=== PATIENT | female | born 1945 | race Caucasian/White ===

== ENCOUNTER → 2016-11-05 | Outpatient (CLI) | payer MEDICARE ==
--- NOTE | 2016-11-09 12:45 | MM ---
Reason for exam: screening (asymptomatic). Last mammogram was performed 1 year ago. History: Patient is postmenopausal. Physical Findings: A clinical breast exam by your physician is recommended on an annual basis and results should be correlated with mammographic findings. MG 3D Screening Mammo W/Cad Bilateral CC and MLO view(s) were taken. Prior study comparison: November 05, 2015, bilateral MG 3d screening mammo w/cad. October 05, 2014, bilateral MG screening mammo w CAD. The breast tissue is almost entirely fat. There is chronic nodularity in the right breast No significant changes when compared with prior studies. ASSESSMENT: Benign, BI-RAD 2 RECOMMENDATION: Routine screening mammogram of both breasts in 1 year.
== END | disposition home or self-care (01) ==
LOC: RADMAMWWP 09:10
PROVIDERS: ATTEND Family Medicine
DX: Z12.31 Encounter for screening mammogram for malignant neoplasm of breast (principal)
CPT/HCPCS: 77063; G0202

== ENCOUNTER → 2016-11-11 | Outpatient (CLI) | payer MEDICARE ==
--- NOTE | 2016-11-12 06:32 | WWHP ---
DATE OF SERVICE: 11/11/2016 CHIEF COMPLAINT: The patient is here for her routine gynecologic exam. HPI: This is a 70-year-old, G2, P2 with an LMP of 1993. The patient is without gynecologic complaints. She denies any postmenopausal bleeding. She does have occasional hot flashes. She did have a mammogram on 11/05/2016, which was benign. PAST MEDICAL HISTORY: Chronic back problems, arthritis, asthma, and hip problems. MEDICATIONS: 1. Hydrocodone t.i.d. p.r.n. 2. Atarax p.r.n. 3. Albuterol inhaler p.r.n. Allergies to ASPIRIN and NSAID medications. Past surgical, GENERALIST, and family histories are unchanged from the 2016 H&P. SOCIAL HISTORY: She has cut down to 1/2 pack of cigarettes per day and has about 3 alcoholic drinks per year and denies drug use. She is not sexually active. REVIEW OF SYSTEMS: She has gained about 19 pounds over the last year. This was after losing about 70 pounds after bariatric surgery. She denies respiratory, cardiac, or GI problems. She denies maltreatment or falling. : She denies any significant urinary leakage problems, but feels like she does urinate more often than she used to in the past. PHYSICAL EXAM: Blood pressure 141/90. Height 5 feet 7 inches. Weight 233 pounds. Temperature 98.4, pulse 87. This a well-developed, heavyset white female who is alert and oriented x3 in no acute distress. HEENT is within normal limits. NECK: Supple without mass or thyromegaly. CHEST AND LUNGS: Clear to auscultation. HEART: Regular rate and rhythm. Breasts are without mass or discharge. Axillary exam is negative for adenopathy. BACK: Negative for CVA tenderness. ABDOMEN: Obese, soft, nontender, without palpable masses. PELVIC EXAM: External genitalia reveals mild to moderate atrophy without lesions. Cervix and vagina reveal mild atrophy without lesions. There is no evidence of prolapse. The uterus is midposition, nongravid size and nontender. There are no palpable adnexal masses or tenderness. Rectovaginal exam is negative for mass or tenderness and is negative for occult blood. EXTREMITIES: Nontender. IMPRESSION: 1. A 70-year-old menopausal female with normal gynecologic exam. 2. Mildly elevated blood pressure. PLAN: 1. Pap smear was deferred, since she had a normal one last year. 2. Self breast examination was discussed. 3. Mammogram will be due in one year. 4. She did get her flu shot early in flu season. 5. We have discussed her mildly elevated blood pressure. She will have her blood pressure checked on a regular basis and follow up with Dr. Gutierrez for blood pressure elevations. 6. I have recommended that she try to quit smoking. 7. She will return in one year.
== END ==
LOC: WWCWWP 11:27
PROVIDERS: ATTEND Obstetrics & Gynecology
DX: Z00.00 Encounter for general adult medical examination without abnormal findings (principal)

== ENCOUNTER 2017-01-02 12:02 | Emergency (ER) | payer MEDICARE ==
[2017-01-02] MEDS ORDERED: MORPHINE SULFATE 4 MG/ML SYRINGE IV STA (12:22)
--- NOTE | 2017-01-02 12:27 | ED ---
General Adult HPI - General Source: EMS, RN notes reviewed Mode of arrival: EMS Limitations: no limitations <Roel Petty - Last Filed: 01/02/17 14:57> <Ger Arita - Last Filed: 01/02/17 15:01> - General Chief complaint: Extremity Injury, Lower Stated complaint: Fall Time Seen by Provider: 01/02/17 12:16 - History of Present Illness Initial comments: Patient 71-year-old female who presents emergency room today by EMS, the chief complaint of fall occurred just prior to arrival. She does admit to a recent hip replacement on 11/17/2016. She states that she was outside sitting a chair pulling weeds. She states she was time for her to move the chair when she got up to move it lost her balance and fell forward. She states she does not believe that she landed on the right hip. She does admit that this is the area that she is experiencing the pain. She states worse with any movement. She denies any head injury or loss consciousness. States she's not on any blood thinners. Denies any other complaints currently. (Roel Petty) - Related Data Home Medications Medication Instructions Recorded Confirmed Baclofen 10 mg PO TID PRN 12/19/14 09/03/15 Ipratropium/Albuterol Sulfate 1 - 2 puff INHALATION RT-QID PRN 12/19/14 09/03/15 [Combivent Respimat Inhaler] Omeprazole [PriLOSEC] 20 mg PO TID 12/19/14 09/03/15 Acetaminophen-Codeine 300-30mg 1 tab PO Q4H PRN 08/28/15 09/03/15 [Tylenol w/codeine #3] Multivitamins, Thera [Multivitamin 1 tab PO DAILY 08/28/15 09/03/15 (formulary)] Previous Rx's Medication Instructions Recorded Cephalexin [Keflex] 500 mg PO Q6HR #28 cap 09/04/15 Docusate [Colace] 100 mg PO BID #30 capsule 09/05/15 HYDROcodone/APAP 7.5-325MG [Prue 1 - 2 each PO Q6HR PRN #60 tab 09/05/15 7.5-325] Warfarin [Coumadin] 1.25 mg PO DAILY #14 tab 09/05/15 Allergies Allergy/AdvReac Type Severity Reaction Status Date / Time aspirin Allergy Anaphylaxis Verified 01/02/17 12:10 hydrocodone Allergy Itching Verified 01/02/17 12:10 NSAIDS (Non-Steroidal Allergy Anaphylaxis,ADDISON Verified 01/02/17 12:10 Anti-Inflamma -PARTHA SYNDROME Review of Systems ROS Other: All systems not noted in ROS Statement are negative. <Roel Petty - Last Filed: 01/02/17 14:57> ROS Other: All systems not noted in ROS Statement are negative. <Ger Arita - Last Filed: 01/02/17 15:01> ROS Statement: Those systems with pertinent positive or pertinent negative responses have been documented in the HPI. Past Medical History Past Medical History: Asthma, COPD, GERD/Reflux, Hearing Disorder / Deafness, Osteoarthritis (OA) Additional Past Medical History / Comment(s): 09/03/15 Pt admitted to floor s/p humeral head resurfacing arthroplasty L shoulder. Other HX: SEMINOLE bilaterally- sometimes wears hearing aides-not here at hospital History of Any Multi-Drug Resistant Organisms: None Reported Past Surgical History: Appendectomy, Bariatric Surgery, Cholecystectomy, Joint Replacement, Orthopedic Surgery, Tonsillectomy, Tubal Ligation Additional Past Surgical History / Comment(s): 09/03/15 Humoral head resurfacing arthroplasty L shoulder. Other surgeries: R humeral head replacement, LEFT KNEE ARTHROSCOPIC, GASTRIC BYPASS,TOTAL LEFT KNEE,RIGHT ULNAR RELEASE Additional Past Anesthesia/Blood Transfusion Reaction / Comment(s): "STATES WITH ULNAR RELEASE SHE WOKE UP DURING THE SURGERY AND FELT PAIN" Past Psychological History: No Psychological Hx Reported Additional Psychological History / Comment(s): Pt has a son who lives with her. She is independent. She has a cane or walker which she uses prn. She drives. Smoking Status: Current every day smoker Past Alcohol Use History: None Reported Additional Past Alcohol Use History / Comment(s): STARTED SMOKING AT AGE 20 Past Drug Use History: None Reported - Past Family History Father Family Medical History: Cancer Additional Family Medical History / Comment(s): LIVER CANCER <Roel Petty - Last Filed: 01/02/17 14:57> General Exam Limitations: no limitations <Roel Petty - Last Filed: 01/02/17 14:57> <Ger Arita - Last Filed: 01/02/17 15:01> - General Exam Comments Initial Comments: General: The patient is awake and alert, in no distress, and does not appear acutely ill. Eye: Pupils are equal, round and reactive to light, extra-ocular movements are intact. No nystagmus. There is normal conjunctiva bilaterally. No signs of icterus. Ears, nose, mouth and throat: There are moist mucous membranes and no oral lesions. Neck: The neck is supple, there is no tenderness or JVD. Cardiovascular: There is a regular rate and rhythm. No murmur, rub or gallop is appreciated. Respiratory: Lungs are clear to auscultation, respirations are non-labored, breath sounds are equal. No wheezes, stridor, rales, or rhonchi. Gastrointestinal: Soft, non-distended, non-tender abdomen without masses or organomegaly noted. There is no rebound or guarding present. No CVA tenderness. Bowel sounds are unremarkable. Musculoskeletal: Patient does have her right knee propped underneath pillow. She does have some tenderness over both the lateral and anterolateral aspects of the right hip. Had pain with a log roll maneuver. Her sensations are intact with pulses equal bilaterally 2+. Patient has no bony tenderness down into the right hip or right ankle. Neurological: A&O x 3. CN II-XII intact, There are no obvious motor or sensory deficits. Coordination appears grossly intact. Speech is normal. Skin: Skin is warm and dry and no rashes or lesions are noted. Psychiatric: Cooperative, appropriate mood & affect, normal judgment. (Roel Petty) Course <Roel Petty - Last Filed: 01/02/17 14:57> <Ger Arita - Last Filed: 01/02/17 15:01> Vital Signs 01/02/17 01/02/17 01/02/17 12:11 13:24 14:15 Temperature 98.7 F Pulse Rate 92 84 90 Respiratory 20 20 Rate Blood Pressure 158/80 157/85 193/89 O2 Sat by Pulse 87 L 87 L 92 L Oximetry 01/02/17 01/02/17 01/02/17 14:16 14:18 14:39 Temperature Pulse Rate 86 84 Respiratory 20 18 16 Rate Blood Pressure 224/102 170/76 168/75 O2 Sat by Pulse 100 100 89 L Oximetry - Reevaluation(s) Reevaluation #1: 05/27/17 13:05 Orthopedic physician floral assistant Kieran was notified and will come to the ER to see patient and to reduce hip. (Roel Petty) Procedures <Roel Petty - Last Filed: 01/02/17 14:57> <Ger Arita - Last Filed: 01/02/17 15:01> - Procedures Initial comment: procedure; conscious sedation. Patient signed consent after explanation for benefits and risks explained. The patient was attended at bedside by the ER physician respiratory therapy technician nurse orthopedic surgeon and also physician's floral assistant. The patient was sedated using 20 mg of etomidate. Good sedation , hip reduced. Post x-ray showed hip to be replaced. Patient tolerated procedure well. Total length of procedure 25 minutes. Vital signs were recorded before during and after. Dr. Arita (Ger Arita) Medical Decision Making <Roel Petty - Last Filed: 01/02/17 14:57> <Ger Arita - Last Filed: 01/02/17 15:01> - Medical Decision Making patient was seen here in the emergency room by orthopedic doctor Dr. Deleon who did perform conscious sedation along with the ER attending Dr. Arita. Reduction films reviewed and shows good reduction. Patient will be discharged home advised follow-up with orthopedic. She's been instructed by or so to not do any bending greater than 90 at that hip. Patient states understanding and is aware the plan. (Roel Petty) Disposition Time of Disposition: 14:55 <Roel Petty - Last Filed: 01/02/17 14:57> <Ger Arita - Last Filed: 01/02/17 15:01> Clinical Impression: Hip dislocation, right Disposition: HOME SELF-CARE Condition: Good Instructions: Hip Dislocation (ED) Additional Instructions: Please follow-up with your orthopedic doctor over the next 2 days. Please refrain from any bending at the hip as discussed. Please return to emergency room if any symptoms increase or worsen or for any other concerns. Referrals: Fan Gutierrez DO [Primary Care Provider] - 1-2 days
[2017-01-02] MEDS ORDERED: ETOMIDATE 2 MG/ML 10 ML VIAL IVP STA (13:24)
--- NOTE | 2017-01-02 13:41 | XR ---
EXAMINATION TYPE: XR Hip RT and AP Pelvis DATE OF EXAM: 01/02/2017 COMPARISON: Right hip 20 July 2016 HISTORY: Trauma and pain 2 views of the right hip, frontal view of the pelvis submitted Patient is status post right hip arthroplasty, there is dislocation at the hip arthroplasty, hip is s omewhat posterior and lateral to the acetabulum. No evident fracture. IMPRESSION: Right hip arthroplasty dislocation
[2017-01-02] MEDS ORDERED: hydrALAZINE HCL 20 MG/ML 1 ML VIAL IVP STA (14:24)
[2017-01-02] MEDS ORDERED: MORPHINE SULFATE 10 MG/ML SYRINGE IVP STA (14:24)
--- NOTE | 2017-01-02 14:43 | P.OP ---
Date of Procedure: 01/02/17 Preoperative Diagnosis: Right total hip arthroplasty dislocation 6 weeks status post right hip total joint arthroplasty done in [facility] Right hip pain status post fall Postoperative Diagnosis: Same Procedure(s) Performed: Implants: Condition: stable Disposition: other (In the emergency room) Indications for Procedure: Operative Findings: Description of Procedure: Preoperative diagnosis: Right hip arthroplasty dislocation status post fall, acute Status post total hip arthroplasty approximately 6 weeks ago done at an outside institution Postoperative diagnosis: Same Procedure: Closed reduction of right hip arthroplasty dislocation Surgeon: Dr. Pancho Coppola.: José Miguel Sanchez who is present that the entire the case persistence during positioning dissection exposure placement of hardware and closure Anesthesia: Sedation per Dr. Arita in the emergency room Disposition: In the emergency room recovery appropriately Operative indications . She initially had been making good progress postoperatively and apparently had an uneventful recovery. She is at home and trying to do some work in her yard pulling weeds while sitting on a seat. She says that when she try to get up she felt sudden pain at her hip and had a fall. She denies any loss of consciousness. She denies any fevers chills night sweats. She denies any neurologic change in her lower extremity. Operative summary After obtaining informed consent evaluation by the emergency room physician, the patient was given etomidate sedation through the IV with the emergency room physician and respiratory as well as nursing staff present with us. The patient was positioned supine position onto her stretcher and when she was fully sedated with her airway and C-spine monitored and maintained we are able to do a closed reduction technique at her right hip with gentle traction and the comminution of internal/external rotation. We able to have an audible clunk and apparent good reduction of the hip prosthesis without apparent, patient. Her hip was taken through a range of motion found have good relative stability and good leg length. Her ulcers remained intact. The patient woke up appropriately and had good relief of her pain and good motor and sensation at her right lower extremity. We're able place a pillow between her legs and reiterate the hip dislocation precautions. She had post reduction x-rays which showed a concentric reduction of the prosthesis without any apparent loosening or fracture around the prosthesis. The patient will be able to be discharged home with appropriate hip dislocation precautions. She has an appointment next week with her orthopedic surgeon in [place] which is encouraged to keep. She will plan to follow up with her own orthopedic surgeon.
--- NOTE | 2017-01-02 14:50 | XR ---
Right hip HISTORY: Hip dislocation, status post relocation Single frontal view of the right hip correlated to previous exam on same date at earlier time. There is been interval reduction of patient's hip dislocation. IMPRESSION: No dislocation evident.
[2017-01-02 16:27] VITALS: BP 159/67; PULSE 94; RESP 18; TEMP 98.1
== END 2017-01-02 16:27 | disposition home or self-care (01) ==
LOC: EC 12:02
DX: S73.004A Unspecified dislocation of right hip, initial encounter (principal); K21.9 Gastro-esophageal reflux disease without esophagitis; F17.200 Nicotine dependence, unspecified, uncomplicated; Z88.6 Allergy status to analgesic agent; Z88.5 Allergy status to narcotic agent; Z96.641 Presence of right artificial hip joint; Z79.899 Other long term (current) drug therapy; W19.XXXA Unspecified fall, initial encounter
CPT/HCPCS: 99284; 99152; 99153; 27265; 96374; 96375; 96376; 73501; 73502; J2270 ×2; J0360

== ENCOUNTER 2017-03-07 20:06 | Emergency (ER) | payer MEDICARE ==
[2017-03-07 20:24] VITALS: TEMP 97.8
[2017-03-07] MEDS ORDERED: MORPHINE SULFATE 4 MG/ML SYRINGE IV STA (21:35)
[2017-03-07 21:42] LABS: Appearance,Urine Clear (Clear); Bacteria,Urine Rare /hpf; Bilirubin,Urine Negative (Negative); Glucose,Urine (UA) Negative (Negative); Ketones,Urine Negative (Negative); Leukocyte Esterase,Urine Trace (Negative); Mucus,Urine Rare /hpf; Nitrite,Urine Negative (Negative); PH, Urine 5.5 (5.0-8.0); Particle Count 1582; Protein,Urine Negative (Negative); RBC,Urine 65 /hpf (0-5); Squamous Epithelial Cell,Urine <1 /hpf (0-4); UA Billing (MACRO vs. MICRO) MICRO; Urobilinogen,Urine <2.0 mg/dL (<2.0); WBC,Urine 8 /hpf (0-5)
--- NOTE | 2017-03-07 21:42 | ED ---
Back Pain HPI - General Chief Complaint: Back Pain/Injury Stated Complaint: back pain Time Seen by Provider: 03/07/17 21:23 Source: patient Limitations: no limitations - History of Present Illness Initial Comments: This patient is a 71-year-old woman who presents to be evaluated for right flank pain. This been going on for a number of weeks. She indicates that it started in the right mid to lower back to the right of her spine and does seem to radiate around the right flank. She states that at times is sharp and sometimes it is burning. She has not noticed any relieving factors, and states that it does seem to be worse with certain movements. She did see her physician and she was given a course of Bactrim to take starting on the . She was told she had urinary tract infection. The patient states that she is not feeling any better following the medication. She does note that she had a fall landing in her low back and buttocks that this occurred toward the end of December. The patient is denying any weakness or numbness of the legs. She has not had any change in urinary or bladder function all other than having a little bit of burning with urination. She denies fever or chills. No rash. No chest or respiratory symptoms. MD Complaint: back pain -: week(s) Similar Symptoms Previously: Yes Place: home Radiation: flank Severity: moderate Quality: burning, aching Improves With: movement, walking Worsens With: none Context: fall - Related Data Home Medications Medication Instructions Recorded Confirmed Baclofen 10 mg PO TID PRN 12/19/14 09/03/15 Ipratropium/Albuterol Sulfate 1 - 2 puff INHALATION RT-QID PRN 12/19/14 09/03/15 [Combivent Respimat Inhaler] Omeprazole [PriLOSEC] 20 mg PO TID 12/19/14 09/03/15 Acetaminophen-Codeine 300-30mg 1 tab PO Q4H PRN 08/28/15 09/03/15 [Tylenol w/codeine #3] Multivitamins, Thera [Multivitamin 1 tab PO DAILY 08/28/15 09/03/15 (formulary)] Previous Rx's Medication Instructions Recorded Cephalexin [Keflex] 500 mg PO Q6HR #28 cap 09/04/15 Docusate [Colace] 100 mg PO BID #30 capsule 09/05/15 HYDROcodone/APAP 7.5-325MG [[place] 1 - 2 each PO Q6HR PRN #60 tab 09/05/15 7.5-325] Warfarin [Coumadin] 1.25 mg PO DAILY #14 tab 09/05/15 Ciprofloxacin HCl [Cipro] 500 mg PO Q12HR #14 tablet 03/08/17 HYDROcodone/APAP 10-325MG [[place] 1 tab PO Q6H PRN #16 tab 03/08/17 10-325] Tamsulosin [Flomax] 0.4 mg PO DAILY #14 cap 03/08/17 Allergies Allergy/AdvReac Type Severity Reaction Status Date / Time aspirin Allergy Anaphylaxis Verified 03/07/17 20:23 hydrocodone Allergy Itching Verified 03/07/17 20:23 NSAIDS (Non-Steroidal Allergy Anaphylaxis,ADDISON Verified 03/07/17 20:23 Anti-Inflamma -PARTHA SYNDROME Review of Systems ROS Statement: Those systems with pertinent positive or pertinent negative responses have been documented in the HPI. ROS Other: All systems not noted in ROS Statement are negative. Constitutional: Denies: fever, chills, weakness Respiratory: Denies: cough, dyspnea Cardiovascular: Denies: chest pain, palpitations, edema Gastrointestinal: Reports: as per HPI, abdominal pain. Denies: nausea, vomiting , diarrhea, constipation Genitourinary: Reports: dysuria. Denies: frequency, hematuria Musculoskeletal: Reports: as per HPI, back pain Skin: Denies: rash Neurological: Denies: headache, weakness, numbness Past Medical History Past Medical History: Asthma, COPD, GERD/Reflux, Hearing Disorder / Deafness, Osteoarthritis (OA) Additional Past Medical History / Comment(s): 09/03/15 Pt admitted to floor s/p humeral head resurfacing arthroplasty L shoulder. Other HX: SALAMATOF bilaterally- sometimes wears hearing aides-not here at hospital History of Any Multi-Drug Resistant Organisms: None Reported Past Surgical History: Appendectomy, Bariatric Surgery, Cholecystectomy, Joint Replacement, Orthopedic Surgery, Tonsillectomy, Tubal Ligation Additional Past Surgical History / Comment(s): 09/03/15 Humoral head resurfacing arthroplasty L shoulder. Other surgeries: R humeral head replacement, LEFT KNEE ARTHROSCOPIC, GASTRIC BYPASS,TOTAL LEFT KNEE,RIGHT ULNAR RELEASE Additional Past Anesthesia/Blood Transfusion Reaction / Comment(s): "STATES WITH ULNAR RELEASE SHE WOKE UP DURING THE SURGERY AND FELT PAIN" Past Psychological History: No Psychological Hx Reported Smoking Status: Current every day smoker Past Alcohol Use History: None Reported Past Drug Use History: None Reported - Past Family History Father Family Medical History: Cancer Additional Family Medical History / Comment(s): LIVER CANCER General Exam Limitations: no limitations General appearance: alert, in no apparent distress, obese Head exam: Present: atraumatic, normocephalic Eye exam: Present: normal appearance. Absent: scleral icterus, conjunctival injection Neck exam: Present: normal inspection, full ROM. Absent: tenderness Respiratory exam: Present: rhonchi. Absent: respiratory distress, wheezes, rales, stridor Cardiovascular Exam: Present: regular rate, normal rhythm, normal heart sounds. Absent: systolic murmur, diastolic murmur, rubs, gallop GI/Abdominal exam: Present: soft. Absent: distended, tenderness, guarding, rebound, rigid, mass Extremities exam: Present: normal inspection, normal capillary refill. Absent: pedal edema, calf tenderness Back exam: Present: normal inspection, CVA tenderness (R), paraspinal tenderness. Absent: CVA tenderness (L), vertebral tenderness Neurological exam: Present: alert. Absent: motor sensory deficit Skin exam: Present: warm, dry, intact, normal color. Absent: rash Course Vital Signs 03/07/17 03/07/17 03/07/17 20:20 22:07 23:17 Temperature 97.8 F Pulse Rate 84 80 74 Respiratory 18 18 16 Rate Blood Pressure 161/73 172/86 156/82 O2 Sat by Pulse 95 96 95 Oximetry Medical Decision Making - Medical Decision Making This patient is 71-year-old woman in with right flank pain. The computed tomography scan does show stone present. She did have significant relief with analgesic and as her kidney function tests appear normal and she has had good relief she would like to follow as an outpatient. Discussed return parameters, including fever, worsening pain, and other symptoms. She will return if she is worse in any way, otherwise follow with urology. - Lab Data Result diagrams: 03/07/17 22:00 03/07/17 22:00 Lab Results 03/07/17 03/07/17 03/07/17 Range/Units 22:00 22:00 Unknown WBC 8.6 (3.8-10.6) k/uL RBC 4.20 (3.80-5.40) m/uL Hgb 12.4 (11.4-16.0) gm/dL Hct 38.5 (34.0-46.0) % MCV 91.6 (80.0-100.0) fL MCH 29.5 (25.0-35.0) pg MCHC 32.3 (31.0-37.0) g/dL RDW 14.4 (11.5-15.5) % Plt Count 273 (150-450) k/uL Neutrophils % 79 % Lymphocytes % 13 % Monocytes % 5 % Eosinophils % 1 % Basophils % 1 % Neutrophils # 6.8 (1.3-7.7) k/uL Lymphocytes # 1.1 (1.0-4.8) k/uL Monocytes # 0.4 (0-1.0) k/uL Eosinophils # 0.1 (0-0.7) k/uL Basophils # 0.0 (0-0.2) k/uL Sodium 139 (137-145) mmol/L Potassium 4.5 (3.5-5.1) mmol/L Chloride 102 (98-107) mmol/L Carbon Dioxide 26 (22-30) mmol/L Anion Gap 11 mmol/L BUN 15 (7-17) mg/dL Creatinine 0.70 (0.52-1.04) mg/dL Est GFR (MDRD) Af Amer >60 (>60 ml/min/1.73 sqM) Est GFR (MDRD) Non-Af >60 (>60 ml/min/1.73 sqM) Glucose 105 H (74-99) mg/dL Calcium 9.6 (8.4-10.2) mg/dL Total Bilirubin 0.3 (0.2-1.3) mg/dL AST 19 (14-36) U/L ALT 24 (9-52) U/L Alkaline Phosphatase 77 (38-126) U/L Total Protein 6.5 (6.3-8.2) g/dL Albumin 3.9 (3.5-5.0) g/dL Amylase 63 (30-110) U/L Lipase 44 (23-300) U/L Urine Color Yellow Urine Appearance Clear (Clear) Urine pH 5.5 (5.0-8.0) Ur Specific [place] 1.010 (1.001-1.035) Urine Protein Negative (Negative) Urine Glucose (UA) Negative (Negative) Urine Ketones Negative (Negative) Urine Blood Moderate H (Negative) Urine Nitrite Negative (Negative) Urine Bilirubin Negative (Negative) Urine Urobilinogen <2.0 (<2.0) mg/dL Ur Leukocyte Esterase Trace H (Negative) Urine RBC 65 H (0-5) /hpf Urine WBC 8 H (0-5) /hpf Ur Squamous Epith Cells <1 (0-4) /hpf Urine Bacteria Rare H (None) /hpf Hyaline Casts 1 (0-2) /lpf Urine Mucus Rare H (None) /hpf Disposition Clinical Impression: Kidney stone Disposition: HOME SELF-CARE Condition: Fair Instructions: Kidney Stones (ED) Prescriptions: Ciprofloxacin HCl [Cipro] 500 mg PO Q12HR #14 tablet HYDROcodone/APAP 10-325MG [Bro[place]mith 10-325] 1 tab PO Q6H PRN #16 tab PRN Reason: Pain Tamsulosin [Flomax] 0.4 mg PO DAILY #14 cap Referrals: Fan Gutierrez DO [Primary Care Provider] - 1-2 days Trevin Saunders MD [STAFF PHYSICIAN] - 1-2 days
[2017-03-07 22:20] LABS: Basophils % (A) 1 %; CH 29.3; CHCM 32.1; Eosinophils # (A) 0.1 k/uL (0-0.7); Eosinophils % (A) 1 %; HCT 38.5 % (34.0-46.0); HDW 2.87; HGB 12.4 gm/dL (11.4-16.0); Luc # (Auto) 0.13; Luc % (Auto) 2; Lymphocytes # (A) 1.1 k/uL (1.0-4.8); Lymphocytes % (A) 13 %; MCH 29.5 pg (25.0-35.0); MCHC 32.3 g/dL (31.0-37.0); MCV 91.6 fL (80.0-100.0); Mean Platelet Volume 6.8; Monocytes # (A) 0.4 k/uL (0-1.0); Monocytes % (A) 5 %; Neutrophils # (A) 6.8 k/uL (1.3-7.7); Neutrophils % (A) 79 %; RDW 14.4 % (11.5-15.5); WBC 8.6 k/uL (3.8-10.6); WBC (Perox) 9.06
[2017-03-07 22:30] LABS: ALT 24 U/L (9-52); AST 19 U/L (14-36); Alkaline Phosphatase 77 U/L (38-126); Amylase 63 U/L (30-110); Anion Gap 11 mmol/L; Blood Urea Nitrogen 15 mg/dL (7-17); Calcium 9.6 mg/dL (8.4-10.2); Carbon Dioxide 26 mmol/L (22-30); Chloride 102 mmol/L (98-107); Glucose 105 mg/dL (74-99); Non-African American GFR(MDRD) >60 (>60 ml/min/1.73 sqM); Potassium 4.5 mmol/L (3.5-5.1); Sodium 139 mmol/L (137-145); Total Bilirubin 0.3 mg/dL (0.2-1.3); Total Protein 6.5 g/dL (6.3-8.2)
[2017-03-07 23:18] VITALS: BP 156/82; PULSE 74; RESP 16
--- NOTE | 2017-03-07 23:58 | CT ---
CT abdomen and pelvis without contrast INDICATION: abdominal pain TECHNIQUE: Multiple, contiguous axial cuts of the abdomen and pelvis are obtained from the lung bases to the ischial tuberosities without contrast. Sagittal and coronal reformatted images are available. Radiation Dose: CTDIvol: 22.4 mGy DLP: 1164.7 mGy-cm This CT exam was performed using one or more of the following dose reduction techniques: automated exposure control, adjustment of the mA and/or kV according to patient size, and/or use of iterative reconstruction technique. COMPARISON: none FINDINGS: Examination is limited by motion. Atelectasis at the lung bases. Motion at lung bases limits evaluation. Nonspecific prominence of the inferior right hilum may be further evaluated by a dedicated contrast enhanced CT of the chest. 3 mm nodule in the lateral right inferior lung lobe. There is a 1.1 cm ill defined hypoattenuation in the left liver lobe. The unenhanced spleen is grossly unremarkable. Gallbladder is surgically absent. There is pancreatic tail appears ill defined. The right adrenal gland appears mildly thickened. 1.2 cm calcification in the region of the inferior right renal pelvis. Additional smaller calcification inferiorly may represent nonobstructing nephroliths vs. a calcification related to papillary necrosis. Right perinephric stranding. There is a 7 mm obstructive proximal right ureteral stone with associated mild to moderate hydronephrosis. Questionable low attenuation focus in the mid posterior left kidney. The distal ureters are not well evaluated. No evidence for left-sided hydronephrosis. There are postsurgical changes of the proximal stomach. Anastomotic suture in the region of the left colon with the nodular hyperdensity. Please correlate with surgical history and colonoscopy was results if available. Scattered colonic diverticulosis. The appendix is not reliably identified. Fat containing umbilical hernia. The pelvic structures are not well evaluated due to streak artifact related to the right hip prosthesis. Aorta is not well evaluated due to lack of intravenous contrast. Focal 2. 2 cm ectasia of the abdominal aorta. Atherosclerotic calcification of the abdominal aorta and its branches. Osseous mineralization appears decreased. Degenerative changes lower lumbar spine. IMPRESSION: 1. There is a 7 mm obstructive proximal right ureteral stone with associated mild to moderate hydronephrosis. Right perinephric stranding may be seen in the setting of pyelonephritis. Additional 1.2 cm calcification in the region of the right inferior renal pelvis which may be a free stone within the collecting system vs a nephrolith. 2. There is a 1.1 cm ill defined hypoattenuation in the left liver lobe and small low attenuation focus in the left kidney, incomplete evaluated and may be further characterized by a dedicated ultrasound. 3. There is a 3 mm nodule in the lateral right inferior lung lobe. Comparison to prior studies would be helpful if available. Follow up imaging may be considered depending on clinical risk factors per Fleischner Society recommendations. 4. There is pancreatic tail appears ill defined and underlying lesion is difficult exclude. Correlation with prior examinations would be helpful. 5. Scattered colonic diverticulosis.
== END 2017-03-08 01:00 | disposition home or self-care (01) ==
LOC: EC 20:06
DX: N13.2 Hydronephrosis with renal and ureteral calculous obstruction (principal); K57.30 Diverticulosis of large intestine without perforation or abscess without bleeding; K21.9 Gastro-esophageal reflux disease without esophagitis; F17.200 Nicotine dependence, unspecified, uncomplicated; Z90.49 Acquired absence of other specified parts of digestive tract; Z88.5 Allergy status to narcotic agent; Z88.6 Allergy status to analgesic agent; Z79.899 Other long term (current) drug therapy
CPT/HCPCS: 99284; 96374; 36415; 80053; 82150; 83690; 85025; 81001; 87086; 74176; J2270

== ENCOUNTER → 2017-03-19 | Outpatient (CLI) | payer MEDICARE ==
--- NOTE | 2017-03-19 13:57 | XR ---
Abdomen HISTORY: Kidney stone Frontal view of the abdomen on 2 images correlated to previous exam dated 03/07/2017 CT abdomen pelvis Calcification at the mid to lower pole of the right kidney measures approximately 13 mm in greatest d imension. Smaller calculi are present immediately adjacent at the lower pole level measuring only 2 t o 3 mm. The previously identified right ureteral calculus seen on CT is not seen definitively on plai n film but may be stable at approximately the L5-S1 level in the paraspinal location. Bowel gas may o bscure detail. Surgical clips are present in the right upper quadrant. Lung bases are clear, some min imal scarring present in the left lower lobe. No pneumoperitoneum or bowel obstruction evident. Posto p changes are noted to the bowel. Patient is status post right hip arthroplasty. There are phlebolith s in the pelvis. IMPRESSION: Right-sided nephrolithiasis.
== END ==
LOC: RADXRMAIN 11:12
PROVIDERS: ATTEND Physician Assistant
DX: N20.0 Calculus of kidney (principal)
CPT/HCPCS: 74000

== ENCOUNTER → 2017-04-02 | Outpatient (CLI) | payer MEDICARE ==
--- NOTE | 2017-04-02 10:00 | XR ---
EXAMINATION TYPE: XR abdomen 1V DATE OF EXAM: 04/02/2017 COMPARISON: 03/19/2017 HISTORY: Renal calculus TECHNIQUE: One view abdominal series FINDINGS: The osseous structures are intact. The bowel gas pattern is nonspecific. Hypertrophic and degenerati ve change of the spine. Previous surgery right hip. Previous surgery gallbladder fossa. There is a 13 mm calcification right renal pelvis. 2 smaller less than 5 mm calculi are also seen. Calcifications in the pelvis are again noted. Appears to be a new calculus measuring 3 mm in diameter overlying the expected region of the UVJ or bladder. IMPRESSION: 1. Stable right-sided renal calculi unchanged from the previous exam 2. There may be a new calcification within the pelvis on the right measuring approximately 3 mm in di ameter which could represent a distal ureteral calculus given was not present on the previous exam.
== END ==
LOC: RADXRMAIN 09:40
PROVIDERS: ATTEND Urology
DX: N20.1 Calculus of ureter (principal)
CPT/HCPCS: 74000

== ENCOUNTER → 2017-04-19 | Outpatient (CLI) | payer MEDICARE ==
[2017-04-19 10:39] LABS: Basophils % (A) 1 %; CH 28.2; CHCM 31.1; Eosinophils # (A) 0.1 k/uL (0-0.7); Eosinophils % (A) 2 %; HCT 40.3 % (34.0-46.0); HDW 2.88; HGB 12.5 gm/dL (11.4-16.0); Hypochromasia Slight; Luc # (Auto) 0.08; Luc % (Auto) 2; Lymphocytes # (A) 1.5 k/uL (1.0-4.8); Lymphocytes % (A) 31 %; MCH 28.1 pg (25.0-35.0); MCHC 30.9 g/dL (31.0-37.0); MCV 91.1 fL (80.0-100.0); Mean Platelet Volume 6.1; Monocytes # (A) 0.2 k/uL (0-1.0); Monocytes % (A) 5 %; Neutrophils % (A) 60 %; RBC 4.43 m/uL (3.80-5.40); RDW 14.6 % (11.5-15.5); WBC 4.9 k/uL (3.8-10.6); WBC (Perox) 5.24
[2017-04-19 11:05] LABS: Blood Urea Nitrogen 18 mg/dL (7-17); Calcium 9.3 mg/dL (8.4-10.2); Chloride 106 mmol/L (98-107); Glucose 86 mg/dL (74-99); Sodium 144 mmol/L (137-145)
[2017-04-19 11:26] LABS: Anion Gap 8 mmol/L; Carbon Dioxide 30 mmol/L (22-30); Non-African American GFR(MDRD) >60 (>60 ml/min/1.73 sqM); Potassium 4.2 mmol/L (3.5-5.1)
== END | disposition home or self-care (01) ==
LOC: LABPAT 09:07
PROVIDERS: ATTEND Physician Assistant
DX: Z01.812 Encounter for preprocedural laboratory examination (principal); N20.1 Calculus of ureter; R53.83 Other fatigue; Z79.899 Other long term (current) drug therapy
CPT/HCPCS: 80048; 85025

== ENCOUNTER 2017-04-26 05:51 | Day surgery (SDC) | payer MEDICARE ==
[2017-04-23 10:11] VITALS: BMI 36.0
[~2017-04-26 05:51] MED LIST: DEXAMETHASONE SOD PHOSPHATE 10 MG/ML 1 ML VIAL IV ONE; HYDROmorphone 1 MG/ML 1 ML SYRINGE IVP PRN; LACTATED RINGERS 1,000 ML IV SCH; ONDANSETRON 4 MG/2 ML VIAL IVP ONE; Pre Op ABX Message 1 EACH MISC MISCELLANE ONE
[2017-04-26 06:32] VITALS: RESP 20; TEMP 96.9
[2017-04-26] MEDS ORDERED: LIDOCAINE 1% 20 ML VIAL (10MG/ML) FOR IV START INTRADERMA ONE (06:43)
--- NOTE | 2017-04-26 07:15 | XR ---
EXAMINATION TYPE: XR KUB DATE OF EXAM: 04/26/2017 CLINICAL DATA: 71-year-old female preop right lithotripsy for kidney stone, [facility] COMPARISON: 03/19/2017 FINDINGS: Supine imaging limited for assessment of free intraperitoneal air. Nonobstructive bowel gas pattern with moderate overall stool. Cholecystectomy clips. Redemonstrated 1.6 cm calculus in the right mid abdomen. Bowel content partially obscures the renal s hadows. Multiple pelvic phlebolith are noted. Partially visualized right hip total arthroplasty and degenerative changes in the lumbar spine. IMPRESSION: Stable 1.6 cm right-sided renal calculus.
[2017-04-26] MEDS ORDERED: fentaNYL (PF) 50 MCG/ML 2 ML AMP ONE (07:25)
[2017-04-26] MEDS ORDERED: PROPOFOL 10 MG/ML 20 ML VIAL IV ONE (07:25)
--- NOTE | 2017-04-26 08:11 | P.OP ---
Date of Procedure: 04/26/17 Preoperative Diagnosis: Right renal calculus Postoperative Diagnosis: Same Procedure(s) Performed: Shockwave lithotripsy right 2500 shocks at energy level IV Anesthesia: MAC Surgeon: Trevin Saunders Estimated Blood Loss (ml): 0 Pathology: none sent Condition: stable Disposition: PACU Indications for Procedure: The patient is a 71-year-old female with kidney stones. She had a ureteral stone which she passed. She has a 16 mm right renal pelvic stone and comes for shockwave lithotripsy Description of Procedure: Patient is brought to the operating suite and given IV sedation on the lithotripsy table. As on KUB the stone is seen in the right renal pelvis. No other stones are seen. 2500 shocks at energy level IVR administered to fracture the stone. The stone fractures. The patient's awake and returned recovery in good condition. She was discharged home upon recovery and found the office in one week.
[2017-04-26 09:09] VITALS: BP 139/80; PULSE 66
== END 2017-04-26 09:25 | disposition home or self-care (01) ==
LOC: ORWHC2ENDO 05:51
PROVIDERS: ATTEND Urology
DX: N20.2 Calculus of kidney with calculus of ureter (principal); J44.9 Chronic obstructive pulmonary disease, unspecified; F17.200 Nicotine dependence, unspecified, uncomplicated; I10 Essential (primary) hypertension; K21.9 Gastro-esophageal reflux disease without esophagitis; Z79.891 Long term (current) use of opiate analgesic; Z79.899 Other long term (current) drug therapy; Z88.6 Allergy status to analgesic agent; Z88.5 Allergy status to narcotic agent
CPT/HCPCS: 74000; 50590; J1100; J2405; J3010; J2704

== ENCOUNTER → 2017-04-30 | Outpatient (CLI) | payer MEDICARE ==
--- NOTE | 2017-04-30 12:51 | XR ---
Abdomen HISTORY: Calculus of ureter, status post ESWL Frontal view of the abdomen submitted on 2 images Correlation to prior abdomen 04/26/2017 There is been fragmentation of the renal calculus on the right. Stone shows fragmented appearance, pr obable 2-3 fragments present measuring 1 cm, 7 mm, 4 mm present at the site of the previous stone. Ad ditional calcification present at the midpole the right kidney measures 4-5 mm. Lung bases are clear. No pneumoperitoneum or bowel obstruction. Question calcification in the liver. Surgical clips presen t in the right upper quadrant. Degenerative disc changes in the visualized spine. Probable phlebolith s in the pelvis. Patient is status post right hip arthroplasty. Surgical clips in the left upper quad rant. IMPRESSION: Status post lithotripsy findings as described. Right nephrolithiasis.
== END | disposition home or self-care (01) ==
LOC: RADXRMAIN 09:36
PROVIDERS: ATTEND Physician Assistant
DX: N20.0 Calculus of kidney (principal); Z98.890 Other specified postprocedural states
CPT/HCPCS: 74000

== ENCOUNTER → 2017-06-22 | Outpatient (CLI) | payer MEDICARE ==
--- NOTE | 2017-06-22 15:16 | CT ---
EXAMINATION TYPE: CT abdomen pelvis wo con DATE OF EXAM: 06/22/2017 COMPARISON: 03/07/2017 HISTORY: 71 year-old female left ureteral stone CT DLP: 1048 mGycm. Automated exposure control for dose reduction was used. TECHNIQUE: Contiguous axial scanning of the abdomen and pelvis without IV contrast. Coronal and sagit bert reconstructions performed. FINDINGS: Heart is normal size without pericardial effusion. Strandy atelectasis/scarring at the lung bases wit hout pleural effusion. Postsurgical changes of Cesar-en-Y gastric bypass. Prominent just debris distending the gastric pouch and crossing the gastrojejunostomy. Noncontrast appearance of the liver, adrenal glands, spleen, and mildly atrophic pancreas show no timur ss abnormality. Vague hypodensity posterior left kidney too small for accurate CT characterization, probable cyst. There are 3 nonobstructing calculi in the right kidney measuring up to 7 mm. No suspicious calcificat ion seen along the course of either ureter or hydronephrosis. No dilated small bowel, free fluid, or free air. No mesenteric or retroperitoneal lymphadenopathy. Moderate sized periumbilical hernia measuring 5.7 cm craniocaudal and 4.0 cm wide. The abdominal wall defect is very narrow string only millimeters wide. Moderate atherosclerotic calcifications within the abdominal aorta and iliac arteries with circumaort ic left renal vein There is moderate stool and mild sigmoid diverticulosis. No pericolonic inflammatory change. Prominent artifact from the patient's right hip total arthroplasty limits visualization of the pelvis . Uterus and ovaries are visualized. No abnormal fluid collections in the pelvis. No evident pelvic l ymphadenopathy. Bones: Degenerative changes lower lumbar spine. No osseous destructive process. IMPRESSION: 1. Right-sided nephrolithiasis measuring up to 7 mm. No hydronephrosis seen on either side or suspic ious ureteral calculus. 2. Prominent congested and redistributed in the gastric pouch and crossing the gastrojejunostomy. 3. Moderate sized omental fat-containing umbilical hernia measuring 5.7 cm. 4. Mild sigmoid diverticulosis.
== END | disposition home or self-care (01) ==
LOC: RADCTMAIN 14:08
PROVIDERS: ATTEND Urology
DX: N20.0 Calculus of kidney (principal); K42.9 Umbilical hernia without obstruction or gangrene; K57.30 Diverticulosis of large intestine without perforation or abscess without bleeding; Z93.1 Gastrostomy status
CPT/HCPCS: 74176

== ENCOUNTER 2017-08-12 12:40 | Inpatient (IN) | payer MEDICARE ==
[2017-08-12 13:19] LABS: Appearance,Urine Clear (Clear); Bacteria,Urine Many /hpf; Bilirubin,Urine Negative (Negative); Blood,Urine Small (Negative); Color,Urine Yellow; Glucose,Urine (UA) Negative (Negative); Ketones,Urine Negative (Negative); Leukocyte Esterase,Urine Small (Negative); Mucus,Urine Rare /hpf; Nitrite,Urine Negative (Negative); Protein,Urine 1+ (Negative); RBC,Urine 10 /hpf (0-5); Squamous Epithelial Cell,Urine 1 /hpf (0-4); Urobilinogen,Urine <2.0 mg/dL (<2.0); WBC,Urine 24 /hpf (0-5)
[2017-08-12] MEDS ORDERED: LABETALOL 5 MG/ML VIAL MDV IVP STA (14:20)
--- NOTE | 2017-08-12 14:30 | ED ---
Female Urogenital HPI - General Chief complaint: Urogenital Stated complaint: UTI Time Seen by Provider: 08/12/17 13:42 Source: patient, family, RN notes reviewed, old records reviewed Mode of arrival: ambulatory Limitations: physical limitation - History of Present Illness Initial comments: 71-year-old female with history of urosepsis presents with 1 day of right flank pain, dysuria. She is reports she's not been on any recent antibiotics. She has a history of CHF, and septic pyelonephritis due to E. coli April. She denies any specific chest pain or shortness of breath. She reports no nausea or vomiting. She states the pain is mainly in her right flank to lower pelvis and radiates down her leg.. Patient states she has not had a fever but reports she feels chilled. - Related Data Home Medications Medication Instructions Recorded Confirmed Acetaminophen Tab [Tylenol Tab] 650 mg PO Q6H PRN 08/12/17 08/12/17 Albuterol Inhaler [Ventolin Hfa 2 puff INHALATION RT-Q6H PRN 08/12/17 08/12/17 Inhaler] Aspirin EC [Ecotrin Low Dose] 81 mg PO DAILY 08/12/17 08/12/17 Atorvastatin [Lipitor] 40 mg PO HS 08/12/17 08/12/17 Carvedilol [Coreg] 12.5 mg PO BID 08/12/17 08/12/17 Clopidogrel Bisulfate [Plavix] 75 mg PO DAILY 08/12/17 08/12/17 HYDROcodone/APAP 10-325MG [[place] 1 tab PO TID PRN 08/12/17 08/12/17 10-325] Lisinopril [Zestril] 20 mg PO DAILY 08/12/17 08/12/17 Tolterodine Tartrate [Detrol LA] 4 mg PO DAILY 08/12/17 08/12/17 Allergies Allergy/AdvReac Type Severity Reaction Status Date / Time aspirin Allergy Anaphylaxis Verified 08/12/17 13:41 NSAIDS (Non-Steroidal Allergy Anaphylaxis,ADDISON Verified 08/12/17 13:41 Anti-Inflamma -PARTHA SYNDROME paper tape Allergy welt Uncoded 08/12/17 12:51 Review of Systems ROS Statement: Those systems with pertinent positive or pertinent negative responses have been documented in the HPI. ROS Other: All systems not noted in ROS Statement are negative. Past Medical History Past Medical History: Asthma, COPD, GERD/Reflux, Hearing Disorder / Deafness, Myocardial Infarction (MA), Osteoarthritis (OA) Additional Past Medical History / Comment(s): 09/03/15 Pt admitted to floor s/p humeral head resurfacing arthroplasty L shoulder. Other HX: EGEGIK bilaterally- sometimes wears hearing aides-not here at hospital History of Any Multi-Drug Resistant Organisms: ESBL Date of last positivie culture/infection: 04/2017 MDRO Source:: urine Past Surgical History: Heart Catheterization, Joint Replacement Additional Past Surgical History / Comment(s): 09/03/15 Humoral head resurfacing arthroplasty L shoulder. Other surgeries: R humeral head replacement, LEFT KNEE ARTHROSCOPIC, GASTRIC BYPASS,TOTAL LEFT KNEE,RIGHT ULNAR RELEASE Additional Past Anesthesia/Blood Transfusion Reaction / Comment(s): "STATES WITH ULNAR RELEASE SHE WOKE UP DURING THE SURGERY AND FELT PAIN" Past Psychological History: No Psychological Hx Reported Smoking Status: Current every day smoker Past Alcohol Use History: Occasional Past Drug Use History: None Reported - Past Family History Sister(s) Family Medical History: Pulmonary Embolus Father Family Medical History: Cancer Additional Family Medical History / Comment(s): LIVER CANCER General Exam - General Exam Comments Initial Comments: This is a 71-year-old female. No distress. Limitations: physical limitation General appearance: alert, in no apparent distress Head exam: Present: atraumatic, normocephalic, normal inspection Eye exam: Present: normal appearance, PERRL, EOMI. Absent: scleral icterus, conjunctival injection, periorbital swelling ENT exam: Present: normal exam, mucous membranes moist Neck exam: Present: normal inspection. Absent: tenderness, meningismus, lymphadenopathy Respiratory exam: Present: normal lung sounds bilaterally. Absent: respiratory distress, wheezes, rales, rhonchi, stridor Cardiovascular Exam: Present: regular rate, normal rhythm, normal heart sounds. Absent: systolic murmur, diastolic murmur, rubs, gallop, clicks GI/Abdominal exam: Present: soft, normal bowel sounds, other (Right CVA tenderness). Absent: distended, tenderness, guarding, rebound, rigid Extremities exam: Present: normal inspection, full ROM, normal capillary refill. Absent: tenderness, pedal edema, joint swelling, calf tenderness Back exam: Present: normal inspection Neurological exam: Present: alert, oriented X3, CN II-XII intact Psychiatric exam: Present: normal affect, normal mood Course Vital Signs 08/12/17 08/12/17 08/12/17 12:44 13:53 14:50 Temperature 98.6 F 97.8 F Pulse Rate 93 94 84 Respiratory 22 16 16 Rate Blood Pressure 204/95 206/95 175/105 O2 Sat by Pulse 93 L 95 95 Oximetry 08/12/17 08/12/17 08/12/17 14:54 15:32 15:44 Temperature Pulse Rate 89 91 91 Respiratory 20 18 18 Rate Blood Pressure 195/88 172/80 131/78 O2 Sat by Pulse 95 95 94 L Oximetry 08/12/17 17:11 Temperature Pulse Rate 91 Respiratory 18 Rate Blood Pressure 123/72 O2 Sat by Pulse 93 L Oximetry Medical Decision Making - Medical Decision Making 71-year-old female with history of CHF, and septic pyelonephritis presents today with 1 day of right flank pain and dysuria. Patient does have history of renal stones. KUB x-ray was completed today and the show 1 cm stone within the right lower renal pelvis. Patient's urinalysis is positive for white blood cells and red blood cells. Will send for culture. Minimal leukocytosis with left shift noted. Kidney function within normal limits. She does have a history of CHF, her BNP is mildly elevated at 1020. Patient is maintained on multiple medications for this at this time. Discussed with Dr. Arita. He requests patient be admitted for IV antibiotics. Given the history of sepsis with known E. coli in the past, patient will be started on Unasyn. Patient's family understands treatment plan. Pt CXR also shows evidence of possible early infiltrate in left mid lung, she does have cough. Patient started on IV unasyn for early pneumonia and UTI, pyelonephritis. - Lab Data Result diagrams: 08/12/17 14:34 08/12/17 14:34 Lab Results 08/12/17 08/12/17 08/12/17 Range/Units 12:57 14:34 14:34 WBC 8.9 (3.8-10.6) k/uL RBC 4.30 (3.80-5.40) m/uL Hgb 12.7 (11.4-16.0) gm/dL Hct 41.0 (34.0-46.0) % MCV 95.2 (80.0-100.0) fL MCH 29.6 (25.0-35.0) pg MCHC 31.1 (31.0-37.0) g/dL RDW 15.8 H (11.5-15.5) % Plt Count 228 (150-450) k/uL Neutrophils % 89 % Lymphocytes % 7 % Monocytes % 2 % Eosinophils % 1 % Basophils % 0 % Neutrophils # 7.9 H (1.3-7.7) k/uL Lymphocytes # 0.6 L (1.0-4.8) k/uL Monocytes # 0.1 (0-1.0) k/uL Eosinophils # 0.1 (0-0.7) k/uL Basophils # 0.0 (0-0.2) k/uL Hypochromasia Slight PT (9.0-12.0) sec INR (<1.2) APTT (22.0-30.0) sec Sodium (137-145) mmol/L Potassium (3.5-5.1) mmol/L Chloride (98-107) mmol/L Carbon Dioxide (22-30) mmol/L Anion Gap mmol/L BUN (7-17) mg/dL Creatinine (0.52-1.04) mg/dL Est GFR (MDRD) Af Amer (>60 ml/min/1.73 sqM) Est GFR (MDRD) Non-Af (>60 ml/min/1.73 sqM) Glucose (74-99) mg/dL Plasma Lactic Acid Dennis (0.7-2.0) mmol/L Calcium (8.4-10.2) mg/dL Total Bilirubin (0.2-1.3) mg/dL AST (14-36) U/L ALT (9-52) U/L Alkaline Phosphatase (38-126) U/L Total Creatine Kinase 49 (30-135) U/L CK-MB (CK-2) 0.4 (0.0-2.4) ng/mL CK-MB (CK-2) Rel Index 0.8 Troponin I 0.014 (0.000-0.034) ng/mL NT-Pro-B Natriuret Pep pg/mL Total Protein (6.3-8.2) g/dL Albumin (3.5-5.0) g/dL Urine Color Yellow Urine Appearance Clear (Clear) Urine pH 7.0 (5.0-8.0) Ur Specific [place] 1.010 (1.001-1.035) Urine Protein 1+ H (Negative) Urine Glucose (UA) Negative (Negative) Urine Ketones Negative (Negative) Urine Blood Small H (Negative) Urine Nitrite Negative (Negative) Urine Bilirubin Negative (Negative) Urine Urobilinogen <2.0 (<2.0) mg/dL Ur Leukocyte Esterase Small H (Negative) Urine RBC 10 H (0-5) /hpf Urine WBC 24 H (0-5) /hpf Ur Squamous Epith Cells 1 (0-4) /hpf Urine Bacteria Many H (None) /hpf Urine Mucus Rare H (None) /hpf 08/12/17 08/12/17 08/12/17 Range/Units 14:34 14:34 14:34 WBC (3.8-10.6) k/uL RBC (3.80-5.40) m/uL Hgb (11.4-16.0) gm/dL Hct (34.0-46.0) % MCV (80.0-100.0) fL MCH (25.0-35.0) pg MCHC (31.0-37.0) g/dL RDW (11.5-15.5) % Plt Count (150-450) k/uL Neutrophils % % Lymphocytes % % Monocytes % % Eosinophils % % Basophils % % Neutrophils # (1.3-7.7) k/uL Lymphocytes # (1.0-4.8) k/uL Monocytes # (0-1.0) k/uL Eosinophils # (0-0.7) k/uL Basophils # (0-0.2) k/uL Hypochromasia PT 10.0 (9.0-12.0) sec INR 1.0 (<1.2) APTT 21.8 L (22.0-30.0) sec Sodium 140 (137-145) mmol/L Potassium 4.1 (3.5-5.1) mmol/L Chloride 101 (98-107) mmol/L Carbon Dioxide 30 (22-30) mmol/L Anion Gap 9 mmol/L BUN 19 H (7-17) mg/dL Creatinine 0.74 (0.52-1.04) mg/dL Est GFR (MDRD) Af Amer >60 (>60 ml/min/1.73 sqM) Est GFR (MDRD) Non-Af >60 (>60 ml/min/1.73 sqM) Glucose 119 H (74-99) mg/dL Plasma Lactic Acid Dennis 1.3 (0.7-2.0) mmol/L Calcium 9.5 (8.4-10.2) mg/dL Total Bilirubin 0.7 (0.2-1.3) mg/dL AST 25 (14-36) U/L ALT 27 (9-52) U/L Alkaline Phosphatase 65 (38-126) U/L Total Creatine Kinase (30-135) U/L CK-MB (CK-2) (0.0-2.4) ng/mL CK-MB (CK-2) Rel Index Troponin I (0.000-0.034) ng/mL NT-Pro-B Natriuret Pep pg/mL Total Protein 6.4 (6.3-8.2) g/dL Albumin 3.9 (3.5-5.0) g/dL Urine Color Urine Appearance (Clear) Urine pH (5.0-8.0) Ur Specific [place] (1.001-1.035) Urine Protein (Negative) Urine Glucose (UA) (Negative) Urine Ketones (Negative) Urine Blood (Negative) Urine Nitrite (Negative) Urine Bilirubin (Negative) Urine Urobilinogen (<2.0) mg/dL Ur Leukocyte Esterase (Negative) Urine RBC (0-5) /hpf Urine WBC (0-5) /hpf Ur Squamous Epith Cells (0-4) /hpf Urine Bacteria (None) /hpf Urine Mucus (None) /hpf 08/12/17 Range/Units 14:34 WBC (3.8-10.6) k/uL RBC (3.80-5.40) m/uL Hgb (11.4-16.0) gm/dL Hct (34.0-46.0) % MCV (80.0-100.0) fL MCH (25.0-35.0) pg MCHC (31.0-37.0) g/dL RDW (11.5-15.5) % Plt Count (150-450) k/uL Neutrophils % % Lymphocytes % % Monocytes % % Eosinophils % % Basophils % % Neutrophils # (1.3-7.7) k/uL Lymphocytes # (1.0-4.8) k/uL Monocytes # (0-1.0) k/uL Eosinophils # (0-0.7) k/uL Basophils # (0-0.2) k/uL Hypochromasia PT (9.0-12.0) sec INR (<1.2) APTT (22.0-30.0) sec Sodium (137-145) mmol/L Potassium (3.5-5.1) mmol/L Chloride (98-107) mmol/L Carbon Dioxide (22-30) mmol/L Anion Gap mmol/L BUN (7-17) mg/dL Creatinine (0.52-1.04) mg/dL Est GFR (MDRD) Af Amer (>60 ml/min/1.73 sqM) Est GFR (MDRD) Non-Af (>60 ml/min/1.73 sqM) Glucose (74-99) mg/dL Plasma Lactic Acid Dennis (0.7-2.0) mmol/L Calcium (8.4-10.2) mg/dL Total Bilirubin (0.2-1.3) mg/dL AST (14-36) U/L ALT (9-52) U/L Alkaline Phosphatase (38-126) U/L Total Creatine Kinase (30-135) U/L CK-MB (CK-2) (0.0-2.4) ng/mL CK-MB (CK-2) Rel Index Troponin I (0.000-0.034) ng/mL NT-Pro-B Natriuret Pep 1030 pg/mL Total Protein (6.3-8.2) g/dL Albumin (3.5-5.0) g/dL Urine Color Urine Appearance (Clear) Urine pH (5.0-8.0) Ur Specific [place] (1.001-1.035) Urine Protein (Negative) Urine Glucose (UA) (Negative) Urine Ketones (Negative) Urine Blood (Negative) Urine Nitrite (Negative) Urine Bilirubin (Negative) Urine Urobilinogen (<2.0) mg/dL Ur Leukocyte Esterase (Negative) Urine RBC (0-5) /hpf Urine WBC (0-5) /hpf Ur Squamous Epith Cells (0-4) /hpf Urine Bacteria (None) /hpf Urine Mucus (None) /hpf 08/12/17 14:50 EKG shows normal sinus rhythm, nonspecific ST and T-wave abnormalities. Ventricular rate of [address] interval 140 ms. QRS duration 80 ms. QT QTc is 322/413 ms. No evidence of ST elevation. - Radiology Data Radiology results: report reviewed mild peripheral infiltrate left mid lung. Correlate for atelectasis. Early pneumonia not excluded. 1cm right renal stone, inferior pole right kidney, overlying right iliac crest. Disposition Clinical Impression: Pyelonephritis, Pneumonia involving left lung Disposition: ADMITTED IP TO THIS HOSP Condition: Stable Time of Disposition: 16:40
[2017-08-12] MEDS: SODIUM CHLORIDE 0.9% 1,000 ML IV SCH (14:51)
[2017-08-12] MEDS: SODIUM CHLORIDE 0.9% 1,000 ML IV ONE (14:51)
[2017-08-12 14:57] LABS: Basophils % (A) 0 %; Eosinophils # (A) 0.1 k/uL (0-0.7); Eosinophils % (A) 1 %; HGB 12.7 gm/dL (11.4-16.0); Hypochromasia Slight; Lymphocytes # (A) 0.6 k/uL (1.0-4.8); Lymphocytes % (A) 7 %; MCH 29.6 pg (25.0-35.0); MCHC 31.1 g/dL (31.0-37.0); MCV 95.2 fL (80.0-100.0); Mean Platelet Volume 6.7; Monocytes # (A) 0.1 k/uL (0-1.0); Monocytes % (A) 2 %; Neutrophils # (A) 7.9 k/uL (1.3-7.7); Neutrophils % (A) 89 %; Platelet Count 228 k/uL (150-450); RDW 15.8 % (11.5-15.5); WBC 8.9 k/uL (3.8-10.6)
[2017-08-12 15:13] LABS: ALT 27 U/L (9-52); AST 25 U/L (14-36); Albumin 3.9 g/dL (3.5-5.0); Alkaline Phosphatase 65 U/L (38-126); Anion Gap 9 mmol/L; Blood Urea Nitrogen 19 mg/dL (7-17); Calcium 9.5 mg/dL (8.4-10.2); Carbon Dioxide 30 mmol/L (22-30); Chloride 101 mmol/L (98-107); Glucose 119 mg/dL (74-99); Potassium 4.1 mmol/L (3.5-5.1); Sodium 140 mmol/L (137-145); Total Bilirubin 0.7 mg/dL (0.2-1.3); Total Protein 6.4 g/dL (6.3-8.2)
[2017-08-12 15:31] LABS: Creatine Kinase MB 0.4 ng/mL (0.0-2.4); Troponin I 0.014 ng/mL (0.000-0.034)
[2017-08-12] MEDS ORDERED: MORPHINE SULFATE 5 MG/ML SYRINGE IVP STA (15:31)
[2017-08-12] MEDS ORDERED: ONDANSETRON 4 MG/2 ML VIAL IVP STA (15:33)
[2017-08-12 15:44] LABS: Partial Thromboplastin Time 21.8 sec (22.0-30.0)
--- NOTE | 2017-08-12 15:49 | XR ---
EXAMINATION TYPE: XR KUB DATE OF EXAM: 08/12/2017 COMPARISON: 04/30/2017 INDICATION: Pain right flank TECHNIQUE: Single view abdomen upright view FINDINGS: There is a normal bowel gas pattern. Psoas margins are normal. No organomegaly is present. There may be partial visualization of the right inferior pole renal stone measuring 1.0 cm. Nonspecif ic bowel gas is present. Previous calcifications overlying the right kidney are poorly visualized. IMPRESSION: 1. 1 cm right renal stone inferior pole right kidney overlying the right iliac crest.
--- NOTE | 2017-08-12 15:50 | XR ---
EXAMINATION TYPE: XR chest 2V DATE OF EXAM: 08/12/2017 COMPARISON: 01/30/2016 INDICATION: Difficulty breathing short of breath TECHNIQUE: Frontal and lateral views of the chest are obtained. FINDINGS: The heart size is normal. The pulmonary vasculature is somewhat prominent.. There is some mild peripheral infiltrate within the left midlung.. IMPRESSION: 1. Mild peripheral infiltrate left midlung. Correlate for atelectasis. Early pneumonia is not exclude d.
[2017-08-12] MEDS ORDERED: AMPICILLIN-SULBACTAM 3 GM in SODIUM CHLORIDE 0.9% 100 ML IVPB STA (16:11)
[2017-08-12] MEDS ORDERED: NALOXONE 0.4 MG/ML 1 ML VIAL IV PRN (16:41)
[2017-08-12] MEDS ORDERED: LORazepam 0.5 MG TAB PO PRN (16:41)
[2017-08-12] MEDS ORDERED: TEMAZEPAM 15 MG CAP PO PRN (16:41)
[2017-08-12] MEDS ORDERED: ONDANSETRON 4 MG/2 ML VIAL IVP PRN (16:41)
[2017-08-12] MEDS ORDERED: ALBUTEROL NEBULIZED 2.5 MG/3 ML INHALATION PRN (17:43)
[2017-08-12] MEDS ORDERED: ALPRAZolam 0.25 MG TAB PO PRN (17:43)
[2017-08-12] MEDS: ACETAMINOPHEN TAB 325 MG TAB PO PRN ×2 (18:30→23:29)
[2017-08-12] MEDS: CARVEDILOL 12.5 MG TAB PO SCH (18:30)
[2017-08-12] MEDS: ATORVASTATIN 40 MG TAB PO SCH (20:07)
[2017-08-12] MEDS: HEPARIN SODIUM,PORCINE 5,000 UNIT/ML 1 ML VIAL SQ SCH (20:07)
--- NOTE | 2017-08-12 21:03 | HP ---
HISTORY AND PHYSICAL DATE OF SERVICE: 08/12/2017 CHIEF COMPLAINT: Back pain and right flank pain and dysuria. HISTORY OF PRESENT ILLNESS: This 71-year-old woman with a past medical history of UTI, sepsis, asthma, COPD , GERD, myocardial infarction, DJD being followed by Dr. Jacobson in the outpatient setting also had a history of ESBL E coli also. The patient was recently at [facility] after [facility] evaluation apparently with UTI, the results are not available. Currently the patient complaining of right flank pain as well as dysuria. Patient came to [facility] and was admitted for further evaluation and treatment. The patient had possibly features of UTI and pyelonephritis. There is no history of fever, rigors or chills. No history of headache, loss of consciousness or seizures. PAST MEDICAL HISTORY: History of asthma, COPD, GERD, hard of hearing, myocardial infarction, DJD, history of cardiac catheterization. MEDICATIONS: Prior to admission include: 1. Detrol LA 4 mg p.o. daily. 2. Lisinopril 20 mg p.o. daily. 3. Plavix 75 mg p.o. daily. 4. Coreg 12.5 mg p.o. b.i.d. 5. Lipitor 40 mg q.h.s. 6. Ecotrin 81 mg p.o. daily. 7. Ventolin HFA 2 puffs q.6h p.r.n. 8. Tylenol 650 q.6 p.r.n. 9. Malcolm 10 mg t.i.d. p.r.n. ALLERGIES: ASPIRIN, NSAIDS, PAPER TAPE. FAMILY HISTORY: Liver cancer in the family. SOCIAL HISTORY: History of smoking on a regular basis. No history of alcohol intake. REVIEW OF SYSTEMS: ENT: Diminished vision, diminished hearing. Cardio system: No angina or palpitations. Respiratory: As mentioned earlier. GI: As mentioned earlier. as mentioned earlier. Nervous system: No numbness, weakness. Allergy/Immunology: No asthma or hayfever. Musculoskeletal: As mentioned earlier. HEMATOLOGY/ONCOLOGY: No history of anemia. ENDOCRINE: No history of diabetes. Hypothyroidism. CONSTITUTIONAL: As mentioned. Dermatology: Negative. Rheumatology: Negative. Psychiatric: As mentioned earlier. PHYSICAL EXAMINATION: Alert and oriented times three. Pulse 91, blood pressure 123/72, respiration 18 , temp is normal. Pulse ox 98% on 2 L. HEENT: Conjunctivae normal. Oral mucosa moist. Neck is no jugular venous distention. No carotid bruit. No lymph node enlargement. Cardiovascular S1-S2. No S3, No S4. Respiratory: Breath sounds diminished in the bases. A few scattered rhonchi. No crackles. ABDOMEN: Soft, obese, nontender. No mass palpable. Legs no edema. No swelling. Central nervous system: Higher functions as mentioned earlier. Moves all four extremities. No focal motor or sensory deficits. Lymphatics: No lymph nodes palpable in the neck, axillae or groin. Skin no ulcer, rash or bleeding. Right minimal tenderness present. Bilateral leg edema. LABS: WBC 8.1, hemoglobin 12.7. Glucose 119. UA noted. ASSESSMENT: 1. Acute right pyelonephritis with a urinary tract infection. No evidence of sepsis. 2. History of asthma, chronic obstructive pulmonary disease. 3. Gastroesophageal reflux disease. 4. Hard of hearing. 5. Myocardial infarction. 6. Coronary artery disease. 7. History of degenerative joint disease. 8. History of ESBL E coli. 9. FULL CODE. 10.Obesity, body mass index 37. RECOMMENDATIONS AND DISCUSSION: This 71-year-old woman who presented with multiple complex medical issues, we will monitor the patient closely. I would recommend to continue current medication, continue symptomatic treatment. Otherwise at this time I recommend broad- spectrum IV antibiotics. Obtain cultures. Symptomatic treatment provided. Cautious IV fluids. Guarded prognosis because of multiple complex medical issues. See orders for details. Resume the home medications. Guarded prognosis. Further recommendations to follow. A copy of this dictation forwarded to Dr. Jacobson who is the primary care physician. MMMATHEUSL / IJN: [id number] / [facility]
[2017-08-12] MEDS: SODIUM CHLORIDE 0.9% 250 ML IV SCH (21:57)
[2017-08-12] MEDS: MORPHINE SULFATE 5 MG/ML SYRINGE IV PRN (22:27)
[2017-08-12 23:14] LABS: Glucose,Whole Blood 100 mg/dL (75-99)
[2017-08-12 23:29] LABS: Calcium 8.5 mg/dL (8.4-10.2); Magnesium 1.3 mg/dL (1.6-2.3); Phosphorus 4.8 mg/dL (2.5-4.5); Potassium 4.5 mmol/L (3.5-5.1)
[2017-08-12 23:30] LABS: HCT 39.2 % (34.0-46.0); HGB 12.1 gm/dL (11.4-16.0); Hypochromasia Slight; MCH 29.6 pg (25.0-35.0); MCHC 30.8 g/dL (31.0-37.0); MCV 96.2 fL (80.0-100.0); Mean Platelet Volume 6.3; Platelet Count 215 k/uL (150-450); RBC 4.08 m/uL (3.80-5.40); RDW 14.4 % (11.5-15.5)
--- NOTE | 2017-08-12 23:36 | XR ---
EXAMINATION TYPE: XR chest 1V portable DATE OF EXAM: 08/12/2017 COMPARISON: Today HISTORY: Short of breath TECHNIQUE: Single frontal view of the chest is obtained. FINDINGS: Heart is enlarged. There is pulmonary vascular congestion. Thoracic aorta is atheromatous. There is no definite pleural effusion. IMPRESSION: There is evidence of congestive heart failure with pulmonary congestion is slightly wors e than exam earlier today.
[2017-08-12 23:58] LABS: Poikilocytosis (M) Present
[2017-08-13] MEDS ORDERED: FUROSEMIDE 10 MG/ML 2 ML VIAL IV STA (00:05)
[2017-08-13] MEDS ORDERED: IPRATROPIUM-ALBUTEROL 3 ML NEB INHALATION PRN (00:06)
[2017-08-13] MEDS: SODIUM CHLORIDE 0.9% 250 ML IV SCH ×3 (00:50→00:52)
[2017-08-13] MEDS: AMPICILLIN-SULBACTAM 3 GM in SODIUM CHLORIDE 0.9% 100 ML IVPB SCH (00:53)
[2017-08-13] MEDS ORDERED: SODIUM CHLORIDE 0.9% 500 ML IV ONE (03:17)
[2017-08-13 05:42] LABS: HCT 33.8 % (34.0-46.0); HGB 10.5 gm/dL (11.4-16.0); MCH 29.4 pg (25.0-35.0); MCHC 31.1 g/dL (31.0-37.0); MCV 94.4 fL (80.0-100.0); Mean Platelet Volume 6.3; Platelet Count 162 k/uL (150-450); RBC 3.59 m/uL (3.80-5.40); RDW 14.8 % (11.5-15.5); WBC 10.8 k/uL (3.8-10.6)
[2017-08-13 06:23] LABS: Band Neutrophils % 15 %; Lymphocytes # (M) 0.97 k/uL (1.0-4.8); Monocytes # (M) 0.11 k/uL (0-1.0); Myelocytes # (M) 0.11 k/uL (0); Myelocytes % 1 %; Neutrophils % (M) 74 %; Nucleated Red Blood Cells 0 /100 WBC (0-0); Total Cells Counted 200
[2017-08-13] MEDS ORDERED: NOREPINEPHRIN 4 MG-0.9% NS PMX 4 MG/250 ML ML IV SCH (07:30)
[2017-08-13 08:10] LABS: Magnesium 1.3 mg/dL (1.6-2.3); Phosphorus 2.9 mg/dL (2.5-4.5); Potassium 3.3 mmol/L (3.5-5.1)
[2017-08-13] MEDS: IPRATROPIUM-ALBUTEROL 3 ML NEB INHALATION SCH ×4 (08:13→19:38)
[2017-08-13 08:43] LABS: Amorphous Sediment,Urine Occasional /hpf; Appearance,Urine Cloudy (Clear); Bacteria,Urine Rare /hpf; Bilirubin,Urine Negative (Negative); Blood,Urine Small (Negative); Color,Urine Yellow; Glucose,Urine (UA) Negative (Negative); Hyaline Casts,Urine 9 /lpf (0-2); Ketones,Urine Negative (Negative); Leukocyte Esterase,Urine Large (Negative); Mucus,Urine Rare /hpf; Nitrite,Urine Negative (Negative); PH, Urine 5.5 (5.0-8.0); Protein,Urine 2+ (Negative); RBC,Urine 26 /hpf (0-5); Specific Gravity,Urine 1.016 (1.001-1.035); Squamous Epithelial Cell,Urine 1 /hpf (0-4); Urobilinogen,Urine <2.0 mg/dL (<2.0); WBC,Urine 174 /hpf (0-5)
[2017-08-13] MEDS ORDERED: PANTOPRAZOLE 40 MG/10 ML VIAL IV SCH (09:00)
[2017-08-13] MEDS ORDERED: ASPIRIN 81 MG PO SCH (09:00)
[2017-08-13] MEDS ORDERED: Potassium Replacement Protocol 1 EACH MISC MISCELLANE PRN (09:35)
[2017-08-13] MEDS ORDERED: POTASSIUM CHLORIDE ER 20 MEQ TAB.ER PO SCH (10:00)
[2017-08-13] MEDS ORDERED: MEROPENEM 1 GM in SODIUM CHLORIDE 0.9% 100 ML IVPB SCH (10:00)
[2017-08-13] MEDS: SODIUM CHLORIDE 0.9% 1,000 ML IV ONE (10:00)
[2017-08-13] MEDS: CARVEDILOL 12.5 MG TAB PO SCH ×2 (10:30→16:17)
[2017-08-13] MEDS: SODIUM CHLORIDE 0.9% 1,000 ML IV SCH ×7 (10:32→20:23)
[2017-08-13] MEDS: HEPARIN SODIUM,PORCINE 5,000 UNIT/ML 1 ML VIAL SQ SCH ×2 (10:33→20:23)
[2017-08-13] MEDS: NICOTINE 14MG/24HR PATCH TRANSDERM SCH (10:33)
[2017-08-13] MEDS: OXYBUTYNIN XL 5 MG TAB.ER.24 PO SCH (10:33)
[2017-08-13] MEDS: CLOPIDOGREL 75 MG TAB PO SCH (10:34)
[2017-08-13] MEDS: LISINOPRIL 20 MG TAB PO SCH (10:46)
--- NOTE | 2017-08-13 11:46 | XR ---
EXAMINATION TYPE: XR chest 1V confirm line plcnm DATE OF EXAM: 08/13/2017 COMPARISON: 08/12/2017 HISTORY: Line placement TECHNIQUE: Single frontal view of the chest is obtained. FINDINGS: Heart is enlarged and there is left lower lobe infiltrate with small effusion. Left-sided central line seen with the tip overlying the SVC. No pneumothorax. Diffuse osteopenia noted. Arthropathy of the shoulders. No overt failure. IMPRESSION: 1. Left lower lobe infiltrate and small effusion with no sizable pneumothorax. 2. Central line noted with tip overlying the SVC.
[2017-08-13] MEDS: NOREPINEPHRIN 16 MG-0.9%NS PMX 16 MG/250 ML ML IV SCH (12:00)
--- NOTE | 2017-08-13 12:27 | P.CNPUL ---
History of Present Illness Consult date: 08/13/17 Chief complaint: Urine infection/sepsis History of present illness: 71 yo Old female patient with known history of kidney stones and recurrent urine tract infections. The patient came in through the emergency department yesterday because of shaking chills and feeling very weak and fatigued. For that reason she came into the hospital. She was having also on and off pain along the right flank area radiating to the right lower abdominal and the patient was concern of a recurrent urine tract infection knowing that she has had frequent UTIs in the past most recent of which was around 2 weeks ago for which she was given Macrobid on outpatient basis. Note that the patient has had previous CAT scan that was evaluated and seen by Dr. Alfaro. The patient had a 7 mm proximal ureteral calculus and another 1.2 cm lower pole right renal calculus. She has passed stone in the past. The last KUB that was done on showed a 3 mm distal UVJ calculus. She was having micro-hematuria. She underwent ESWL for the large stone in the right kidney on 04/26/2017. She was initially seen in the emergency department following that she was admitted to the medical floor. She was started on IV Unasyn. Subsequently she became hypotensive with her systolic blood pressure dropped down to the low 70s. She was given a total of 3 L and she remained hypotensive and following that she was started on pressors. Currently she is on 25 mics of levo fed which is running through a peripheral line in the right upper extremity. Also she is having some iron of CVA angle tenderness in the right flank area. The patient denies having any hematuria. Denies having any recent cloudiness in her urine. Her white cell count was suppressed initially with a white cell count of 1.0 and subsequently her white cell count came up to 10.8. She has 15 % bandemia. Her renal function is also abnormal and she has an acute kidney injury. She presents to the kidney function with a creatinine of 0.7 and her current creatinine is up to 1.4. She was started on IV Unasyn and this was later on switched to Merrem due to concerns of ESBL producing E. coli. She has been apparently infected by ESBL producing organisms in the past. A KUB was done in the emergency department that showed a 1 cm right renal stone in the inferior pole of the right kidney overlying the right iliac crest. The chest x- ray showed no acute abnormalities and there is evidence of mild pulmonary vascular congestion compared to yesterday's chest x-ray. She is known to have COPD. She is known to have recurrent urine checked infection and nephrolithiasis. Review of Systems Constitutional: Reports fatigue, Reports lethargy, Reports weakness Eyes: denies blurred vision, denies bulging eye, denies decreased vision Ears: bilateral: decreased hearing, deny: ear discharge, earache Ears, nose, mouth and throat: Denies headache, Denies sore throat Cardiovascular: Denies chest pain, Denies shortness of breath Respiratory: Denies cough Gastrointestinal: Denies abdominal pain, Denies diarrhea, Denies nausea, Denies vomiting Genitourinary: Reports dysuria, Reports hematuria, Reports kidney stones Integumentary: Denies pruritus, Denies rash Neurological: Reports weakness Psychiatric: Denies anxiety, Denies depression Endocrine: Denies fatigue, Denies weight change Hematologic/Lymphatic: Reports as per HPI Allergic/Immunologic: Reports as per HPI Past Medical History Past Medical History: Asthma, COPD, GERD/Reflux, Hearing Disorder / Deafness, Myocardial Infarction (AL), Osteoarthritis (OA) Additional Past Medical History / Comment(s): COPD, nephrolithiasis and kidney stones, history of coronary artery disease with previous AL, degenerative arthritis, bilateral shoulder replacement, knee replacement, impaired hearing, acid reflux, previous urine checked infection with ESBL producing E. coli. Last Myocardial Infarction Date:: 05-04-17 hfh(per pt) History of Any Multi-Drug Resistant Organisms: ESBL Date of last positivie culture/infection: 04/2017 MDRO Source:: urine Past Surgical History: Heart Catheterization, Joint Replacement Additional Past Surgical History / Comment(s): Shoulder bilateral shoulder replacement, left knee replacement, gastric bypass surgery, right ulnar nerve release, shock wave lithotripsy for nephrolithiasis, cardiac catheterization, cholecystectomy Additional Past Anesthesia/Blood Transfusion Reaction / Comment(s): "STATES WITH ULNAR RELEASE SHE WOKE UP DURING THE SURGERY AND FELT PAIN" Past Psychological History: No Psychological Hx Reported Smoking Status: Current every day smoker Past Alcohol Use History: Occasional Past Drug Use History: None Reported - Past Family History Sister(s) Family Medical History: Pulmonary Embolus Father Family Medical History: Cancer Additional Family Medical History / Comment(s): LIVER CANCER Medications and Allergies Home Medications Medication Instructions Recorded Confirmed Type Acetaminophen Tab [Tylenol Tab] 650 mg PO Q6H PRN 08/12/17 08/12/17 History Albuterol Inhaler [Ventolin Hfa 2 puff INHALATION RT-Q6H PRN 08/12/17 08/12/17 History Inhaler] Aspirin EC [Ecotrin Low Dose] 81 mg PO DAILY 08/12/17 08/12/17 History Atorvastatin [Lipitor] 40 mg PO HS 08/12/17 08/12/17 History Carvedilol [Coreg] 12.5 mg PO BID 08/12/17 08/12/17 History Clopidogrel Bisulfate [Plavix] 75 mg PO DAILY 08/12/17 08/12/17 History HYDROcodone/APAP 10-325MG [[place] 1 tab PO TID PRN 08/12/17 08/12/17 History 10-325] Lisinopril [Zestril] 20 mg PO DAILY 08/12/17 08/12/17 History Tolterodine Tartrate [Detrol LA] 4 mg PO DAILY 08/12/17 08/12/17 History Allergies Allergy/AdvReac Type Severity Reaction Status Date / Time aspirin Allergy Anaphylaxis Verified 08/12/17 13:41 NSAIDS (Non-Steroidal Allergy Anaphylaxis,ADDISON Verified 08/12/17 13:41 Anti-Inflamma -PARTHA SYNDROME paper tape Allergy welt Uncoded 08/12/17 12:51 Physical Exam Vitals: Vital Signs Temp Pulse Pulse Pulse Resp BP BP 08/13/17 10:00 71 25 H 80/44 08/13/17 09:45 70 22 71/48 08/13/17 09:30 72 14 77/45 08/13/17 09:15 72 17 67/43 08/13/17 09:00 68 13 73/47 08/13/17 08:45 74 21 71/45 08/13/17 08:30 74 17 71/51 08/13/17 08:24 74 08/13/17 08:15 83 22 69/44 08/13/17 08:14 81 08/13/17 08:00 97.9 F 82 22 70/46 08/13/17 07:45 77 17 64/42 08/13/17 07:30 78 17 78/45 08/13/17 07:15 83 22 78/45 08/13/17 07:11 87 28 H 78/45 08/13/17 06:10 99.1 F 22 80/48 08/13/17 06:00 81 77/51 08/13/17 04:45 22 08/13/17 04:30 22 08/13/17 04:25 86 22 93/51 08/13/17 03:38 20 84/54 08/13/17 02:35 22 88/54 08/13/17 02:10 94 22 78/51 08/13/17 00:54 87 22 90/53 08/13/17 00:12 85 24 116/59 08/13/17 00:09 101 H 136/70 08/12/17 23:45 99.1 F 101 H 28 H 109/57 08/12/17 23:25 107 H 145/78 08/12/17 23:15 106 H 187/92 08/12/17 23:08 108 H 08/12/17 23:05 107 H 196/93 08/12/17 23:00 108 H 32 H 205/96 08/12/17 22:58 106 H 08/12/17 22:54 100.6 F H 118 H 38 H 182/121 08/12/17 22:30 98.4 F 76 114/61 08/12/17 21:00 98.2 F 66 18 90/50 08/12/17 18:14 100.3 F H 104 H 22 100/63 08/12/17 17:48 104 H 18 08/12/17 17:11 91 18 123/72 08/12/17 15:44 91 18 131/78 08/12/17 15:32 91 18 172/80 08/12/17 14:54 89 20 195/88 08/12/17 14:50 84 16 175/105 08/12/17 13:53 97.8 F 94 16 206/95 08/12/17 12:44 98.6 F 93 22 204/95 Pulse Ox 08/13/17 10:00 96 08/13/17 09:45 96 08/13/17 09:30 96 08/13/17 09:15 97 08/13/17 09:00 97 08/13/17 08:45 96 08/13/17 08:30 93 L 08/13/17 08:24 95 08/13/17 08:15 95 08/13/17 08:14 08/13/17 08:00 93 L 08/13/17 07:45 92 L 08/13/17 07:30 93 L 08/13/17 07:15 90 L 08/13/17 07:11 91 L 08/13/17 06:10 92 L 08/13/17 06:00 08/13/17 04:45 92 L 08/13/17 04:30 87 L 08/13/17 04:25 96 08/13/17 03:38 94 L 08/13/17 02:35 92 L 08/13/17 02:10 87 L 08/13/17 00:54 93 L 08/13/17 00:12 92 L 08/13/17 00:09 88 L 08/12/17 23:45 88 L 08/12/17 23:25 08/12/17 23:15 08/12/17 23:08 08/12/17 23:05 08/12/17 23:00 08/12/17 22:58 08/12/17 22:54 93 L 08/12/17 22:30 08/12/17 21:00 92 L 08/12/17 18:14 92 L 08/12/17 17:48 08/12/17 17:11 93 L 08/12/17 15:44 94 L 08/12/17 15:32 95 08/12/17 14:54 95 08/12/17 14:50 95 08/12/17 13:53 95 08/12/17 12:44 93 L Intake and Output 08/12/17 08/13/17 08/13/17 22:59 06:59 14:59 Intake Total 281 509 6239 Output Total 192 Balance 800 950 933 Intake: IV 950 1125 Sodium Chloride 0.9% 1, 200 000 ml @ 50 mls/hr IV . Q20H LULU Rx#:[id number] Sodium Chloride 0.9% 1, 1000 000 ml @ 999 mls/hr IV . Q1H1M ONE Rx#:[id number] Sodium Chloride 0.9% 250 250 ml @ 999 mls/hr IV .Q16M LULU Rx#:[id number] Sodium Chloride 0.9% 500 500 125 ml @ 125 mls/hr IV .Q4H ONE Rx#:[id number] Intake, IV Titration 500 Amount Sodium Chloride 0.9% 1, 250 000 ml @ 50 mls/hr IV . Q20H LULU Rx#:[id number] Sodium Chloride 0.9% 250 250 ml @ 999 mls/hr IV .Q16M LULU Rx#:[id number] Oral 300 Output: Urine 192 Other: Voiding Method Toilet Indwelling Catheter Diaper # Voids 2 3 Weight 108 kg 108 kg Patient Weight 08/14/17 06:59 Weight 108 kg The patient appeared well nourished and normally developed. Vital signs as documented. Head exam is unremarkable. No scleral icterus or corneal arcus noted. Neck is without jugular venous distension, thyromegaly, or carotid bruits. Carotid upstrokes are brisk bilaterally. Lungs are diminished breath sounds bilaterally along with some scattered expiratory wheezes secondary to her underlying COPD.. Cardiac exam reveals the PMI to be normally sized and situated. Rhythm is regular. First and second heart sounds normal. No murmurs, rubs or gallops. Abdominal exam reveals normal bowel sounds, no masses, no organomegaly and no aortic enlargement. He has a right CVA angle tenderness. Extremities are nonedematous and both femoral and pedal pulses are normal.Examination of the skin revealed no evidence of significant rashes, suspicious appearing nevi or other concerning lesions. Neurologically patient is awake and alert and she is moving all 4 extremities. Results - Laboratory Findings CBC and BMP: 08/13/17 05:27 08/13/17 05:27 PT/INR, D-dimer PT 10.0 sec (9.0-12.0) 08/12/17 14:34 INR 1.0 (<1.2) 08/12/17 14:34 Abnormal lab findings: Abnormal Labs 08/12/17 08/12/17 08/12/17 12:57 14:34 14:34 WBC RBC Hgb Hct MCHC RDW 15.8 H Neutrophils # 7.9 H Neutrophils # (Manual) Lymphocytes # 0.6 L Lymphocytes # (Manual) Myelocytes # (Manual) APTT Potassium BUN 19 H Creatinine Glucose 119 H POC Glucose (mg/dL) Plasma Lactic Acid Dennis Calcium Phosphorus Magnesium Urine Appearance Urine Protein 1+ H Urine Blood Small H Ur Leukocyte Esterase Small H Urine RBC 10 H Urine WBC 24 H Urine WBC Clumps Amorphous Sediment Urine Bacteria Many H Hyaline Casts Urine Mucus Rare H 08/12/17 08/12/17 08/12/17 14:34 22:51 23:03 WBC 1.0 L* RBC Hgb Hct MCHC 30.8 L RDW Neutrophils # Neutrophils # (Manual) Lymphocytes # Lymphocytes # (Manual) Myelocytes # (Manual) APTT 21.8 L Potassium BUN Creatinine Glucose POC Glucose (mg/dL) 100 H Plasma Lactic Acid Dennis Calcium Phosphorus Magnesium Urine Appearance Urine Protein Urine Blood Ur Leukocyte Esterase Urine RBC Urine WBC Urine WBC Clumps Amorphous Sediment Urine Bacteria Hyaline Casts Urine Mucus 08/12/17 08/12/17 08/13/17 23:03 23:03 05:27 WBC 10.8 H RBC 3.59 L Hgb 10.5 L Hct 33.8 L MCHC RDW Neutrophils # Neutrophils # (Manual) 9.60 H Lymphocytes # Lymphocytes # (Manual) 0.97 L Myelocytes # (Manual) 0.11 H APTT Potassium BUN 20 H Creatinine 1.10 H Glucose POC Glucose (mg/dL) Plasma Lactic Acid Dennis 3.1 H* Calcium Phosphorus 4.8 H Magnesium 1.3 L Urine Appearance Urine Protein Urine Blood Ur Leukocyte Esterase Urine RBC Urine WBC Urine WBC Clumps Amorphous Sediment Urine Bacteria Hyaline Casts Urine Mucus 08/13/17 08/13/17 05:27 08:00 WBC RBC Hgb Hct MCHC RDW Neutrophils # Neutrophils # (Manual) Lymphocytes # Lymphocytes # (Manual) Myelocytes # (Manual) APTT Potassium 3.3 L BUN 26 H Creatinine 1.43 H Glucose 108 H POC Glucose (mg/dL) Plasma Lactic Acid Dennis Calcium 8.0 L Phosphorus Magnesium 1.3 L Urine Appearance Cloudy H Urine Protein 2+ H Urine Blood Small H Ur Leukocyte Esterase Large H Urine RBC 26 H Urine WBC 174 H Urine WBC Clumps Occasional H Amorphous Sediment Occasional H Urine Bacteria Rare H Hyaline Casts 9 H Urine Mucus Rare H - Diagnostic Findings Chest x-ray: image reviewed Assessment and Plan Plan: 1 septic shock secondary to a urine tract infection/complicated UTI with possible pyelonephritis involving the right kidney. Rule out a complicated urine checked infection knowing that the patient has history of nephrolithiasis and kidney stones as discussed earlier. Underlying obstructive uropathy needs to be considered in association with kidney stones. 2 breath arises with previous history of right kidney and ureteral stones, status post shockwave lithotripsy and the patient has history of recurrent urinary tract infection 3 previous history of gram-negative/E. coli UTI with possibly an ESBL producing organism 4 acute kidney injury 5 COPD/asthma 6 coronary artery disease previous AL 7 degenerative arthritis Plan The patient will be given another bolus of 1 L making the total number of boluses to 4 L. Increase his IV fluid maintenance 150 mL an hour. Continue IV Merrem. CAT scan of the abdomen and pelvis stone protocol to rule out hydronephrosis and rule out any obstructive uropathy. Pressors for hemodynamic support. A triple lumen catheter will be inserted. Monitor urine output. Monitor renal function. Awaiting the results of the urine and the blood cultures. Immediate urology consultation. Heparin subcu for DVT prophylaxis. We'll continue to follow make further recommendations based on her progress.
--- NOTE | 2017-08-13 12:40 | CT ---
EXAMINATION TYPE: CT abdomen pelvis wo con DATE OF EXAM: 08/13/2017 HISTORY: Pyelonephritis CT DLP: 1938 mGycm. Automated Exposure Control for Dose Reduction was Utilized. TECHNIQUE: CT scan of the abdomen and pelvis is performed without oral or IV contrast. COMPARISON: CT abdomen and pelvis June 22, 2017 FINDINGS: Within the limitations of a non-contrast study, the following observations are made. LUNG BASES: There are new tiny bilateral pleural effusions. There is associated bibasilar atelectasis and/or infiltrates. There is mild cardiomegaly. There is coronary artery calcification. LIVER/GB: Cholecystectomy clips are seen. There is mild extra hepatic biliary dilatation measuring up to 14 mm coronal image 31, this is not significantly changed from prior. Mild central intrahepatic b iliary dilatation is also noted. PANCREAS: No significant abnormality is seen. SPLEEN: No significant abnormality is seen. ADRENALS: No significant abnormality is seen. KIDNEYS: There is stable 8 mm calculus upper to mid pole level right kidney on coronal image 52. Ther e has been interval passage of 7 mm lower pole right renal calculus now proximal right ureter axial i mage 44 causing mild right-sided hydronephrosis and proximal hydroureter. There is moderate to severe right-sided perinephric fluid extending into the right retroperitoneum inferiorly. Third 3 mm smalle r calculus right kidney on coronal image 44 prior study is not clearly identified on today's study davies spect interval passage. Some scattered pelvic phleboliths are seen. BOWEL: Surgical changes from gastric bypass procedure at level of stomach are redemonstrated. Sigmoid colonic diverticulosis is redemonstrated without CT evidence for acute diverticulitis. GENITAL ORGANS: Heterogeneous slightly prominent uterine fundus raises concern for underlying fibroid axial image 71. LYMPH NODES: No greater than 1cm abdominal or pelvic lymph nodes are appreciated. OSSEOUS STRUCTURES: Metallic artifact right hip arthroplasty causes streak artifact limiting evaluati on of pelvic structures. OTHER: There is moderate calcified atherosclerotic change of aorta extending into pelvic branch vesse ls. There is stable moderate to large sized umbilical hernia containing fat and small umbilical vesse ls near axial image 51. IMPRESSION: Interval passage of 7 mm right renal calculus now at proximal ureter level causing obstru ctive mild right-sided hydronephrosis and moderate to severe right-sided retroperitoneal ill-defined fluid.
[2017-08-13] MEDS: MAGNESIUM SULFATE-D5W PMX 1 GM in DEXTROSE/WATER 1 100ML.BAG IVPB SCH ×2 (16:17→17:28)
--- NOTE | 2017-08-13 16:30 | P.GSCN ---
History of Present Illness Consult date: 08/13/17 Reason for Consult: Sepsis and right ureteral calculus History of present illness: The patient is a 71-year-old female admitted through the emergency room yesterday evening for evaluation of right flank pain associated with a probable urinary tract infection. The patient said that she first developed right flank pain on the evening of 08/11. It was associated with chills and shaking but the patient does not think she had a fever. She noted dark urine but no dysuria or increased frequency. The patient was seen in the emergency room and had a white blood count of 8900. Lactic acid was 1.3. BUN/creatinine was 19/0.74. Urinalysis suggested a urinary tract infection but was negative for nitrite. The patient was started on Unasyn and admitted. She developed hypotension overnight and her white blood count at 11 PM on 08/12 was 1000. BUN/creatinine at that time was 20/1.10 and lactic acid was 3.1. She was transferred to the intensive care unit and required levophed and fluids to support her blood pressure. She has improved clinically and is currently being weaned off the pressors. Computed tomography scan of the abdomen and pelvis without IV contrast was performed late this morning and identified edema of the right kidney consistent with acute pyelonephritis. There appeared to be a partially obstructive 5 x 7 mm calculus in the right ureter at the L4 level. There was also a nonobstructive right renal calculus measuring 5 or 6 mm in diameter. She denies any abdominal pain at the present time but does complain of low back pain which she says is chronic. She felt well enough that she ate lunch. The patient has a history of a right ureteral calculus which was discovered on a computed tomography scan performed for evaluation of right flank pain in 2016. She was seen by in 03/2017 and at that time had an E. coli urinary tract infection which was treated. She eventually passed the right ureteral calculus. She had a 9 x 16 mm calculus in the right kidney and underwent elective ESWL treatment on 04/26/2017. She developed fever associated with sepsis later in the month while she was in the [place] area and was admitted to a [facility] facility where she was treated with antibiotics and placement of a right double-J catheter due to ureteral obstruction presumably from a calculus fragment. She said that she had a myocardial infarction in the perioperative period. The double-J catheter was eventually removed in 06/2017. The patient says that she was treated with Macrobid for a urinary tract infection subsequent to that. She says that she saw Dr. Jacobson in early July and a urinalysis was performed but she was never informed whether she had persistent infection. Review of Systems - Constitutional Reports chills, Reports sweats - Cardiovascular Denies chest pain, Denies shortness of breath - Respiratory Denies cough, Denies wheezing - Gastrointestinal Reports as per HPI - Genitourinary Genitourinary: Reports as per HPI Past Medical History Past Medical History: Asthma, COPD, GERD/Reflux, Hearing Disorder / Deafness, Myocardial Infarction (IN), Osteoarthritis (OA) Additional Past Medical History / Comment(s): COPD, nephrolithiasis and kidney stones, history of coronary artery disease with previous IN, degenerative arthritis, bilateral shoulder replacement, knee replacement, impaired hearing, acid reflux, previous urine checked infection with ESBL producing E. coli. Last Myocardial Infarction Date:: 05-04-17 hf(per pt) History of Any Multi-Drug Resistant Organisms: ESBL Year Discovered:: 04/2017 MDRO Source:: urine Past Surgical History: Bariatric Surgery, Heart Catheterization, Joint Replacement Additional Past Surgical History / Comment(s): Shoulder bilateral shoulder replacement, left knee replacement, gastric bypass surgery, right ulnar nerve release, shock wave lithotripsy for nephrolithiasis, cardiac catheterization, cholecystectomy, cystoscopy with placement of right double-J catheter Additional Past Anesthesia/Blood Transfusion Reaction / Comm: "STATES WITH ULNAR RELEASE SHE WOKE UP DURING THE SURGERY AND FELT PAIN" Past Psychological History: No Psychological Hx Reported Smoking Status: Current every day smoker Past Alcohol Use History: Occasional Past Drug Use History: None Reported - Past Family History Sister(s) Family Medical History: Pulmonary Embolus Father Family Medical History: Cancer Additional Family Medical History / Comment(s): LIVER CANCER Medications and Allergies Home Medications Medication Instructions Recorded Confirmed Type Acetaminophen Tab [Tylenol Tab] 650 mg PO Q6H PRN 08/12/17 08/12/17 History Albuterol Inhaler [Ventolin Hfa 2 puff INHALATION RT-Q6H PRN 08/12/17 08/12/17 History Inhaler] Aspirin EC [Ecotrin Low Dose] 81 mg PO DAILY 08/12/17 08/12/17 History Atorvastatin [Lipitor] 40 mg PO HS 08/12/17 08/12/17 History Carvedilol [Coreg] 12.5 mg PO BID 08/12/17 08/12/17 History Clopidogrel Bisulfate [Plavix] 75 mg PO DAILY 08/12/17 08/12/17 History HYDROcodone/APAP 10-325MG [[place] 1 tab PO TID PRN 08/12/17 08/12/17 History 10-325] Lisinopril [Zestril] 20 mg PO DAILY 08/12/17 08/12/17 History Tolterodine Tartrate [Detrol LA] 4 mg PO DAILY 08/12/17 08/12/17 History Allergies Allergy/AdvReac Type Severity Reaction Status Date / Time aspirin Allergy Anaphylaxis Verified 08/12/17 13:41 NSAIDS (Non-Steroidal Allergy Anaphylaxis,ADDISON Verified 08/12/17 13:41 Anti-Inflamma -PARTHA SYNDROME paper tape Allergy welt Uncoded 08/12/17 12:51 Surgical - Exam Vital Signs Temp Pulse Resp BP Pulse Ox 98.6 F 93 22 204/95 93 L 08/12/17 12:44 08/12/17 12:44 08/12/17 12:44 08/12/17 12:44 08/12/17 12:44 - General well developed, no distress, obese - Neck no lymphadectomy - Respiratory normal respiratory effort - Abdomen Abdomen: soft, non tender, no organomegaly, no masses - Neurologic no memory loss - Psychiatric memory intact Results - Labs 08/13/17 05:27 08/13/17 05:27 Abnormal Lab Results - Last 24 Hours (Table) 08/12/17 08/12/17 08/12/17 Range/Units 22:51 23:03 23:03 WBC 1.0 L* (3.8-10.6) k/uL RBC (3.80-5.40) m/uL Hgb (11.4-16.0) gm/dL Hct (34.0-46.0) % MCHC 30.8 L (31.0-37.0) g/dL Neutrophils # (Manual) (1.3-7.7) k/uL Lymphocytes # (Manual) (1.0-4.8) k/uL Myelocytes # (Manual) (0) k/uL Potassium (3.5-5.1) mmol/L BUN 20 H (7-17) mg/dL Creatinine 1.10 H (0.52-1.04) mg/dL Glucose (74-99) mg/dL POC Glucose (mg/dL) 100 H (75-99) mg/dL Plasma Lactic Acid Dennis (0.7-2.0) mmol/L Calcium (8.4-10.2) mg/dL Phosphorus 4.8 H (2.5-4.5) mg/dL Magnesium 1.3 L (1.6-2.3) mg/dL Urine Appearance (Clear) Urine Protein (Negative) Urine Blood (Negative) Ur Leukocyte Esterase (Negative) Urine RBC (0-5) /hpf Urine WBC (0-5) /hpf Urine WBC Clumps (None) /hpf Amorphous Sediment (None) /hpf Urine Bacteria (None) /hpf Hyaline Casts (0-2) /lpf Urine Mucus (None) /hpf 08/12/17 08/13/17 08/13/17 Range/Units 23:03 05:27 05:27 WBC 10.8 H (3.8-10.6) k/uL RBC 3.59 L (3.80-5.40) m/uL Hgb 10.5 L (11.4-16.0) gm/dL Hct 33.8 L (34.0-46.0) % MCHC (31.0-37.0) g/dL Neutrophils # (Manual) 9.60 H (1.3-7.7) k/uL Lymphocytes # (Manual) 0.97 L (1.0-4.8) k/uL Myelocytes # (Manual) 0.11 H (0) k/uL Potassium 3.3 L (3.5-5.1) mmol/L BUN 26 H (7-17) mg/dL Creatinine 1.43 H (0.52-1.04) mg/dL Glucose 108 H (74-99) mg/dL POC Glucose (mg/dL) (75-99) mg/dL Plasma Lactic Acid Dennis 3.1 H* (0.7-2.0) mmol/L Calcium 8.0 L (8.4-10.2) mg/dL Phosphorus (2.5-4.5) mg/dL Magnesium 1.3 L (1.6-2.3) mg/dL Urine Appearance (Clear) Urine Protein (Negative) Urine Blood (Negative) Ur Leukocyte Esterase (Negative) Urine RBC (0-5) /hpf Urine WBC (0-5) /hpf Urine WBC Clumps (None) /hpf Amorphous Sediment (None) /hpf Urine Bacteria (None) /hpf Hyaline Casts (0-2) /lpf Urine Mucus (None) /hpf 08/13/17 Range/Units 08:00 WBC (3.8-10.6) k/uL RBC (3.80-5.40) m/uL Hgb (11.4-16.0) gm/dL Hct (34.0-46.0) % MCHC (31.0-37.0) g/dL Neutrophils # (Manual) (1.3-7.7) k/uL Lymphocytes # (Manual) (1.0-4.8) k/uL Myelocytes # (Manual) (0) k/uL Potassium (3.5-5.1) mmol/L BUN (7-17) mg/dL Creatinine (0.52-1.04) mg/dL Glucose (74-99) mg/dL POC Glucose (mg/dL) (75-99) mg/dL Plasma Lactic Acid Dennis (0.7-2.0) mmol/L Calcium (8.4-10.2) mg/dL Phosphorus (2.5-4.5) mg/dL Magnesium (1.6-2.3) mg/dL Urine Appearance Cloudy H (Clear) Urine Protein 2+ H (Negative) Urine Blood Small H (Negative) Ur Leukocyte Esterase Large H (Negative) Urine RBC 26 H (0-5) /hpf Urine WBC 174 H (0-5) /hpf Urine WBC Clumps Occasional H (None) /hpf Amorphous Sediment Occasional H (None) /hpf Urine Bacteria Rare H (None) /hpf Hyaline Casts 9 H (0-2) /lpf Urine Mucus Rare H (None) /hpf Microbiology - Last 24 Hours (Table) 08/12/17 14:34 Blood Culture Gram Stain - Preliminary Blood Blood Culture - Preliminary Gram Neg Bacilli 08/12/17 14:34 Blood Culture - Final Blood 08/12/17 12:57 Urine Culture - Preliminary Urine,Voided Diabetes panel 08/12/17 08/13/17 Range/Units 23:03 05:27 Sodium 140 139 (137-145) mmol/L Potassium 4.5 3.3 L (3.5-5.1) mmol/L Chloride 102 106 (98-107) mmol/L Carbon Dioxide 27 25 (22-30) mmol/L BUN 20 H 26 H (7-17) mg/dL Creatinine 1.10 H 1.43 H (0.52-1.04) mg/dL Glucose 96 108 H (74-99) mg/dL Calcium 8.5 8.0 L (8.4-10.2) mg/dL Calcium panel 08/12/17 08/13/17 Range/Units 23:03 05:27 Calcium 8.5 8.0 L (8.4-10.2) mg/dL Phosphorus 4.8 H 2.9 (2.5-4.5) mg/dL Pituitary panel 08/12/17 08/13/17 Range/Units 23:03 05:27 Sodium 140 139 (137-145) mmol/L Potassium 4.5 3.3 L (3.5-5.1) mmol/L Chloride 102 106 (98-107) mmol/L Carbon Dioxide 27 25 (22-30) mmol/L BUN 20 H 26 H (7-17) mg/dL Creatinine 1.10 H 1.43 H (0.52-1.04) mg/dL Glucose 96 108 H (74-99) mg/dL Calcium 8.5 8.0 L (8.4-10.2) mg/dL Adrenal panel 08/12/17 08/13/17 Range/Units 23:03 05:27 Sodium 140 139 (137-145) mmol/L Potassium 4.5 3.3 L (3.5-5.1) mmol/L Chloride 102 106 (98-107) mmol/L Carbon Dioxide 27 25 (22-30) mmol/L BUN 20 H 26 H (7-17) mg/dL Creatinine 1.10 H 1.43 H (0.52-1.04) mg/dL Glucose 96 108 H (74-99) mg/dL Calcium 8.5 8.0 L (8.4-10.2) mg/dL Assessment and Plan (1) Pyelonephritis Narrative/Plan: The patient appears to have acute right pyelonephritis which is complicated by a 5 x 7 mm calculus located in the mid right ureter. It appears to be in the same location that a calculus became impacted in February 2017. The patient has improved proved clinically with a change in her antibiotics from Unasyn to meropenem and IV fluids. I believe that placement of a right double-J catheter should be performed however as this will allow better urine drainage from the right kidney and better antibiotic penetration into the kidney. Unfortunately the patient had lunch only a few hours ago and because of that I believe that the procedure should be deferred until tomorrow morning. Current Visit: Yes Status: Acute Code(s): N12 - TUBULO-INTERSTITIAL NEPHRITIS, NOT SPCF ACUTE OR CHRONIC SNOMED Code(s): 59965457
[2017-08-13] MEDS: HYDROcodone/APAP 10-325MG 1 EACH TAB PO PRN (17:28)
--- NOTE | 2017-08-13 17:58 | PN ---
PROGRESS NOTE DATE OF SERVICE: 08/13/2017 This 71-year-old woman with a past medical history of multiple medical problems was admitted with pyelonephritis and features of sepsis. The patient had urolithiasis and history of lithotripsy. The patient was started on IV antibiotics. Subsequently patient developed hypotension and transferred to ICU. The patient is currently on 25 mcg of Levophed at this time. Abdominal pelvis CAT scan showed probable passage of the 7 mm right renal calculi at the proximal ureter causing obstructive mild right-sided hydronephrosis. Dr. Banda has seen the patient and recommended right double-J catheter placement for better drainage. Patient closely monitored in the ICU. PAST MEDICAL HISTORY: Past medical reviewed. Please note the patient is currently on meropenem and IV fluids. REVIEW OF SYSTEMS: CARDIOVASCULAR: No angina. Respiratory: As mentioned earlier. GI: As mentioned earlier. no nausea or vomiting. is no dysuria. Central nervous system: No focal deficits. CURRENT MEDICATIONS ARE: Reviewed and include: 1. Tylenol 650 q.6 p.r.n. 2. [place] 10 mg t.i.d. p.r.n. 3. DuoNeb q.i.d. and p.r.n. 4. Xanax 0.5 t.i.d. 5. Lipitor 40 mg q.h.s. 6. Coreg 12.5 mg b.i.d. 7. Plavix 75 mg. 8. Heparin subcu. 9. Zestril 20 mg daily, which is on hold. 10.Coreg is also on hold. 11.Magnesium sulfate. 12.Meropenem 1 g IV b.i.d. 13.Narcan. 14.Habitrol 14 daily. 15.Levophed drip. 16.Ditropan XL 5 mg p.o. daily. 17.Restoril. PHYSICAL EXAM: Patient is alert, oriented times three. Pulse is 77, blood pressure is 84/48, respiration 20, temp is normal. Pulse ox 97% on 5 L. HEENT: Conjunctivae normal. Oral mucosa moist. Neck is no jugular venous distention. No carotid bruit. No lymph node enlargement. Cardiovascular: S1, S2 muffled. Respirations: Breath sounds diminished in the bases. A few scattered rhonchi and crackles. ABDOMEN: Soft, nontender. No mass palpable. Legs no edema and no swelling. NERVOUS SYSTEM: Higher functions as mentioned. Moves all four extremities. Lymphatics: No lymph nodes palpable in the neck, axillae or groin. Skin no ulcer, rashes or bleeding. LAB STUDIES: WBC 10.8, hemoglobin is 10.5, potassium 3.2, creatinine is 1.43. Lactic acid 1.7. UA noted. The urine culture showed gram-negative bacilli. ASSESSMENT: 1. Acute right pyelonephritis with possible sepsis. 2. Urolithiasis. 3. History of asthma, chronic obstructive pulmonary disease. 4. Gastroesophageal reflux disease. 5. Hard of hearing. 6. Myocardial infarction history. 7. History of coronary artery disease. 8. History of degenerative joint disease. 9. history ESBL E coli. 10.Obesity with body mass of 37. 11.Mild acute renal failure possibly prerenal failure. 12.Hypomagnesemia. 13.FULL CODE. RECOMMENDATIONS AND DISCUSSION: Continue current medications, management and symptomatic treatment. Otherwise at this time I would recommend to continue with current medications. Continue with antibiotic and continue meropenem. Monitor creatinine closely. We will follow the cultures and magnesium has been replaced. Otherwise closely follow with Infectious Disease and multiple other consultants. Further recommendations to follow. Prognosis guarded. Discussed with the patient. MMODL / IJN: [id number] /
[2017-08-13] MEDS: ATORVASTATIN 40 MG TAB PO SCH (20:23)
[2017-08-13] MEDS: MEROPENEM 1 GM in SODIUM CHLORIDE 0.9% 100 ML IVPB SCH (20:23)
[2017-08-14] MEDS: SODIUM CHLORIDE 0.9% 1,000 ML IV SCH ×2 (00:56→17:32)
[2017-08-14] MEDS: MORPHINE SULFATE 5 MG/ML SYRINGE IV PRN ×2 (02:01→17:31)
[2017-08-14] MEDS: NOREPINEPHRIN 16 MG-0.9%NS PMX 16 MG/250 ML ML IV SCH (02:16)
[2017-08-14 05:29] LABS: Basophils % (A) 0 %; Eosinophils # (A) 0.1 k/uL (0-0.7); Eosinophils % (A) 0 %; HGB 9.8 gm/dL (11.4-16.0); Hypochromasia Slight; Lymphocytes # (A) 1.5 k/uL (1.0-4.8); Lymphocytes % (A) 10 %; MCH 29.2 pg (25.0-35.0); MCHC 30.5 g/dL (31.0-37.0); MCV 95.8 fL (80.0-100.0); Mean Platelet Volume 6.7; Monocytes # (A) 0.5 k/uL (0-1.0); Monocytes % (A) 3 %; Neutrophils # (A) 13.5 k/uL (1.3-7.7); Neutrophils % (A) 85 %; Platelet Count 161 k/uL (150-450); RBC 3.35 m/uL (3.80-5.40); RDW 14.8 % (11.5-15.5); WBC 15.9 k/uL (3.8-10.6)
[2017-08-14 05:43] LABS: Calcium 7.8 mg/dL (8.4-10.2); Phosphorus 3.1 mg/dL (2.5-4.5); Potassium 4.2 mmol/L (3.5-5.1)
--- NOTE | 2017-08-14 07:12 | XR ---
EXAMINATION TYPE: XR chest 1V DATE OF EXAM: 08/14/2017 HISTORY: shortness of breath. REFERENCE: Previous study dated 08/13/2017. FINDINGS: Bilateral shoulder prostheses are in place. There is a left subclavian catheter in place. I ts tip is in the superior vena cava. There is left basilar airspace disease. Heart size is upper limits of normal. There is blunting of th e left CP angle. I could not exclude a small effusion. IMPRESSION: 1. BORDERLINE CARDIOMEGALY. 2. WORSENING LEFT BASILAR INFILTRATE. 3. I COULD NOT EXCLUDE A SMALL LEFT EFFUSION.
[2017-08-14] MEDS: IPRATROPIUM-ALBUTEROL 3 ML NEB INHALATION SCH ×4 (07:19→20:19)
--- NOTE | 2017-08-14 08:29 | CONS ---
CONSULTATION DATE OF SERVICE: 08/13/2017. REASON FOR CONSULTATION: Gram-negative bacteremia sepsis. HISTORY OF PRESENT ILLNESS: The patient is a 71-year-old female with a past medical history significant for recurrent UTI. Did have a episode of a ESBL UTI in the past, presenting to the ER with chief complaints of breathing very weak, fatigued along with shaking chills and pain in the right flank area. Patient's symptoms started yesterday. Pain described to be dull aching, at times colicky with some radiation to the right groin with intensity about 7 to 8 out of 10. The patient did have some associated nausea but no vomiting. Denies having any chest pain or shortness of breath or cough. Some lower abdominal pain. Denies any burning or frequency of urine. With these symptoms , the patient did present to the ER where the patient has been evaluated by the ER physician. On arrival to the ER, the patient was afebrile, subsequently did spike a fever of 100.3- 100.6. The patient did have evidence of hypotension with systolic 60 to 70s requiring multiple fluid boluses and the patient was admitted to the ICU. The patient also was leukopenic with a white count of 1000. The patient did have significantly positive UA. She was started on Unasyn with blood culture coming positive with gram-negative bacilli. Hence, ID was consulted for further recommendation regarding antibiotic therapy. The patient also had a CT abdominal and pelvis completed which did show a 7 mm calculus in the proximal right ureter causing mild right-sided hydronephrosis and possible hydroureter. ID was consulted for further recommendation regarding antibiotic therapy. REVIEW OF SYSTEMS: Constitutional: Positive for weakness and fever. Eyes no complaint. ENT no complaint. Respiratory no complaint. Cardiovascular no complaint. Genitourinary as per HPI. Gastrointestinal: As per HPI. Musculoskeletal no complaint. Integumentary: no complaint. PSYCHOLOGICAL: No complaint. Endocrine no complaint. Neurologic no complaint. PAST MEDICAL HISTORY: Significant for COPD, gastroesophageal reflux disease, myocardial infarction, osteoarthritis, asthma, COPD, nephrolithiasis, ESBL E. coli urinary tract infection. PAST SURGICAL HISTORY: Bilateral shoulder replacement, left knee replacement and gastric bypass surgery , lithotripsy and heart catheterization. SOCIAL HISTORY: Current everyday smoker. Patient drinks. No drug use. FAMILY HISTORY: Sister with a history of pulmonary embolism. Father history of liver cancer. ALLERGIES: ASPIRIN. MEDICATION: Medications include the patient currently on: 1. Tylenol. 2. [place]. 3. DuoNeb. 4. Xanax. 5. Lipitor. 6. Coreg. 7. Plavix. 8. Heparin. 9. Zestril. 10.Meropenem 1 g q.8h. 11.She is on 1 Narcan. 12.Nicotine patch. 13.Levophed. 14.Zofran. 15.Ditropan XL. 16.Protonix. 17.Restoril. EXAMINATION: Blood pressure is 110/55 with a pulse of 75, temperature 97.9. She is 95% on 4 L nasal cannula. General description is an elderly female up in the bed, in no distress. No tachypnea or accessory muscles of respiration use. HEENT: Shows slight pallor. No scleral icterus. Oral mucosa membranes dry. No pharyngeal erythema or thrush Neck trachea central. No thyromegaly. Lungs unlabored breathing. Clear to auscultation anteriorly. Heart S1, S2. Regular rate and rhythm. No normal ABDOMEN: Soft, minimally tender in the right flank area. No guarding. No rigidity. No organomegaly. EXTREMITIES: No edema of the feet. Skin examination: No rash or mass palpable. Neurological: Patient is awake, alert, oriented x2. Mood and affect normal. LABS: Hemoglobin is 10.5, white count 10.8, white count stable at 1.0 with a BUN of 26 , creatinine is 1.43. Troponin slightly elevated. Urine has been positive, cloudy with large leukocyte esterases and many WBC. Blood culture with gram-negative bacilli. DIAGNOSTIC IMPRESSION AND PLAN: Patient with gram-negative sepsis in a patient who did have a fever of 100.6, significant hypotension with systolic around 60-70, requiring fluid boluses and pressor support, leukopenia meeting criteria for SIRS. Source is urinary in a patient who do have a complicated UTI with right-sided hydronephrosis from a proximal ureteral stone. The patient did have a previous history of ESBL E coli UTI, would be resistant pathogen. PLAN: 1. Unasyn was discontinued. 2. Meropenem has been added 1 g IVPB every 8 hours. 3. Aggressive IV fluid and urology evaluation for possible stenting of the right ureter for relief of the obstruction. 4. We will follow up on clinical condition as well as cultures to further adjust medication if needed. Thank you for this consultation. We will follow the patient along with you. MMMATHEUSL / JENNIFERN: [id number] / SANDOVAL
[2017-08-14] MEDS: MEROPENEM 1 GM in SODIUM CHLORIDE 0.9% 100 ML IVPB SCH ×2 (09:01→20:10)
[2017-08-14] MEDS: NICOTINE 14MG/24HR PATCH TRANSDERM SCH (09:01)
[2017-08-14] MEDS: HEPARIN SODIUM,PORCINE 5,000 UNIT/ML 1 ML VIAL SQ SCH ×2 (09:02→20:10)
[2017-08-14] MEDS ORDERED: MIDAZOLAM 2 MG/2 ML VIAL ONE (09:25)
[2017-08-14] MEDS ORDERED: KETAMINE 10 MG/ML 20 ML VIAL ONE (09:25)
[2017-08-14] MEDS ORDERED: fentaNYL (PF) 50 MCG/ML 2 ML AMP ONE (09:25)
[2017-08-14] MEDS ORDERED: PROPOFOL 10 MG/ML 20 ML VIAL IV ONE (09:25)
[2017-08-14] MEDS ORDERED: SODIUM CHLORIDE 0.9% 1,000 ML IV ONE (09:25)
[2017-08-14] MEDS ORDERED: LIDOCAINE 1% INJ 10MG/ML (20 ML MDV) ONE (09:25)
--- NOTE | 2017-08-14 09:30 | P.PN ---
Subjective Progress Note Date: 08/14/17 71 yo Old female patient with known history of kidney stones and recurrent urine tract infections. The patient came in through the emergency department yesterday because of shaking chills and feeling very weak and fatigued. For that reason she came into the hospital. She was having also on and off pain along the right flank area radiating to the right lower abdominal and the patient was concern of a recurrent urine tract infection knowing that she has had frequent UTIs in the past most recent of which was around 2 weeks ago for which she was given Macrobid on outpatient basis. Note that the patient has had previous CAT scan that was evaluated and seen by Dr. Alfaro. The patient had a 7 mm proximal ureteral calculus and another 1.2 cm lower pole right renal calculus. She has passed stone in the past. The last KUB that was done on showed a 3 mm distal UVJ calculus. She was having micro-hematuria. She underwent ESWL for the large stone in the right kidney on 04/26/2017. She was initially seen in the emergency department following that she was admitted to the medical floor. She was started on IV Unasyn. Subsequently she became hypotensive with her systolic blood pressure dropped down to the low 70s. She was given a total of 3 L and she remained hypotensive and following that she was started on pressors. Currently she is on 25 mics of levo fed which is running through a peripheral line in the right upper extremity. Also she is having some iron of CVA angle tenderness in the right flank area. The patient denies having any hematuria. Denies having any recent cloudiness in her urine. Her white cell count was suppressed initially with a white cell count of 1.0 and subsequently her white cell count came up to 10.8. She has 15 % bandemia. Her renal function is also abnormal and she has an acute kidney injury. She presents to the kidney function with a creatinine of 0.7 and her current creatinine is up to 1.4. She was started on IV Unasyn and this was later on switched to Merrem due to concerns of ESBL producing E. coli. She has been apparently infected by ESBL producing organisms in the past. A KUB was done in the emergency department that showed a 1 cm right renal stone in the inferior pole of the right kidney overlying the right iliac crest. The chest x- ray showed no acute abnormalities and there is evidence of mild pulmonary vascular congestion compared to yesterday's chest x-ray. She is known to have COPD. She is known to have recurrent urine checked infection and nephrolithiasis. On 08/14/2017, the patient is being seen in follow-up. She has done extremely well as the patient got resuscitated IV fluids and the patient got treated with antibiotics and pressors. Levo fed was actually weaned off and discontinued and currently she is off pressors. She was taken off pressors 6 AM this morning. No fever. No chills. She is still having some right flank pain. The CAT scan of the abdomen and pelvis was obtained yesterday and showed interval passage of a 7 mm right renal stone which was now plugging the proximal ureter and causing obstruction with right kidney hydronephrosis. The blood cultures positive for gram-negative bacilli. The patient be taken to the operating room today for insertion of double-J stent and possibly removal of the ureteral stone. This will be done by Dr. Enrique. She is awake and alert. She is afebrile for now. She is nothing by mouth for surgery. Objective - Vital Signs Vital signs: Vital Signs Temp 98.3 F 08/14/17 08:30 Pulse 102 H 08/14/17 09:00 Resp 19 08/14/17 09:00 BP 118/60 08/14/17 09:00 Pulse Ox 92 L 08/14/17 09:00 Intake & Output 08/13/17 08/14/17 08/14/17 18:59 06:59 18:59 Intake Total 3562.503 1774.080 325 Output Total 657 1465 275 Balance 2905.503 309.080 50 Weight 108 kg 110 kg 110 kg Intake: IV 3425 1650 Magnesium Sulfate-D5w Pmx 100 1 gm In Dextrose/Water 1 100ml.bag @ 100 mls/hr IVPB Q1H [facility] Rx#: [id number] Sodium Chloride 0.9% 1, 1000 000 ml @ 50 mls/hr IV . Q20H [facility] Rx#:[id number] Sodium Chloride 0.9% 1, 1000 000 ml @ 999 mls/hr IV . Q1H1M ONE Rx#:[id number] Sodium Chloride 0.9% 500 1325 1650 ml @ 125 mls/hr IV .Q4H ONE Rx#:[id number] Intake, IV Titration 137.503 124.080 325 Amount Meropenem 1 gm In Sodium 100 Chloride 0.9% 100 ml @ 200 mls/hr IVPB Q12HR [facility] Rx#:[id number] Norepinephrin 16 mg-0.9% 137.503 124.080 Ns Pmx 16 mg In 250 ml @ Titrate IV .Q0M [facility] Rx#: [id number] Sodium Chloride 0.9% 1, 225 000 ml @ 150 mls/hr IV . Q6H40M [facility] Rx#:[id number] Output: Urine 657 1465 275 Other: Voiding Method Indwelling Catheter Indwelling Catheter Indwelling Catheter # Voids 3 - Exam The patient appeared well nourished and normally developed. Vital signs as documented. Head exam is unremarkable. No scleral icterus or corneal arcus noted. Neck is without jugular venous distension, thyromegaly, or carotid bruits. Carotid upstrokes are brisk bilaterally. Lungs are diminished breath sounds bilaterally along with some scattered expiratory wheezes secondary to her underlying COPD.. Cardiac exam reveals the PMI to be normally sized and situated. Rhythm is regular. First and second heart sounds normal. No murmurs, rubs or gallops. Abdominal exam reveals normal bowel sounds, no masses, no organomegaly and no aortic enlargement. He has a right CVA angle tenderness. Extremities are nonedematous and both femoral and pedal pulses are normal.Examination of the skin revealed no evidence of significant rashes, suspicious appearing nevi or other concerning lesions. Neurologically patient is awake and alert and she is moving all 4 extremities. - Labs CBC & Chem 7: 08/14/17 04:38 08/14/17 04:38 Labs: Abnormal Lab Results - Last 24 Hours (Table) 08/13/17 08/14/17 08/14/17 Range/Units 19:40 04:38 04:38 WBC 15.9 H (3.8-10.6) k/uL RBC 3.35 L (3.80-5.40) m/uL Hgb 9.8 L (11.4-16.0) gm/dL Hct 32.0 L (34.0-46.0) % MCHC 30.5 L (31.0-37.0) g/dL Neutrophils # 13.5 H (1.3-7.7) k/uL Chloride 110 H (98-107) mmol/L BUN 26 H (7-17) mg/dL Creatinine 1.10 H (0.52-1.04) mg/dL Calcium 7.8 L (8.4-10.2) mg/dL Troponin I 0.080 H* (0.000-0.034) ng/mL Microbiology - Last 24 Hours (Table) 08/13/17 20:00 Gram Stain - Preliminary Sputum Sputum Culture - Preliminary 08/12/17 12:57 Urine Culture - Preliminary Urine,Voided Gram Neg Bacilli 08/13/17 08:00 Urine Culture - Preliminary Urine,Catheterized 08/12/17 14:34 Blood Culture Gram Stain - Preliminary Blood Blood Culture - Preliminary Gram Neg Bacilli 08/12/17 14:34 Blood Culture - Final Blood Assessment and Plan Plan: 1 septic shock secondary to a urine tract infection/complicated UTI with possible pyelonephritis involving the right kidney. Rule out a complicated urine checked infection knowing that the patient has history of nephrolithiasis and kidney stones as discussed earlier. Underlying obstructive uropathy needs to be considered in association with kidney stones. On 08/14/2017 the patient is diagnosed having gram-negative septicemia secondary to a complicated urinary tract infection/pyelonephritis. The patient also has a 7 mm ureteral stone causing right-sided hydronephrosis. The patient will be taken to the operating room for cystoscopy, double-J stent insertion and removal of the ureteral stone. Meanwhile, the patient was aggressively resuscitated IV fluids. The patient is currently off pressors. Hemodynamically stable. Currently on IV normal saline at 1 50 mL an hour and antibiotic coverage is with Merrem. 2 nephrolithiasis previous history of right kidney and ureteral stones, status post shockwave lithotripsy and the patient has history of recurrent urinary tract infection 3 previous history of gram-negative/E. coli UTI with possibly an ESBL producing organism 4 acute kidney injury, improving 5 COPD/asthma 6 coronary artery disease previous MT 7 degenerative arthritis Plan Continue same antibiotic coverage. Awaiting final cultures. The patient will be taken to the operating room. If still hemodynamically stable the fluids will be kept down to 75 mL an hour. She'll be brought back to the ICU. We'll continue to follow. Urology on the case. The patient has an adequate urine output. Renal function is also improving.
--- NOTE | 2017-08-14 10:01 | P.OP ---
Date of Procedure: 08/14/17 Preoperative Diagnosis: Acute right pyelonephritis with sepsis complicated by obstructive mid right ureteral calculus Postoperative Diagnosis: Acute right pyelonephritis with sepsis complicated by obstructive mid right ureteral calculus Procedure(s) Performed: Cystoscopy with placement of right double-J catheter Anesthesia: MAC Estimated Blood Loss (ml): 0 Pathology: none sent Condition: stable Disposition: ICU Indications for Procedure: The patient is a 71-year-old female admitted on 06/12 with right flank pain and evidence of a urinary tract infection. She became hypotensive and a computed tomography scan identified right hydronephrosis secondary to an obstructive calculus in the mid right ureter measuring approximately 4 x 6 mm in size. The patient has been stabilized hemodynamically. Cystoscopy with placement of a right double-J catheters planned to improve drainage from the kidney and antibiotic penetration into the kidney. Description of Procedure: The patient was taken the operating suite where adequate intravenous sedation was given. The patient was placed in the dorsal lithotomy position with her legs suspended from padded Blake stirrups. Pneumatic compression stockings were applied to the lower legs. The patient's Vasquez catheter was removed. The genitalia was prepped with Betadine solution and draped in a sterile fashion. The external genitalia and urethral meatus were unremarkable. The 22 Lao cystoscope sheath with 30 lens was passed through the urethra and into the bladder. Both ureteral orifices were of normal location. The bladder was free of tumor, foreign body and diverticulum. A straight 0.0350 Zip wire was advanced through the right ureteral orifice and under fluoroscopic monitoring the Glidewire was advanced beyond the calculus and into the region of the right renal pelvis. A 6-Lao by 24 cm double-J catheter was then advanced over the Glidewire and positioned so that the proximal end coiled in the renal pelvis and the distal end coiled in the bladder. The bladder was drained and the cystoscope was withdrawn. The patient tolerated procedure well and left the operative room awake and in satisfactory condition.
--- NOTE | 2017-08-14 10:14 | PCN ---
PROCEDURE NOTE DATE OF SERVICE: 08/13/2017. SITE OF INSERTION: Left subclavian vein. PREOP DIAGNOSIS: Septic shock. POSTOP DIAGNOSIS: Septic shock. TRIPLE LUMEN CATHETER PLACEMENT: Indication Hemodynamic monitoring/Intravenous access. A time-out was completed verifying correct patient, procedure, site, positioning, and implant(s) or special equipment if applicable. The patient was placed in a dependent position appropriate for triple lumen catheter placement based on the vein to be cannulated. The patient's left shoulder was prepped and draped in sterile fashion. 1% Lidocaine was used to anesthetize the surrounding skin area. A triple lumen 9F Cordis catheter was introduced into the left subclavian vein using Seldinger technique. The catheter was threaded smoothly over the guide wire and appropriate blood return was obtained. Each lumen of the catheter was evacuated of air and flushed with sterile saline. The catheter was then sutured in place to the skin and a sterile dressing applied. Perfusion to the extremity distal to the point of catheter insertion was checked and found to be adequate. No complications. No pneumothorax. MMODL / IJN: [id number] /
[2017-08-14] MEDS: CLOPIDOGREL 75 MG TAB PO SCH (10:24)
[2017-08-14] MEDS: PANTOPRAZOLE 40 MG TABLET PO SCH (10:24)
[2017-08-14] MEDS: OXYBUTYNIN XL 5 MG TAB.ER.24 PO SCH (10:25)
--- NOTE | 2017-08-14 10:33 | FL ---
FLUOROSCOPY 8 seconds of fluoroscopy time were utilized during right ureteral stent placement. 1 images document the procedure.
[2017-08-14] MEDS: CARVEDILOL 12.5 MG TAB PO SCH ×2 (13:24→17:32)
[2017-08-14] MEDS: LISINOPRIL 20 MG TAB PO SCH (13:24)
--- NOTE | 2017-08-14 19:41 | PN ---
PROGRESS NOTE DATE OF SERVICE: 08/14/2017 This 71-year-old woman who was admitted with acute right pyelonephritis also had urolithiasis. The patient had an ESBL E. coli grown from the culture. Infectious Disease is following the patient closely. The patient is currently on meropenem 1 g IV t.i.d. per Infectious Disease. The patient was also seen by Urology, who performed cystoscopy with placement of a right JJ catheter for obstructive mild right ureteral calculus. Patient being closely monitored in the ICU at this time. Patient is supported. PAST MEDICAL HISTORY: Reviewed. REVIEW OF SYSTEMS: CARDIOVASCULAR: No palpitations. RESPIRATORY: As mentioned earlier. GI: As mentioned earlier. : As mentioned earlier. NERVOUS: Diffusely weak. CURRENT MEDICATIONS: Reviewed, include: 1. Tylenol 650 every 6 hours p.r.n. 2. Pickens 10 mg t.i.d. p.r.n. 3. DuoNeb q.i.d. and p.r.n. 4. Xanax 0.5 t.i.d. p.r.n. 5. Lipitor 40 mg q.h.s. 6. Coreg 12.5 mg p.o. b.i.d. 7. Plavix 75 mg p.o. daily. 8. Heparin 5 subcu b.i.d. 9. Zestril 20 mg p.o. daily, hold. 10.Meropenem 1 g b.i.d. 11.Supplementation with p.r.n. medication. 12.Habitrol 14 daily. 13.Zofran 4 mg q.8h p.r.n. 14.Protonix. 15.Restoril. PHYSICAL EXAM: Patient is alert, oriented x3. Pulse 81, blood pressure 102/53, respiration 23, temperature 98.2, pulse ox 98% on 4L. HEENT: Conjunctivae normal. Oral mucosa moist. NECK: No jugular venous distention. No carotid bruits. No lymph node enlargement. CARDIOVASCULAR: S1, S2 muffled. RESPIRATORY: Breath sounds diminished in the bases. A few scattered rhonchi and crackles. ABDOMEN: Soft, nontender. No mass palpable. LEGS: No edema. No swelling. NERVOUS SYSTEM: Higher functions as mentioned earlier, moves all 4 limbs. No focal motor or sensory deficits. LYMPHATIC: No lymphadenopathy in neck or axillae. SKIN: No ulcer, rash or bleeding. LABS: WBC 15.9, hemoglobin 9.8. Sodium 140, potassium 4.2. Troponin 0.080. The culture showed E. coli from the blood and urine. The blood is ESBL. ASSESSMENT: 1. Acute right pyelonephritis with possible sepsis with Escherichia coli extended- spectrum beta lactamase. 2. Urolithiasis, status post JJ catheter on the right. 3. History of asthma, chronic obstructive pulmonary disease. 4. History of gastroesophageal reflux disease. 5. Hard of hearing. 6. History of myocardial infarction history. 7. History of coronary artery disease. 8. History of degenerative joint disease. 9. History of extended-spectrum beta lactamase Escherichia coli. 10.Obesity with body mass index of 37. 11.Mild acute renal failure possibly prerenal failure. 12.Hypomagnesemia. 13.FULL CODE. RECOMMENDATIONS AND DISCUSSION: In this 71-year-old woman who presented with multiple complex medical issues, will monitor the patient closely. Continue with the current medical management and current symptomatic treatment. Continue the broad-spectrum IV antibiotics. The white count is still elevated. We will continue to monitor, continue the pressor support, continue IV fluids. Otherwise, prognosis guarded because of multiple complex medical issues. Further recommendations to follow. See orders for further details. MMODL / IJN: [id number] /
[2017-08-14] MEDS: ATORVASTATIN 40 MG TAB PO SCH (20:10)
[2017-08-15] MEDS: MORPHINE SULFATE 5 MG/ML SYRINGE IV PRN ×3 (01:37→22:14)
[2017-08-15 05:05] LABS: Basophils % (A) 0 %; Eosinophils # (A) 0.1 k/uL (0-0.7); Eosinophils % (A) 1 %; HCT 30.5 % (34.0-46.0); HGB 9.4 gm/dL (11.4-16.0); Hypochromasia Moderate; Lymphocytes # (A) 1.3 k/uL (1.0-4.8); Lymphocytes % (A) 13 %; MCH 29.2 pg (25.0-35.0); MCHC 30.6 g/dL (31.0-37.0); MCV 95.3 fL (80.0-100.0); Mean Platelet Volume 7.3; Monocytes # (A) 0.4 k/uL (0-1.0); Monocytes % (A) 4 %; Neutrophils # (A) 8.5 k/uL (1.3-7.7); Neutrophils % (A) 81 %; Platelet Count 139 k/uL (150-450); RBC 3.21 m/uL (3.80-5.40); RDW 15.8 % (11.5-15.5); WBC 10.5 k/uL (3.8-10.6)
[2017-08-15] MEDS: SODIUM CHLORIDE 0.9% 1,000 ML IV SCH ×3 (05:13→13:07)
[2017-08-15 05:15] LABS: Anion Gap 5 mmol/L; Blood Urea Nitrogen 13 mg/dL (7-17); Calcium 8.2 mg/dL (8.4-10.2); Carbon Dioxide 27 mmol/L (22-30); Chloride 109 mmol/L (98-107); Glucose 88 mg/dL (74-99); Magnesium 1.9 mg/dL (1.6-2.3); Phosphorus 2.4 mg/dL (2.5-4.5); Potassium 4.4 mmol/L (3.5-5.1); Sodium 141 mmol/L (137-145)
--- NOTE | 2017-08-15 06:41 | XR ---
EXAMINATION TYPE: XR chest 1V DATE OF EXAM: 08/15/2017 HISTORY: shortness of breath. REFERENCE: Previous study dated 08/14/2017. 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 Heart is mildly enlarged. There is left basilar airspace disease. There is a small left effusion. The overall appearance is unchanged. IMPRESSION: NO SIGNIFICANT INTERVAL CHANGE IN APPEARANCE OF THE CHEST.
[2017-08-15] MEDS: CARVEDILOL 12.5 MG TAB PO SCH ×2 (08:29→17:18)
[2017-08-15] MEDS: IPRATROPIUM-ALBUTEROL 3 ML NEB INHALATION SCH ×4 (08:47→19:54)
[2017-08-15] MEDS: CLOPIDOGREL 75 MG TAB PO SCH (08:49)
[2017-08-15] MEDS: PANTOPRAZOLE 40 MG TABLET PO SCH (08:49)
[2017-08-15] MEDS: NICOTINE 14MG/24HR PATCH TRANSDERM SCH (08:49)
[2017-08-15] MEDS: OXYBUTYNIN XL 5 MG TAB.ER.24 PO SCH (08:49)
[2017-08-15] MEDS: HEPARIN SODIUM,PORCINE 5,000 UNIT/ML 1 ML VIAL SQ SCH ×2 (08:49→20:48)
[2017-08-15] MEDS: LISINOPRIL 20 MG TAB PO SCH (08:49)
--- NOTE | 2017-08-15 08:53 | PN ---
PROGRESS NOTE DATE OF SERVICE: 08/14/2017. REASON FOR FOLLOWUP: ESBL E coli bacteremia secondary to urinary source. INTERVAL HISTORY: The patient was taken to the OR. The patient is status post cystoscopy with the right sided double-J catheter placement. Patient tolerated the procedure. Pain to the right leg is currently controlled. Denies having nausea, vomiting. No chest pain, shortness of breath or cough or any diarrhea. EXAMINATION: Blood pressure 121/57 with a pulse of 81, temperature of 97.9. She is 99% on 4 L nasal cannula. General description is an elderly female up in the chair in no distress. Respiratory system: Unlabored breathing clear to auscultation anteriorly. Heart S1, S2 regular rate and rhythm. Abdomen soft, no tenderness. EXTREMITIES: No edema of feet. LABS: Hemoglobin is 9.8, white count 15.9 with a BUN of 26, creatinine is 1.10. DIAGNOSTIC IMPRESSION AND PLAN: ESBL E. coli urinary tract infection and bacteremia secondary to right-sided complicated urinary tract infection status post cystoscopy and double-J catheter placement. She will continue on meropenem. Repeat blood culture ordered to document clearance of her bacteremia. Continue supportive care. MMODL / IJN: [id number] /
[2017-08-15] MEDS: MEROPENEM 1 GM in SODIUM CHLORIDE 0.9% 100 ML IVPB SCH ×2 (08:55→20:48)
--- NOTE | 2017-08-15 10:42 | P.PN ---
Progress Note - Text Progress Note Date: 08/15/17 The patient is afebrile and normotensive. She says that she feels better overall and has had less right flank and back pain. Her urine is grossly clear. White blood count is improved at 10,500. BUN/creatinine have also improved at 13/0.7. Blood and urine cultures are growing an ESBL E. coli which appears to be sensitive to meropenem. I explained to the patient that she will eventually require right ureteroscopy with removal of both the right ureteral calculus and the right renal calculus but this will be deferred for several weeks to allow resolution of her infection. Dr. Saunders performed ESWL on her in 04/2017 and will follow-up with her.
--- NOTE | 2017-08-15 14:13 | P.PN ---
Subjective Progress Note Date: 08/15/17 71 yo Old female patient with known history of kidney stones and recurrent urine tract infections. The patient came in through the emergency department yesterday because of shaking chills and feeling very weak and fatigued. For that reason she came into the hospital. She was having also on and off pain along the right flank area radiating to the right lower abdominal and the patient was concern of a recurrent urine tract infection knowing that she has had frequent UTIs in the past most recent of which was around 2 weeks ago for which she was given Macrobid on outpatient basis. Note that the patient has had previous CAT scan that was evaluated and seen by Dr. Alfaro. The patient had a 7 mm proximal ureteral calculus and another 1.2 cm lower pole right renal calculus. She has passed stone in the past. The last KUB that was done on showed a 3 mm distal UVJ calculus. She was having micro-hematuria. She underwent ESWL for the large stone in the right kidney on 04/26/2017. She was initially seen in the emergency department following that she was admitted to the medical floor. She was started on IV Unasyn. Subsequently she became hypotensive with her systolic blood pressure dropped down to the low 70s. She was given a total of 3 L and she remained hypotensive and following that she was started on pressors. Currently she is on 25 mics of levo fed which is running through a peripheral line in the right upper extremity. Also she is having some iron of CVA angle tenderness in the right flank area. The patient denies having any hematuria. Denies having any recent cloudiness in her urine. Her white cell count was suppressed initially with a white cell count of 1.0 and subsequently her white cell count came up to 10.8. She has 15 % bandemia. Her renal function is also abnormal and she has an acute kidney injury. She presents to the kidney function with a creatinine of 0.7 and her current creatinine is up to 1.4. She was started on IV Unasyn and this was later on switched to Merrem due to concerns of ESBL producing E. coli. She has been apparently infected by ESBL producing organisms in the past. A KUB was done in the emergency department that showed a 1 cm right renal stone in the inferior pole of the right kidney overlying the right iliac crest. The chest x- ray showed no acute abnormalities and there is evidence of mild pulmonary vascular congestion compared to yesterday's chest x-ray. She is known to have COPD. She is known to have recurrent urine checked infection and nephrolithiasis. On 08/14/2017, the patient is being seen in follow-up. She has done extremely well as the patient got resuscitated IV fluids and the patient got treated with antibiotics and pressors. Levo fed was actually weaned off and discontinued and currently she is off pressors. She was taken off pressors 6 AM this morning. No fever. No chills. She is still having some right flank pain. The CAT scan of the abdomen and pelvis was obtained yesterday and showed interval passage of a 7 mm right renal stone which was now plugging the proximal ureter and causing obstruction with right kidney hydronephrosis. The blood cultures positive for gram-negative bacilli. The patient be taken to the operating room today for insertion of double-J stent and possibly removal of the ureteral stone. This will be done by Dr. Enrique. She is awake and alert. She is afebrile for now. She is nothing by mouth for surgery. On 08/15/2017 the patient is being seen for a follow-up. The patient is doing extremely well. No fever. No ongoing signs of septicemia and the patient is currently off pressors. The blood culture showed E. coli that was an ESBL producing microorganism and the patient remains on IV Merrem. The patient also underwent a double-J stent insertion yesterday by Dr. Banda. She is producing adequate amount of urine output. No altered mentation. No fever or chills. No nausea or vomiting. No other significant events overnight. Objective - Vital Signs Vital signs: Vital Signs Temp 98.3 F 08/15/17 12:00 Pulse 82 08/15/17 13:00 Resp 24 08/15/17 13:00 BP 133/68 08/15/17 13:00 Pulse Ox 85 L 08/15/17 13:00 Intake & Output 08/14/17 08/15/17 08/15/17 18:59 06:59 18:59 Intake Total 2080 975 910 Output Total 275 701 1 Balance 1805 274 909 Weight 110 kg 113.8 kg Intake: IV 100 900 310 Sodium Chloride 0.9% 1, 900 310 000 ml @ 40 mls/hr IV . Q24H [facility] Rx#:[id number] Intake, IV Titration 1000 75 Amount Meropenem 1 gm In Sodium 100 Chloride 0.9% 100 ml @ 200 mls/hr IVPB Q12HR [facility] Rx#:[id number] Sodium Chloride 0.9% 1, 750 000 ml @ 40 mls/hr IV . Q24H [facility] Rx#:[id number] Sodium Chloride 0.9% 1, 150 75 000 ml As IV .[facility] Rx#:[id number] Oral 980 600 Output: Urine 275 701 Urine/Stool Mix 1 Estimated Blood Loss 0 Other: Voiding Method Bedside Commode Bedside Commode Bedside Commode Diaper # Voids 2 1 # Bowel Movements 1 - Exam The patient appeared well nourished and normally developed. Vital signs as documented. Head exam is unremarkable. No scleral icterus or corneal arcus noted. Neck is without jugular venous distension, thyromegaly, or carotid bruits. Carotid upstrokes are brisk bilaterally. Lungs are diminished breath sounds bilaterally along with some scattered expiratory wheezes secondary to her underlying COPD.. Cardiac exam reveals the PMI to be normally sized and situated. Rhythm is regular. First and second heart sounds normal. No murmurs, rubs or gallops. Abdominal exam reveals normal bowel sounds, no masses, no organomegaly and no aortic enlargement. He has a right CVA angle tenderness. Extremities are nonedematous and both femoral and pedal pulses are normal.Examination of the skin revealed no evidence of significant rashes, suspicious appearing nevi or other concerning lesions. Neurologically patient is awake and alert and she is moving all 4 extremities. - Labs CBC & Chem 7: 08/15/17 04:39 08/15/17 04:39 Labs: Abnormal Lab Results - Last 24 Hours (Table) 08/15/17 08/15/17 Range/Units 04:39 04:39 RBC 3.21 L (3.80-5.40) m/uL Hgb 9.4 L (11.4-16.0) gm/dL Hct 30.5 L (34.0-46.0) % MCHC 30.6 L (31.0-37.0) g/dL RDW 15.8 H (11.5-15.5) % Plt Count 139 L (150-450) k/uL Neutrophils # 8.5 H (1.3-7.7) k/uL Chloride 109 H (98-107) mmol/L Calcium 8.2 L (8.4-10.2) mg/dL Phosphorus 2.4 L (2.5-4.5) mg/dL Microbiology - Last 24 Hours (Table) 08/13/17 20:00 Gram Stain - Preliminary Sputum Sputum Culture - Preliminary 08/12/17 12:57 Urine Culture - Final Urine,Voided Escherichia coli 08/12/17 14:34 Blood Culture Gram Stain - Final Blood Blood Culture - Final Escherichia coli 08/13/17 08:00 Urine Culture - Final Urine,Catheterized Assessment and Plan Plan: 1 septic shock secondary to a urine tract infection/complicated UTI with possible pyelonephritis involving the right kidney. Rule out a complicated urine checked infection knowing that the patient has history of nephrolithiasis and kidney stones as discussed earlier. Underlying obstructive uropathy needs to be considered in association with kidney stones. On 08/14/2017 the patient is diagnosed having gram-negative septicemia secondary to a complicated urinary tract infection/pyelonephritis. The patient also has a 7 mm ureteral stone causing right-sided hydronephrosis. The patient will be taken to the operating room for cystoscopy, double-J stent insertion and removal of the ureteral stone. Meanwhile, the patient was aggressively resuscitated IV fluids. The patient is currently off pressors. Hemodynamically stable. Currently on IV normal saline at 1 50 mL an hour and antibiotic coverage is with Merrem. On 08/15/2017 the patient has recovered from his underlying septicemia. The patient has been well resuscitated IV fluids and pressors and currently she is off pressors. The microorganism wasn't 5 to be a ESBL producing gram negative E. coli and the patient is currently on IV Merrem. A double-J stent inserted in the right kidney and there are no ongoing signs of pyelonephritis at this point. The flank pain has completely subsided. 2 nephrolithiasis previous history of right kidney and ureteral stones, status post shockwave lithotripsy and the patient has history of recurrent urinary tract infection 3 E. coli, ESBL producing currently on IV meropenem. 4 acute kidney injury, improving 5 COPD/asthma 6 coronary artery disease previous [place] 7 degenerative arthritis 8 chronic anemia Plan Continue same antibiotic coverage. Cut down the IV fluids to 40 mL an hour. Continue IV meropenem. No need for pressors. We'll transfer this patient to a medical floor. Urology on the case. We'll continue to follow.
[2017-08-15] MEDS ORDERED: SODIUM CHLORIDE 0.65% NASAL SPRAY 44 ML BTL NASAL PRN (14:41)
[2017-08-15] MEDS: NYSTATIN 100,000 UNIT/ML SUSP 500,000 UNIT/5 ML CUP PO SCH ×2 (17:18→20:48)
--- NOTE | 2017-08-15 19:12 | PN ---
PROGRESS NOTE DATE OF SERVICE: 08/15/2017 This 71-year-old woman was admitted with acute right pyelonephritis also had a possible sepsis E coli. Patient also had ESBL E coli grown from the culture. Patient had urolithiasis and double-J catheter was inserted on the right side. The patient is mildly confused. Patient is being closely monitored at this time. The blood cultures also growing ESBL at this time. PAST MEDICAL HISTORY: Reviewed. REVIEW OF SYSTEMS: Cardio system: No angina or palpitations. Respiratory: As mentioned earlier. GI as mentioned earlier. : No dysuria. Central nervous system: No numbness or weakness. CURRENT MEDICATIONS ARE: 1. Tylenol 650 q.6 p.r.n. 2. Edward 10 mg t.i.d. p.r.n. 3. DuoNeb q.i.d. and p.r.n. 4. Xanax 0.5 t.i.d. 5. Lipitor 40 mg. 6. Coreg 12.5 mg b.i.d. 7. Plavix 75 mg p.o. daily. 8. Heparin subcu 5000 b.i.d. 9. Zestril 20 mg p.o. daily. 10.Meropenem 1 g IV b.i.d. 11.Morphine sulfate 4 mg IV q.4h p.r.n. 12.Habitrol 14 daily. 13.Ditropan XL. 14.Protonix. 15.Restoril p.r.n. PHYSICAL EXAM: Patient is alert, oriented x2. Pulse 83, blood pressure is 120/60, respiration 14, temperature 98.2, pulse ox 100% on room air. HEENT is conjunctivae normal. Oral mucosa moist. Neck is no jugular venous distention. No thyroid enlargement. No carotid bruit. Cardiovascular system: S1, S2 muffled. No S3, no S4. Respiratory: Breath sounds diminished in the bases. A few scattered rhonchi. No crackles. ABDOMEN: Soft, nontender. No mass palpable. Legs minimal edema. Nervous system: Higher functions as mentioned earlier. Moves all four extremities. Mild diffuse weakness. Lymphatics: No lymph nodes palpable in the neck and axilla. Skin no ulcers, rashes or bleeding. LAB STUDIES: WBC 10.2, hemoglobin 9.4, sodium 140 potassium 2.4. ASSESSMENT: 1. Acute right pyelonephritis with sepsis with the ESBL E coli. 2. Hypotension possibly secondary to severe sepsis. 3. Urolithiasis status post double-J catheter on the right side. 4. History of asthma, chronic obstructive pulmonary disease. 5. History of gastroesophageal reflux disease. 6. Hard of hearing. 7. History of myocardial infarction history. 8. History of coronary artery disease. 9. History of degenerative joint disease. 10.History of ESBL previously. 11.Obesity with body mass index of 37. 12.Mild acute renal failure, possibly prerenal renal failure. 13.Hypomagnesemia. 14.FULL CODE. RECOMMENDATIONS AND DISCUSSION: Recommend to continue current management and continue symptomatic treatment. Otherwise, at this time, continue with IV antibiotics. We will follow the repeat cultures to ensure normalcy. Otherwise continue the rest of the medications. Prognosis guarded because of the multiple complex medical issues and further recommendations to follow. Medication reconciliation carried out. JOSE ALBERTO / FAUSTO: [id number] /
[2017-08-15] MEDS: ATORVASTATIN 40 MG TAB PO SCH (20:48)
[2017-08-16 04:34] LABS: Basophils % (A) 0 %; Eosinophils # (A) 0.1 k/uL (0-0.7); Eosinophils % (A) 2 %; HCT 30.7 % (34.0-46.0); HGB 9.4 gm/dL (11.4-16.0); Hypochromasia Slight; Lymphocytes # (A) 1.3 k/uL (1.0-4.8); Lymphocytes % (A) 19 %; MCHC 30.5 g/dL (31.0-37.0); MCV 95.1 fL (80.0-100.0); Mean Platelet Volume 6.7; Monocytes # (A) 0.3 k/uL (0-1.0); Monocytes % (A) 4 %; Neutrophils # (A) 4.9 k/uL (1.3-7.7); Neutrophils % (A) 72 %; Platelet Count 152 k/uL (150-450); RBC 3.23 m/uL (3.80-5.40); RDW 14.7 % (11.5-15.5); WBC 6.8 k/uL (3.8-10.6)
[2017-08-16 04:49] LABS: Anion Gap 6 mmol/L; Blood Urea Nitrogen 8 mg/dL (7-17); Calcium 8.8 mg/dL (8.4-10.2); Carbon Dioxide 28 mmol/L (22-30); Chloride 108 mmol/L (98-107); Glucose 89 mg/dL (74-99); Magnesium 1.8 mg/dL (1.6-2.3); Phosphorus 2.7 mg/dL (2.5-4.5); Potassium 4.1 mmol/L (3.5-5.1); Sodium 142 mmol/L (137-145)
[2017-08-16] MEDS: MEROPENEM 1 GM in SODIUM CHLORIDE 0.9% 100 ML IVPB SCH ×2 (08:09→20:24)
[2017-08-16] MEDS: LISINOPRIL 20 MG TAB PO SCH (08:09)
[2017-08-16] MEDS: PANTOPRAZOLE 40 MG TABLET PO SCH (08:09)
[2017-08-16] MEDS: CLOPIDOGREL 75 MG TAB PO SCH (08:09)
[2017-08-16] MEDS: NYSTATIN 100,000 UNIT/ML SUSP 500,000 UNIT/5 ML CUP PO SCH ×4 (08:09→20:25)
[2017-08-16] MEDS: CARVEDILOL 12.5 MG TAB PO SCH ×2 (08:09→17:36)
[2017-08-16] MEDS: HEPARIN SODIUM,PORCINE 5,000 UNIT/ML 1 ML VIAL SQ SCH ×2 (08:10→20:25)
[2017-08-16] MEDS: OXYBUTYNIN XL 5 MG TAB.ER.24 PO SCH (08:10)
[2017-08-16] MEDS: NICOTINE 14MG/24HR PATCH TRANSDERM SCH (08:10)
--- NOTE | 2017-08-16 08:33 | XR ---
EXAMINATION TYPE: XR chest 1V DATE OF EXAM: 08/16/2017 COMPARISON: Prior chest x-ray 08/15/2017 HISTORY: Shortness of breath TECHNIQUE: Single frontal view of the chest is obtained. FINDINGS: The heart remains enlarged. Postop changes are noted to the shoulders. No evident pneumoth orax. Retrocardiac density, right basilar increased density persist. Central venous catheter has been removed from the left subclavian region. IMPRESSION: Correlate for lower lobe pneumonia versus atelectasis and associated effusion.
[2017-08-16] MEDS: IPRATROPIUM-ALBUTEROL 3 ML NEB INHALATION SCH ×4 (09:05→20:30)
--- NOTE | 2017-08-16 09:37 | P.PN ---
Subjective Progress Note Date: 08/16/17 Principal diagnosis: Acute septic shock secondary to acute urinary tract infection and acute pyelonephritis of the right kidney 71 yo Old female patient with known history of kidney stones and recurrent urine tract infections. The patient came in through the emergency department yesterday because of shaking chills and feeling very weak and fatigued. For that reason she came into the hospital. She was having also on and off pain along the right flank area radiating to the right lower abdominal and the patient was concern of a recurrent urine tract infection knowing that she has had frequent UTIs in the past most recent of which was around 2 weeks ago for which she was given Macrobid on outpatient basis. Note that the patient has had previous CAT scan that was evaluated and seen by Dr. Alfaro. The patient had a 7 mm proximal ureteral calculus and another 1.2 cm lower pole right renal calculus. She has passed stone in the past. The last KUB that was done on showed a 3 mm distal UVJ calculus. She was having micro-hematuria. She underwent ESWL for the large stone in the right kidney on 04/26/2017. She was initially seen in the emergency department following that she was admitted to the medical floor. She was started on IV Unasyn. Subsequently she became hypotensive with her systolic blood pressure dropped down to the low 70s. She was given a total of 3 L and she remained hypotensive and following that she was started on pressors. Currently she is on 25 mics of levo fed which is running through a peripheral line in the right upper extremity. Also she is having some iron of CVA angle tenderness in the right flank area. The patient denies having any hematuria. Denies having any recent cloudiness in her urine. Her white cell count was suppressed initially with a white cell count of 1.0 and subsequently her white cell count came up to 10.8. She has 15 % bandemia. Her renal function is also abnormal and she has an acute kidney injury. She presents to the kidney function with a creatinine of 0.7 and her current creatinine is up to 1.4. She was started on IV Unasyn and this was later on switched to Merrem due to concerns of ESBL producing E. coli. She has been apparently infected by ESBL producing organisms in the past. A KUB was done in the emergency department that showed a 1 cm right renal stone in the inferior pole of the right kidney overlying the right iliac crest. The chest x- ray showed no acute abnormalities and there is evidence of mild pulmonary vascular congestion compared to yesterday's chest x-ray. She is known to have COPD. She is known to have recurrent urine checked infection and nephrolithiasis. On 08/14/2017, the patient is being seen in follow-up. She has done extremely well as the patient got resuscitated IV fluids and the patient got treated with antibiotics and pressors. Levo fed was actually weaned off and discontinued and currently she is off pressors. She was taken off pressors 6 AM this morning. No fever. No chills. She is still having some right flank pain. The CAT scan of the abdomen and pelvis was obtained yesterday and showed interval passage of a 7 mm right renal stone which was now plugging the proximal ureter and causing obstruction with right kidney hydronephrosis. The blood cultures positive for gram-negative bacilli. The patient be taken to the operating room today for insertion of double-J stent and possibly removal of the ureteral stone. This will be done by Dr. Enrique. She is awake and alert. She is afebrile for now. She is nothing by mouth for surgery. On 08/15/2017 the patient is being seen for a follow-up. The patient is doing extremely well. No fever. No ongoing signs of septicemia and the patient is currently off pressors. The blood culture showed E. coli that was an ESBL producing microorganism and the patient remains on IV Merrem. The patient also underwent a double-J stent insertion yesterday by Dr. Banda. She is producing adequate amount of urine output. No altered mentation. No fever or chills. No nausea or vomiting. No other significant events overnight. Reevaluated today on 08/16/2017, patient is doing much better, in no form of distress, awaiting transfer to a monitor bed. Patient is off pressors, remains on IV fluids and antibiotics, blood cultures showed ESBL producing E. coli, hence the patient remains on IV Merrem. Urine output is adequate, and the patient seems to be in no form of respiratory distress. Chest x-ray showed atelectasis at the left base, and small left pleural effusion is suspected. Labs were reviewed she has a relatively normal CBC except for hemoglobin of 9.4 electrolytes and renal profile are normal. Objective - Vital Signs Vital signs: Vital Signs Temp 98.2 F 08/16/17 06:07 Pulse 75 08/16/17 09:18 Resp 14 08/16/17 06:07 BP 143/83 08/16/17 06:07 Pulse Ox 98 08/16/17 06:07 Intake & Output 08/15/17 08/16/17 08/16/17 18:59 06:59 18:59 Intake Total 1590 480 Output Total 1 650 Balance 1589 -170 Weight 115.3 kg Intake: IV 510 480 Sodium Chloride 0.9% 1, 510 480 000 ml @ 40 mls/hr IV . Q24H [facility] Rx#:[id number] Oral 1080 Output: Urine 650 Urine/Stool Mix 1 Other: Voiding Method Bedside Commode Bedside Commode # Voids 1 1 - Exam Physical Exam: Revealed a 71-year-old female in no form of respiratory distress. HEENT:[Neck is supple.] [No neck masses.] [No thyromegaly.] [No JVD.] Chest: [Clear throughout, no crackles, no rhonchi, no wheezes.] Cardiac Exam: [Normal S1 and S2, no S3 gallop, no murmur.] Abdomen: [Soft, nontender, no megaly, no rebound, no guarding, normal bowel sounds.] Extremities: [No clubbing, no edema, no cyanosis.] Neurological Exam: [No focal neurologic deficit.] Lymphatics: No lymphadenopathy Psychiatric: Normal mood affect and mental status examination. - Labs CBC & Chem 7: 08/16/17 03:54 08/16/17 03:54 Labs: Abnormal Lab Results - Last 24 Hours (Table) 08/16/17 08/16/17 Range/Units 03:54 03:54 RBC 3.23 L (3.80-5.40) m/uL Hgb 9.4 L (11.4-16.0) gm/dL Hct 30.7 L (34.0-46.0) % MCHC 30.5 L (31.0-37.0) g/dL Chloride 108 H (98-107) mmol/L Microbiology - Last 24 Hours (Table) 08/13/17 20:00 Gram Stain - Final Sputum Sputum Culture - Final Assessment and Plan Assessment: 1 septic shock secondary to a urine tract infection/complicated UTI with possible pyelonephritis involving the right kidney. Rule out a complicated urine checked infection knowing that the patient has history of nephrolithiasis and kidney stones as discussed earlier. Underlying obstructive uropathy needs to be considered in association with kidney stones. On 08/14/2017 the patient is diagnosed having gram-negative septicemia secondary to a complicated urinary tract infection/pyelonephritis. The patient also has a 7 mm ureteral stone causing right-sided hydronephrosis. The patient will be taken to the operating room for cystoscopy, double-J stent insertion and removal of the ureteral stone. Meanwhile, the patient was aggressively resuscitated IV fluids. The patient is currently off pressors. Hemodynamically stable. Currently on IV normal saline at 1 50 mL an hour and antibiotic coverage is with Merrem. On 08/15/2017 the patient has recovered from his underlying septicemia. The patient has been well resuscitated IV fluids and pressors and currently she is off pressors. The microorganism wasn't 5 to be a ESBL producing gram negative E. coli and the patient is currently on IV Merrem. A double-J stent inserted in the right kidney and there are no ongoing signs of pyelonephritis at this point. The flank pain has completely subsided. On 08/16/2017, patient seems to be recovering quite nicely, she is off pressors, awaiting for transfer to a monitor bed on selective today. Patient is presently on overflow. In the meantime we'll continue antibiotics, chest x-ray was reviewed, minimal atelectasis and small left pleural effusion is suspected at the left base. 2 nephrolithiasis previous history of right kidney and ureteral stones, status post shockwave lithotripsy and the patient has history of recurrent urinary tract infection 3 E. coli, ESBL producing currently on IV meropenem. 4 acute kidney injury, improving 5 COPD/asthma 6 coronary artery disease previous [place] 7 degenerative arthritis 8 chronic anemia Recommendation: Continue same antibiotics coverage/Merrem, will transfer patient to a nonmonitored bed on the floor today. No cardiac issues at present and no hemodynamic instability. Time with Patient: Less than 30
[2017-08-16] MEDS: AMPICILLIN-SULBACTAM 3 GM in SODIUM CHLORIDE 0.9% 100 ML IVPB SCH (09:42)
--- NOTE | 2017-08-16 10:43 | PN ---
PROGRESS NOTE DATE OF SERVICE: 08/15/2017. REASON FOR FOLLOWUP: ESBL E coli sepsis with history of complicated UTI. INTERVAL HISTORY: The patient is afebrile. She is breathing comfortably. Denies significant chest pain. No cough. Abdominal pain has improved. No nausea, no vomiting. No diarrhea. EXAMINATION: Blood pressure is 134/55 with a pulse of 68, temperature of 98. She is 99% on 4 L nasal cannula. General description is an elderly female, lying in bed in no distress. Respiratory system: Unlabored breathing. Clear to auscultation anteriorly. Heart S1, S2 regular rate and rhythm. Abdomen soft, no tenderness. LABS: Hemoglobin is 9.4, white count 10.5 with a BUN of 13, creatinine 0.70. DIAGNOSTIC IMPRESSION AND PLAN: Patient with ESBL E. coli urinary tract infection with secondary bacteremia status post cystoscopy with double-J catheter placement. The patient at this time will continue on meropenem with the plan to finish therapy with IV antibiotics. The PICC line will be placed tomorrow for continuation of antibiotics in the outpatient setting. Continue supportive care. MMODL / IJN: [id number] /
[2017-08-16] MEDS: SODIUM CHLORIDE 0.9% 1,000 ML IV SCH (13:10)
[2017-08-16] MEDS: MORPHINE SULFATE 5 MG/ML SYRINGE IV PRN ×2 (13:11→23:19)
[2017-08-16] MEDS: ATORVASTATIN 40 MG TAB PO SCH (20:25)
--- NOTE | 2017-08-17 04:40 | PN ---
PROGRESS NOTE DATE OF SERVICE: 08/16/2017 REASON FOR FOLLOWUP: ESBL Escherichia coli bacteremia and urinary tract infection. INTERVAL HISTORY: The patient is afebrile. She has been breathing comfortably. Denies significant chest pain. Occasional cough. Abdominal pain has improved. No nausea or vomiting. No diarrhea. PHYSICAL EXAMINATION: On examination, blood pressure is 142/64 with a pulse of 81, temperature of 98.4. She is 95% on room air. General description is an elderly female, lying in bed in no distress. RESPIRATORY SYSTEM: Unlabored breathing, clear to auscultation anteriorly. HEART: S1, S2. Regular rate and rhythm. ABDOMEN: Soft, no tenderness. LABS: Hemoglobin 9.4, white count 6.8 with a BUN of 8, creatinine 0.62. DIAGNOSTIC IMPRESSION AND PLAN: Patient with ESBL Escherichia coli bacteremia secondary to urinary source in a patient who did have complicated urinary tract infection with right-sided hydronephrosis status post double J catheter placement. Patient will still continue with meropenem. Plan to get a PICC line for outpatient IV Invanz. Total duration of antibiotic should be 2 weeks. Continue supportive care. MMODL / IJN: [id number] /
[2017-08-17] MEDS: MORPHINE SULFATE 5 MG/ML SYRINGE IV PRN (05:18)
[2017-08-17] MEDS: NICOTINE 14MG/24HR PATCH TRANSDERM SCH ×2 (07:47→07:48)
[2017-08-17] MEDS: NYSTATIN 100,000 UNIT/ML SUSP 500,000 UNIT/5 ML CUP PO SCH ×4 (07:47→21:13)
[2017-08-17] MEDS: CLOPIDOGREL 75 MG TAB PO SCH (07:48)
[2017-08-17] MEDS: OXYBUTYNIN XL 5 MG TAB.ER.24 PO SCH (07:48)
[2017-08-17] MEDS: LISINOPRIL 20 MG TAB PO SCH (07:48)
[2017-08-17] MEDS: CARVEDILOL 12.5 MG TAB PO SCH ×2 (07:48→18:15)
[2017-08-17] MEDS: HEPARIN SODIUM,PORCINE 5,000 UNIT/ML 1 ML VIAL SQ SCH ×2 (07:48→21:14)
[2017-08-17] MEDS: PANTOPRAZOLE 40 MG TABLET PO SCH (07:48)
[2017-08-17] MEDS: IPRATROPIUM-ALBUTEROL 3 ML NEB INHALATION SCH ×4 (08:12→20:33)
[2017-08-17 08:33] LABS: Basophils % (A) 0 %; Eosinophils # (A) 0.1 k/uL (0-0.7); Eosinophils % (A) 1 %; HCT 32.6 % (34.0-46.0); HGB 10.4 gm/dL (11.4-16.0); Lymphocytes # (A) 1.4 k/uL (1.0-4.8); Lymphocytes % (A) 21 %; MCH 29.5 pg (25.0-35.0); MCV 92.2 fL (80.0-100.0); Mean Platelet Volume 6.9; Monocytes # (A) 0.5 k/uL (0-1.0); Monocytes % (A) 7 %; Neutrophils # (A) 4.5 k/uL (1.3-7.7); Neutrophils % (A) 67 %; Platelet Count 207 k/uL (150-450); RBC 3.54 m/uL (3.80-5.40); RDW 14.3 % (11.5-15.5); WBC 6.7 k/uL (3.8-10.6)
--- NOTE | 2017-08-17 08:52 | XR ---
EXAMINATION TYPE: XR chest 1V DATE OF EXAM: 08/17/2017 COMPARISON: Prior chest x-ray 08/16/2017 HISTORY: Shortness of breath TECHNIQUE: Single frontal view of the chest is obtained. FINDINGS: There may be some improvement in aeration at the lung bases. Heart remains enlarged. No ev ident pneumothorax. No other significant interval change. IMPRESSION: Some improvement in aeration.
[2017-08-17 08:57] LABS: Anion Gap 7 mmol/L; Blood Urea Nitrogen 7 mg/dL (7-17); Calcium 9.1 mg/dL (8.4-10.2); Carbon Dioxide 31 mmol/L (22-30); Chloride 104 mmol/L (98-107); Glucose 92 mg/dL (74-99); Magnesium 1.6 mg/dL (1.6-2.3); Potassium 3.8 mmol/L (3.5-5.1); Sodium 142 mmol/L (137-145)
[2017-08-17] MEDS: MEROPENEM 1 GM in SODIUM CHLORIDE 0.9% 100 ML IVPB SCH (11:17)
[2017-08-17 11:56] VITALS: BMI 39.8
[2017-08-17] MEDS: HYDROcodone/APAP 10-325MG 1 EACH TAB PO PRN ×2 (12:55→21:14)
[2017-08-17] MEDS: SODIUM CHLORIDE 0.9% 1,000 ML IV SCH (12:56)
[2017-08-17] MEDS ORDERED: ERTAPENEM 1 GM in SODIUM CHLORIDE 0.9% 50 ML IVPB STA (12:59)
--- NOTE | 2017-08-17 14:47 | PN ---
PROGRESS NOTE DATE OF SERVICE: 08/17/2016. REASON FOR FOLLOWUP: ESBL E coli, UTI and bacteremia. INTERVAL HISTORY: The patient is afebrile. She is breathing comfortably. Patient denies having any chest pain or cough. No abdominal pain. No diarrhea. EXAMINATION: Blood pressure is 152/82 with a pulse of 85, temperature of 98.2. She is 93% on room air. General description is an elderly female, lying in bed in no distress. Respiratory system: Unlabored breathing, clear to auscultation anteriorly. Heart S1, S2. Regular rate and rhythm. Abdomen soft, no tenderness. LABS: Hemoglobin 10.4, white count 6.7, BUN of 7, creatinine 0.54. DIAGNOSTIC IMPRESSION AND PLAN: Patient with ESBL E coli urinary tract infection with secondary bacteremia. Followup blood culture on 08/15 has been negative. We will get a PICC line and the patient's antibiotic was switched to Invanz 1 g daily. She will need another 12 days to finish a course of therapy. Scripts have been written for the patient. Once antibiotic arranged she should be able to go home from ID standpoint. Plan was discussed with admitting as well as the renal case manager. MMODL / IJN: [id number] /
[2017-08-17] MEDS ORDERED: LIDOCAINE 2% INJ 20 MG/ML (20 ML MDV) ONE (14:53)
--- NOTE | 2017-08-17 15:19 | P.PN ---
Subjective Progress Note Date: 08/17/17 Principal diagnosis: Acute septic shock secondary to acute UTI and acute pyelonephritis of the right kidney 71 yo Old female patient with known history of kidney stones and recurrent urine tract infections. The patient came in through the emergency department yesterday because of shaking chills and feeling very weak and fatigued. For that reason she came into the hospital. She was having also on and off pain along the right flank area radiating to the right lower abdominal and the patient was concern of a recurrent urine tract infection knowing that she has had frequent UTIs in the past most recent of which was around 2 weeks ago for which she was given Macrobid on outpatient basis. Note that the patient has had previous CAT scan that was evaluated and seen by Dr. Alfaro. The patient had a 7 mm proximal ureteral calculus and another 1.2 cm lower pole right renal calculus. She has passed stone in the past. The last KUB that was done on showed a 3 mm distal UVJ calculus. She was having micro-hematuria. She underwent ESWL for the large stone in the right kidney on 04/26/2017. She was initially seen in the emergency department following that she was admitted to the medical floor. She was started on IV Unasyn. Subsequently she became hypotensive with her systolic blood pressure dropped down to the low 70s. She was given a total of 3 L and she remained hypotensive and following that she was started on pressors. Currently she is on 25 mics of levo fed which is running through a peripheral line in the right upper extremity. Also she is having some iron of CVA angle tenderness in the right flank area. The patient denies having any hematuria. Denies having any recent cloudiness in her urine. Her white cell count was suppressed initially with a white cell count of 1.0 and subsequently her white cell count came up to 10.8. She has 15 % bandemia. Her renal function is also abnormal and she has an acute kidney injury. She presents to the kidney function with a creatinine of 0.7 and her current creatinine is up to 1.4. She was started on IV Unasyn and this was later on switched to Merrem due to concerns of ESBL producing E. coli. She has been apparently infected by ESBL producing organisms in the past. A KUB was done in the emergency department that showed a 1 cm right renal stone in the inferior pole of the right kidney overlying the right iliac crest. The chest x- ray showed no acute abnormalities and there is evidence of mild pulmonary vascular congestion compared to yesterday's chest x-ray. She is known to have COPD. She is known to have recurrent urine checked infection and nephrolithiasis. On 08/14/2017, the patient is being seen in follow-up. She has done extremely well as the patient got resuscitated IV fluids and the patient got treated with antibiotics and pressors. Levo fed was actually weaned off and discontinued and currently she is off pressors. She was taken off pressors 6 AM this morning. No fever. No chills. She is still having some right flank pain. The CAT scan of the abdomen and pelvis was obtained yesterday and showed interval passage of a 7 mm right renal stone which was now plugging the proximal ureter and causing obstruction with right kidney hydronephrosis. The blood cultures positive for gram-negative bacilli. The patient be taken to the operating room today for insertion of double-J stent and possibly removal of the ureteral stone. This will be done by Dr. Enrique. She is awake and alert. She is afebrile for now. She is nothing by mouth for surgery. On 08/15/2017 the patient is being seen for a follow-up. The patient is doing extremely well. No fever. No ongoing signs of septicemia and the patient is currently off pressors. The blood culture showed E. coli that was an ESBL producing microorganism and the patient remains on IV Merrem. The patient also underwent a double-J stent insertion yesterday by Dr. Banda. She is producing adequate amount of urine output. No altered mentation. No fever or chills. No nausea or vomiting. No other significant events overnight. Reevaluated today on 08/16/2017, patient is doing much better, in no form of distress, awaiting transfer to a monitor bed. Patient is off pressors, remains on IV fluids and antibiotics, blood cultures showed ESBL producing E. coli, hence the patient remains on IV Merrem. Urine output is adequate, and the patient seems to be in no form of respiratory distress. Chest x-ray showed atelectasis at the left base, and small left pleural effusion is suspected. Labs were reviewed she has a relatively normal CBC except for hemoglobin of 9.4 electrolytes and renal profile are normal. On 08/17/2017 patient is seen in follow-up. Doing well, her last febrile episode was on 08/12/2017 with a temp of 100.6. There has been no other febrile episodes since then. Patient is hemodynamically stable, on room air with O2 sat at 93-98%. Denies any pulmonary complaints, denies any worsening shortness of breath, denies any significant chest congestion or sputum production. Her Vasquez has been discontinued, patient is using the bedside commode still has ongoing urinary frequency, but no dysuria. Lab work today was reviewed, WBC is 6.7, hemoglobin is 10.4, sodium is 142, potassium is 3.8, chloride is 104, carbon dioxide is 31, BUN of 7, creatinine of 0.54, magnesium of 1.6. Patient had a ESBL producing E. coli, remains on meropenem. Continues to improve. No other positive cultures were noted. Objective - Vital Signs Vital signs: Vital Signs Temp 98.2 F 08/17/17 07:00 Pulse 84 08/17/17 12:02 Resp 18 08/17/17 07:00 BP 152/82 08/17/17 07:00 Pulse Ox 93 L 08/17/17 07:00 Intake & Output 08/16/17 08/17/17 08/17/17 18:59 06:59 18:59 Intake Total 960 40 Output Total 800 Balance 160 40 Weight 115.3 kg Intake: IV 600 40 Sodium Chloride 0.9% 1, 600 40 000 ml @ 40 mls/hr IV . Q24H [facility] Rx#:[id number] Oral 360 Output: Urine 800 Other: Voiding Method Bedside Commode Bedside Commode # Voids 3 - Exam Physical Exam: Revealed a 71-year-old female in no form of respiratory distress. HEENT:[Neck is supple.] [No neck masses.] [No thyromegaly.] [No JVD.] Chest: [Clear throughout, no crackles, no rhonchi, no wheezes.] Cardiac Exam: [Normal S1 and S2, no S3 gallop, no murmur.] Abdomen: [Soft, nontender, no megaly, no rebound, no guarding, normal bowel sounds.] Extremities: [No clubbing, no edema, no cyanosis.] Neurological Exam: [No focal neurologic deficit.] Lymphatics: No lymphadenopathy Psychiatric: Normal mood affect and mental status examination. - Labs CBC & Chem 7: 08/17/17 07:57 08/17/17 07:57 Labs: Abnormal Lab Results - Last 24 Hours (Table) 08/17/17 08/17/17 Range/Units 07:57 07:57 RBC 3.54 L (3.80-5.40) m/uL Hgb 10.4 L (11.4-16.0) gm/dL Hct 32.6 L (34.0-46.0) % Carbon Dioxide 31 H (22-30) mmol/L Microbiology - Last 24 Hours (Table) 08/15/17 18:54 Blood Culture - Preliminary Blood No Growth after 24 hours Assessment and Plan Plan: Assessment: 1 septic shock secondary to a urine tract infection/complicated UTI with possible pyelonephritis involving the right kidney. Rule out a complicated urine checked infection knowing that the patient has history of nephrolithiasis and kidney stones as discussed earlier. Underlying obstructive uropathy needs to be considered in association with kidney stones. On 08/14/2017 the patient is diagnosed having gram-negative septicemia secondary to a complicated urinary tract infection/pyelonephritis. The patient also has a 7 mm ureteral stone causing right-sided hydronephrosis. The patient will be taken to the operating room for cystoscopy, double-J stent insertion and removal of the ureteral stone. Meanwhile, the patient was aggressively resuscitated IV fluids. The patient is currently off pressors. Hemodynamically stable. Currently on IV normal saline at 1 50 mL an hour and antibiotic coverage is with Merrem. On 08/15/2017 the patient has recovered from his underlying septicemia. The patient has been well resuscitated IV fluids and pressors and currently she is off pressors. The microorganism wasn't 5 to be a ESBL producing gram negative E. coli and the patient is currently on IV Merrem. A double-J stent inserted in the right kidney and there are no ongoing signs of pyelonephritis at this point. The flank pain has completely subsided. On 08/16/2017, patient seems to be recovering quite nicely, she is off pressors, awaiting for transfer to a monitor bed on [facility] today. Patient is presently on overflow. In the meantime we'll continue antibiotics, chest x-ray was reviewed, minimal atelectasis and small left pleural effusion is suspected at the left base. On 08/17/2017 patient is seen on medical surgical floor, doing very well, hemodynamically stable, afebrile. Vasquez has been removed, patient is still having some urinary frequency, but no dysuria. No evidence of leukocytosis on today's lab work, urine culture was positive for ESBL producing E. coli with sensitivity to Merrem. 2 nephrolithiasis previous history of right kidney and ureteral stones, status post shockwave lithotripsy and the patient has history of recurrent urinary tract infection 3 E. coli, ESBL producing currently on IV meropenem. 4 acute kidney injury, improving 5 COPD/asthma 6 coronary artery disease previous [place] 7 degenerative arthritis 8 chronic anemia Recommendation: Patient is doing well, afebrile, hemodynamically stable. Vasquez has been removed , patient is using the bedside commode, tolerating activity very well. Denies any specific complaints. Denies any dyspnea, cough or wheezing. Continues on meropenem for the ESBL producing E. coli. Continue increasing activity as tolerated. From pulmonary standpoint patient remains quite stable. We will continue following on as-needed basis I performed a history & physical examination of the patient and discussed their management with my nurse practitioner, Yane Erwin. I reviewed the nurse practitioner's note and agree with the documented findings and plan of care. Lung sounds are positive for a few scattered rhonchi. The findings and the impression was discussed with the patient. I attest to the documentation by the nurse practitioner. Time with Patient: Less than 30
--- NOTE | 2017-08-17 15:40 | IR ---
EXAMINATION TYPE: IR cvc insert >=5 years DATE OF EXAM: 08/17/2017 COMPARISON: NONE CLINICAL HISTORY: Infection Needs long-term intravenous access for antibiotics. PROCEDURE: After informed consent, the skin overlying the left brachial vein was localized with ultrasound and n oted to be compressible and patent. An ultrasound image was obtained and submitted on the patient's chart. The overlying skin was prepped and draped and Lidocaine was used for local anesthesia. A ski n miguel was made with a scalpel. Access was gained to the vein under ultrasound guidance with a 21 ga uge needle and a 0.018 inch wire was advanced. Access site was dilated with Peel-Away sheath and cat heter tailored to the appropriate length and advanced such that the distal tip is at the cavoatrial j unction. Spot image was obtained verifying placement. Catheter was fixed to the skin with suture an d a sterile dressing was placed following hemostasis. Catheter was aspirated and flushed with saline . Patient was discharged in stable condition without complication.Maximal barrier technique is utili zed. Ultrasound image is documented on the chart. Ultrasound used with sterile technique. Fluoro time and fluoroscopic images submitted to document procedure: 136 intraoperative images, 0.2 m inutes fluoroscopy time IMPRESSION: STATUS POST ULTRASOUND AND FLUOROSCOPIC GUIDED PICC LINE PLACEMENT, READY FOR USE. THIS PROCEDURE WAS PERFORMED BY THE UNDERSIGNED.
--- NOTE | 2017-08-17 17:44 | PN ---
PROGRESS NOTE DATE OF SERVICE: 08/17/2017 This 71-year-old woman who was admitted with ESBL E coli sepsis. The patient is being closely monitored. The patient is on broad-spectrum IV antibiotics. The patient being closely monitored. No chest pain. No palpitations. No fever. EXAM: Alert and oriented times three. Pulse is 84. Blood pressure 140/58, respiration 18, temperature 98.2, pulse ox 98% on room air. HEENT: Conjunctivae normal. Neck: No jugular venous distention. Cardiovascular: S1, S2 muffled. Respirations: Breath sounds diminished in the bases, a few scattered rhonchi. No crackles. Abdomen is soft, nontender. No mass palpable. Legs no edema. No swelling. Central nervous system: Diffusely weak. LABS: WBC 6.8, hemoglobin 10.4. ASSESSMENT: 1. Acute right pyelonephritis sepsis with ESBL E coli. 2. Hypotension possibly secondary to severe sepsis. 3. Urolithiasis. Status post double-J catheter on the right side. 4. History of asthma, chronic obstructive pulmonary disease. 5. History of gastroesophageal reflux disease. 6. History of hard of hearing. 7. History of myocardial infarction history. 8. History of coronary artery disease. 9. History of degenerative joint disease. 10.History of previously. 11.Obesity with body mass index of 37. 12.Mild acute renal failure possibly prerenal. 13.Hypomagnesemia. 14.FULL CODE. RECOMMENDATIONS AND DISCUSSION: Recommend to continue current medications. Continue to monitor, symptomatic treatment. Otherwise, at this time, I recommend IV antibiotics. Outpatient antibiotics. Follow closely with Infectious Disease. Guarded prognosis. Further recommendations to follow. MMODL / IJN: [id number] / [facility]
--- NOTE | 2017-08-17 19:10 | P.PN ---
Subjective Progress Note Date: 08/16/17 Progress Note being dictated for Dr. Haris Wallace history: This is a 71-year-old female admitted with acute right pyelonephritis with ESBL E. coli sepsis. Maintained on IV antibiotics of Merrem as per infectious disease. Denies chest pain, palpitations or increasing shortness of breath. Afebrile. Denies nausea vomiting, improving abdominal pain. Denies diarrhea. Review of systems: CONSTITUTIONAL: No fever, no malaise, no fatigue. HEENT: No recent visual problems or hearing problems. Denied any sore throat. CARDIOVASCULAR: No chest pain, orthopnea, PND, no palpitations, no syncope. PULMONARY: No shortness of breath, no cough, no hemoptysis. GASTROINTESTINAL: No diarrhea, no nausea, no vomiting, improving abdominal pain. Normoactive bowel sounds. NEUROLOGICAL: No headaches, no weakness, no numbness. HEMATOLOGICAL: Denies any bleeding or petechiae. GENITOURINARY: Denies any burning micturition, frequency, or urgency. MUSCULOSKELETAL/RHEUMATOLOGICAL: Denies any joint pain, swelling, or any muscle pain. ENDOCRINE: Denies any polyuria or polydipsia. PSYCHIATRIC: No anxiety, no depression The rest of the 14 point review of systems is negative Active Medications Acetaminophen (Tylenol Tab) 650 mg PO Q6HR PRN PRN Reason: Mild Pain or Fever > 100.5 Last Admin: 08/12/17 23:29 Dose: 650 mg Hydrocodone Bitart/Acetaminophen ([place] 10) 1 each PO TID PRN PRN Reason: Pain Last Admin: 08/13/17 17:28 Dose: 1 each Albuterol/Ipratropium (Duoneb 0.5 Mg-3 Mg/3 Ml Soln) 3 ml INHALATION RT-QID LULU Last Admin: 08/16/17 16:41 Dose: 3 ml Albuterol/Ipratropium (Duoneb 0.5 Mg-3 Mg/3 Ml Soln) 3 ml INHALATION RT-Q4H PRN PRN Reason: Shortness Of Breath Or Wheezing Alprazolam (Xanax) 0.25 mg PO TID PRN PRN Reason: Anxiety Last Admin: 08/12/17 23:11 Dose: 0.25 mg Atorvastatin Calcium (Lipitor) 40 mg PO HS [facility] Last Admin: 08/15/17 20:48 Dose: 40 mg Carvedilol (Coreg) 12.5 mg PO BID-W/MEALS [facility] Last Admin: 08/16/17 17:36 Dose: 12.5 mg Clopidogrel Bisulfate (Plavix) 75 mg PO DAILY [facility] Last Admin: 08/16/17 08:09 Dose: 75 mg Heparin Sodium (Porcine) (Heparin) 5,000 unit SQ Q12HR [facility] Last Admin: 08/16/17 08:10 Dose: 5,000 unit Sodium Chloride (Saline 0.9%) 1,000 mls @ 40 mls/hr IV .Q24H [facility] Last Admin: 08/16/17 13:10 Dose: 40 mls/hr Norepinephrine Bitartrate (Levophed-0.9% Nacl 16 Mg/250ml Pmx) 16 mg in 250 mls @ 0 mls/hr IV .Q0M [facility]; Titrate PRN Reason: Protocol Last Titration: 08/14/17 06:04 Dose: 0 mcg/min, 0 mls/hr Meropenem 1 gm/ Sodium (Chloride) 100 mls @ 200 mls/hr IVPB Q12HR [facility] Last Admin: 08/16/17 08:09 Dose: 200 mls/hr Lisinopril (Zestril) 20 mg PO DAILY [facility] Last Admin: 08/16/17 08:09 Dose: 20 mg Miscellaneous Information (Potassium Per Protocol) 1 each MISCELLANE DAILY PRN ; Protocol PRN Reason: Per Protocol Morphine Sulfate (Morphine Sulfate) 4 mg IV Q4HR PRN PRN Reason: Severe Pain Last Admin: 08/16/17 13:11 Dose: 4 mg Naloxone HCl (Narcan) 0.2 mg IV Q2M PRN PRN Reason: Opioid Reversal Nicotine (Habitrol 14mg/24hr Patch) 1 patch TRANSDERM DAILY [facility] Last Admin: 08/16/17 08:10 Dose: 1 patch Nystatin (Mycostatin Oral Susp) 500,000 unit PO QID [facility] Last Admin: 08/16/17 17:36 Dose: 500,000 unit Ondansetron HCl (Zofran) 4 mg IVP Q8HR PRN PRN Reason: Nausea And Vomiting Oxybutynin Chloride (Ditropan Xl) 5 mg PO DAILY [facility] Last Admin: 08/16/17 08:10 Dose: 5 mg Pantoprazole Sodium (Protonix) 40 mg PO DAILY [facility] Last Admin: 08/16/17 08:09 Dose: 40 mg Sodium Chloride (Deep Sea) 2 spray NASAL QID PRN PRN Reason: Dry Nasal Passages Temazepam (Restoril) 15 mg PO HS PRN PRN Reason: Insomnia Objective - Vital Signs Vital signs: Vital Signs Temp 98.2 F 08/16/17 06:07 Pulse 78 08/16/17 16:55 Resp 14 08/16/17 16:00 BP 143/83 08/16/17 06:07 Pulse Ox 98 08/16/17 06:07 Intake & Output 08/15/17 08/16/17 08/16/17 18:59 06:59 18:59 Intake Total 1590 480 960 Output Total 1 650 800 Balance 1589 -170 160 Weight 115.3 kg Intake: IV 510 480 600 Sodium Chloride 0.9% 1, 510 480 600 000 ml @ 40 mls/hr IV . Q24H [facility] Rx#:[id number] Oral 1080 360 Output: Urine 650 800 Urine/Stool Mix 1 Other: Voiding Method Bedside Commode Bedside Commode # Voids 1 1 - Exam PHYSICAL EXAM: VITAL SIGNS: [] GENERAL: HEENT: Conjunctivae normal. eyes normal. NECK: No JVD. No thyroid enlargement. No LNs CARDIOVASCULAR: S1, S2 muffled. No murmur RESPIRATION: Breath sounds diminished in the bases. No rhonchi or crackles. No bronchial breathing. ABDOMEN: Soft, nontender . No guarding. no masses palpable. No ascites, No hepatosplenomegaly.Bowel sounds heard. LEGS: No edema. no swelling PSYCHIATRY: Alert and oriented -3, mood and affect normal. NERVOUS SYSTEM: Cranial N 2-12 grossly normal. Moves all 4 limbs. Diffuse weakness No focal deficits. No sensory deficit. No signs of cerebellar dysfucntion. Skin: no ulcer no rash Joints: No active swelling. No inflammation. Lymphatic system. No LN neck axilla or groin. Microbiology 08/13/17 20:00 Sputum Gram Stain - Final 08/13/17 20:00 Sputum Sputum Culture - Final 08/12/17 12:57 Urine,Voided Urine Culture - Final Escherichia coli 08/12/17 14:34 Blood Blood Culture Gram Stain - Final 08/12/17 14:34 Blood Blood Culture - Final Escherichia coli 08/13/17 08:00 Urine,Catheterized Urine Culture - Final 08/12/17 14:34 Blood Blood Culture - Final - Labs CBC & Chem 7: 08/17/17 07:57 08/17/17 07:57 Labs: Abnormal Lab Results - Last 24 Hours (Table) 08/16/17 08/16/17 Range/Units 03:54 03:54 RBC 3.23 L (3.80-5.40) m/uL Hgb 9.4 L (11.4-16.0) gm/dL Hct 30.7 L (34.0-46.0) % MCHC 30.5 L (31.0-37.0) g/dL Chloride 108 H (98-107) mmol/L Microbiology - Last 24 Hours (Table) 08/13/17 20:00 Gram Stain - Final Sputum Sputum Culture - Final Assessment and Plan Assessment: 1. Acute right pyelonephritis sepsis with ESBL E. coli 2. Hypotension, possibly secondary to severe sepsis, improving 3. Urolithiasis, status post double-J catheter on the right side 4. COPD, history of 5. Hard of hearing 6. Mild acute renal failure, possibly prerenal 7. Hypomagnesemia 8. Morbid Obesity, BMI 39.8 Plan: Continue on current medication regime ,monitoring and symptomatic treatment. Antibiotics as per infectious disease. PICC line pending. Further recommendations to follow. The impression and plan of care has been dictated as directed. : I performed a history and examination of this patient, discussed the same with the dictator. I agree with the dictator's note ,documented as a scribe. Any additional findings or plans will be noted.
[2017-08-17] MEDS ORDERED: Magnesium Replacement Protocol 1 EACH MISC MISCELLANE PRN (19:12)
[2017-08-17] MEDS: ATORVASTATIN 40 MG TAB PO SCH (21:14)
[2017-08-18] MEDS: HYDROcodone/APAP 10-325MG 1 EACH TAB PO PRN ×2 (03:28→13:21)
[2017-08-18 07:45] LABS: Basophils % (A) 0 %; Eosinophils # (A) 0.1 k/uL (0-0.7); Eosinophils % (A) 2 %; HCT 30.4 % (34.0-46.0); HGB 10.1 gm/dL (11.4-16.0); Lymphocytes # (A) 1.6 k/uL (1.0-4.8); Lymphocytes % (A) 28 %; MCH 29.1 pg (25.0-35.0); MCHC 33.1 g/dL (31.0-37.0); Mean Platelet Volume 6.7; Monocytes # (A) 0.4 k/uL (0-1.0); Monocytes % (A) 8 %; Neutrophils # (A) 3.4 k/uL (1.3-7.7); Neutrophils % (A) 59 %; Platelet Count 242 k/uL (150-450); RBC 3.46 m/uL (3.80-5.40); RDW 14.4 % (11.5-15.5); WBC 5.8 k/uL (3.8-10.6)
[2017-08-18 07:52] VITALS: BP 153/78; RESP 16; TEMP 98.5
[2017-08-18] MEDS: CARVEDILOL 12.5 MG TAB PO SCH (07:55)
[2017-08-18] MEDS: NICOTINE 14MG/24HR PATCH TRANSDERM SCH (07:55)
[2017-08-18] MEDS: NYSTATIN 100,000 UNIT/ML SUSP 500,000 UNIT/5 ML CUP PO SCH (07:55)
[2017-08-18] MEDS: OXYBUTYNIN XL 5 MG TAB.ER.24 PO SCH (07:56)
[2017-08-18] MEDS: LISINOPRIL 20 MG TAB PO SCH (07:56)
[2017-08-18] MEDS: HEPARIN SODIUM,PORCINE 5,000 UNIT/ML 1 ML VIAL SQ SCH (07:56)
[2017-08-18] MEDS: PANTOPRAZOLE 40 MG TABLET PO SCH (07:56)
[2017-08-18] MEDS: CLOPIDOGREL 75 MG TAB PO SCH (07:56)
[2017-08-18 08:01] LABS: Anion Gap 7 mmol/L; Blood Urea Nitrogen 6 mg/dL (7-17); Calcium 9.3 mg/dL (8.4-10.2); Carbon Dioxide 34 mmol/L (22-30); Chloride 101 mmol/L (98-107); Glucose 94 mg/dL (74-99); Magnesium 1.7 mg/dL (1.6-2.3); Phosphorus 3.9 mg/dL (2.5-4.5); Potassium 3.7 mmol/L (3.5-5.1); Sodium 142 mmol/L (137-145)
[2017-08-18] MEDS: IPRATROPIUM-ALBUTEROL 3 ML NEB INHALATION SCH ×2 (08:02→11:55)
--- NOTE | 2017-08-18 10:35 | XR ---
EXAMINATION TYPE: XR chest 1V DATE OF EXAM: 08/18/2017 COMPARISON: Prior chest x-ray 08/17/2017 HISTORY: Shortness of breath TECHNIQUE: Single frontal view of the chest is obtained. FINDINGS: There is no focal air space opacity, pleural effusion, or pneumothorax seen. The cardiac silhouette size is stable, borderline enlarged. Postop changes are noted shoulders as on prior exam. The osseous structures are intact. IMPRESSION: No acute process.
[2017-08-18 11:58] VITALS: PULSE 84
[2017-08-18] MEDS ORDERED: ERTAPENEM 1 GM in SODIUM CHLORIDE 0.9% 50 ML IVPB SCH (12:00)
[2017-08-18] MEDS: SODIUM CHLORIDE 0.9% 1,000 ML IV SCH (12:01)
--- NOTE | 2017-08-18 15:21 | PN ---
PROGRESS NOTE DATE OF SERVICE: 08/18/2017 REASON FOR FOLLOWUP VISIT: ESBL E coli bacteremia and pyelonephritis. INTERVAL HISTORY: The patient is afebrile. She has been seen on rounds this morning, breathing comfortably. Denies having any chest pain, shortness of breath. No abdominal pain, no diarrhea. PHYSICAL EXAMINATION: Blood pressure 153/78 with a pulse of 74, temperature of 98.5. She is 90% on room air. General description is an elderly female lying in bed in no distress. RESPIRATORY SYSTEM: Unlabored breathing, clear to auscultation anteriorly. HEART: S1, S2. Regular rate and rhythm. ABDOMEN: Soft, no tenderness. LABS: Hemoglobin is 10.1, white count of 5.8, BUN of 6, creatinine 0.65. DIAGNOSTIC IMPRESSION AND PLAN: Patient with ESBL E coli bacteremia secondary to the pyelonephritis. Repeat blood culture has been negative. She did get a PICC line, which she will continue on Invanz 1 g daily for another 12 days to finish a course of therapy with close outpatient followup. MMCAROL / FAUSTO: [id number] /
--- NOTE | 2017-08-19 16:37 | P.DS ---
Providers Date of admission: 08/12/17 16:50 Expected date of discharge: 08/18/17 Attending physician: Raiza Bustamante Consults: 08/13/17 06:32 Consult Physician Stat Consulting Provider: Bennett Rouse Consult Reason/Comments: icu managment Do you want consulting provider notified?: Yes Consult Physician Urgent Consulting Provider: Carlito Granger Consult Reason/Comments: positive blood cultures, UTI, pylenephritis Do you want consulting provider notified?: Yes 08/13/17 11:17 Consult Physician Stat Consulting Provider: Trevin Saunders Consult Reason/Comments: pyelonephritis, right renal calculus, sepsis Do you want consulting provider notified?: Yes Primary care physician: Sophie Jacobson Hospital Course: Final Diagnoses: 1. Acute right pyelonephritis sepsis with ESBL E. coli 2. Hypotension, possibly secondary to severe sepsis, improving 3. Urolithiasis, status post double-J catheter on the right side 4. COPD, history of 5. Hard of hearing 6. Mild acute renal failure, possibly prerenal 7. Hypomagnesemia 8. Morbid Obesity, BMI 39.8 Hospital course: This is a 71-year-old female admitted with septic shock secondary to acute right pyelonephritis with ESBL E. coli sepsis.initially required ICU,received IV fluid boluses, pressor support. Evaluated by infectious disease, urology,and writing manager/pulmonary. Maintained on IV antibioticsas per infectious disease. underwent cystoscopy with placement of right double-J catheter. Per urology,patient will eventually require right ureteroscopy with removal of both the right ureteral calculus and right renal calculus,deferred for several weeks to allow resolution of infection and patient is to follow up with Dr. Saunders.PICC line placed for outpatient IV antibiotic therapy. Significant clinical improvement. Patient has been cleared by all consults for discharge. Patient is being discharged home in a stable condition with guarded prognosis. physical exam:CARDIOVASCULAR: S1, S2 muffled. No murmur.RESPIRATION: Breath sounds diminished in the bases. No rhonchi or crackles. ABDOMEN: Soft, nontender . No guarding. no masses palpable.Bowel sounds heard.PSYCHIATRY: Alert and oriented -3, mood and affect normal.no focal deficits. Microbiology 08/15/17 18:54 Blood Blood Culture - Preliminary No Growth after 72 hours 08/13/17 20:00 Sputum Gram Stain - Final 08/13/17 20:00 Sputum Sputum Culture - Final 08/12/17 12:57 Urine,Voided Urine Culture - Final Escherichia coli 08/12/17 14:34 Blood Blood Culture Gram Stain - Final 08/12/17 14:34 Blood Blood Culture - Final Escherichia coli 08/13/17 08:00 Urine,Catheterized Urine Culture - Final 08/12/17 14:34 Blood Blood Culture - Final The impression and plan of care has been dictated as directed. : I performed a history and examination of this patient, discussed the same with the dictator. I agree with the dictator's note ,documented as a scribe. Any additional findings or plans will be noted. Time taken: 35 minutes. Patient Condition at Discharge: Stable Plan - Discharge Summary Discharge Rx Participant: No New Discharge Prescriptions: New Ertapenem [INVanz] 1 gm IVPB Q24H #12 bag No Action Tolterodine Tartrate [Detrol LA] 4 mg PO DAILY Lisinopril [Zestril] 20 mg PO DAILY Clopidogrel Bisulfate [Plavix] 75 mg PO DAILY Carvedilol [Coreg] 12.5 mg PO BID Atorvastatin [Lipitor] 40 mg PO HS Aspirin EC [Ecotrin Low Dose] 81 mg PO DAILY Albuterol Inhaler [Ventolin Hfa Inhaler] 2 puff INHALATION RT-Q6H PRN PRN Reason: Shortness Of Breath Acetaminophen Tab [Tylenol Tab] 650 mg PO Q6H PRN PRN Reason: Pain HYDROcodone/APAP 10-325MG [[place] 10-325] 7.5 tab PO TID PRN PRN Reason: Pain Nystatin 100,000 Unit/ml Susp [Mycostatin Oral Susp] 4 ml PO QID Discharge Medication List Acetaminophen Tab [Tylenol Tab] 650 mg PO Q6H PRN 08/12/17 [History] Albuterol Inhaler [Ventolin Hfa Inhaler] 2 puff INHALATION RT-Q6H PRN 08/12/17 [ History] Aspirin EC [Ecotrin Low Dose] 81 mg PO DAILY 08/12/17 [History] Atorvastatin [Lipitor] 40 mg PO HS 08/12/17 [History] Carvedilol [Coreg] 12.5 mg PO BID 08/12/17 [History] Clopidogrel Bisulfate [Plavix] 75 mg PO DAILY 08/12/17 [History] HYDROcodone/APAP 10-325MG [[place] 10-325] 7.5 tab PO TID PRN 08/12/17 [History] Lisinopril [Zestril] 20 mg PO DAILY 08/12/17 [History] Tolterodine Tartrate [Detrol LA] 4 mg PO DAILY 08/12/17 [History] Ertapenem [INVanz] 1 gm IVPB Q24H #12 bag 08/17/17 [Rx] Nystatin 100,000 Unit/ml Susp [Mycostatin Oral Susp] 4 ml PO QID 08/19/17 [ History] Follow up Appointment(s)/Referral(s): [facility], [REFERRING] - 1 Week Sophie Jacobson MD [Primary Care Provider] - 08/23/17 12:15 pm Carlito Granger MD [STAFF PHYSICIAN] - 08/26/17 11:30 am [facility] Visiting Nurse, [NON-STAFF] - Patient Instructions/Handouts: Ertapenem (By injection), Urinary Tract Infection in Women (DC), Peripherally Inserted Central Catheters and Midline Catheters (DC) Activity/Diet/Wound Care/Special Instructions: [facility] infusion center for your antibiotics - please arrive at 2:45pm tomorrow for your infusion. follow-up with Dr. Saunders, urology as advised. Discharge Disposition: HOME SELF-CARE
== END 2017-08-18 13:30 | disposition home or self-care (01) | DRG 871 ==
LOC: EC 12:40 → 5MS5E 16:50 → 6ICU 08-13 07:10 → 5MS5E 08-16 21:27
PROVIDERS: ADMIT Hospitalist; ATTEND Hospitalist
PROC: 05H633Z Insertion of Infusion Device into Left Subclavian Vein, Percutaneous Approach (ICD-10-PCS; 2017-08-14)
PROC: 0T9B80Z Drainage of Bladder with Drainage Device, Via Natural or Artificial Opening Endoscopic (ICD-10-PCS; principal; 2017-08-14 08:30)
PROC: B518ZZA Fluoroscopy of Superior Vena Cava, Guidance (ICD-10-PCS; 2017-08-17)
PROC: B54NZZA Ultrasonography of Left Upper Extremity Veins, Guidance (ICD-10-PCS; 2017-08-17)
PROC: 02HV33Z Insertion of Infusion Device into Superior Vena Cava, Percutaneous Approach (ICD-10-PCS; 2017-08-17 12:45)
DX: A41.51 Sepsis due to Escherichia coli [E. coli] (principal); R65.21 Severe sepsis with septic shock; N17.9 Acute kidney failure, unspecified; I11.0 Hypertensive heart disease with heart failure; J18.9 Pneumonia, unspecified organism; I50.9 Heart failure, unspecified; D64.9 Anemia, unspecified; J44.0 Chronic obstructive pulmonary disease with (acute) lower respiratory infection; N13.6 Pyonephrosis; N10 Acute pyelonephritis; E66.01 Morbid (severe) obesity due to excess calories; K21.9 Gastro-esophageal reflux disease without esophagitis; H91.90 Unspecified hearing loss, unspecified ear; I25.10 Atherosclerotic heart disease of native coronary artery without angina pectoris; E83.42 Hypomagnesemia; M19.90 Unspecified osteoarthritis, unspecified site; F17.200 Nicotine dependence, unspecified, uncomplicated; Z80.0 Family history of malignant neoplasm of digestive organs; Z88.8 Allergy status to other drugs, medicaments and biological substances; Z68.39 Body mass index [BMI] 39.0-39.9, adult; Z91.048 Other nonmedicinal substance allergy status; Z79.891 Long term (current) use of opiate analgesic; Z79.899 Other long term (current) drug therapy; Z79.02 Long term (current) use of antithrombotics/antiplatelets; Z87.440 Personal history of urinary (tract) infections; I25.2 Old myocardial infarction; Z96.611 Presence of right artificial shoulder joint; Z96.612 Presence of left artificial shoulder joint; Z98.84 Bariatric surgery status; Z96.652 Presence of left artificial knee joint; Z90.49 Acquired absence of other specified parts of digestive tract; Z87.442 Personal history of urinary calculi
CPT/HCPCS: 36415; 36569; 71045; 71046; 74018; 74176; 76937; 77001; 80048; 80053; 81001; 82550; 82553; 83605; 83735; 83880; 84100; 84484; 85025; 85610; 85730; 87040; 87070; 87077; 87086; 87186; 87205; 93005; 94640; 96361; 96365; 96375; 99285

== ENCOUNTER → 2017-12-01 | Outpatient (CLI) | payer MEDICARE ==
--- NOTE | 2017-12-01 14:45 | XR ---
Abdomen HISTORY: Renal calculus Frontal view of the abdomen submitted on 2 images and correlated to prior exam 08/12/2017 There are calcifications seen within the pelvis bilaterally. Patient is post right hip arthroplasty. Degenerative disc changes again noted in the visualized spine. Surgical clips present in the right up per quadrant. Lung bases are clear. Overlying bowel gas may obscure detail within the kidneys. IMPRESSION: Indeterminate calcifications within the pelvis, many of which are felt likely represent p hleboliths.
== END | disposition home or self-care (01) ==
LOC: RADXRMAIN 13:11
PROVIDERS: ATTEND Urology
DX: R93.41 Abnormal radiologic findings on diagnostic imaging of renal pelvis, ureter, or bladder (principal); N20.0 Calculus of kidney
CPT/HCPCS: 74018

== ENCOUNTER → 2017-12-02 | Outpatient (CLI) | payer MEDICARE ==
--- NOTE | 2017-12-02 10:57 | CT ---
EXAMINATION TYPE: CT abdomen pelvis wo con DATE OF EXAM: 12/02/2017 COMPARISON: 08/13/2017 INDICATION: right sided flank pain with occasional hematuria DLP: 860.1 mGycm, Automated exposure control for dose reduction was used. CONTRAST: 0 mL of Isovue 300. Study performed without Oral Contrast TECHNIQUE: Axial images were obtained from above the diaphragm to the pubic rami in the axial plane a t 5 mm thick sections. Reconstructed images are reviewed on the computer in the coronal plane. FINDINGS: Limited CT sections are obtained the lung bases. The lung bases are clear. Some mild coronary arter y calcification is present. CT ABDOMEN: Postsurgical changes are present on the stomach. The gallbladder surgically absent. Surgi chandni changes within the left upper quadrant loop of bowel. Liver: There may be a vague hypodense mass in the left lobe liver measuring 1.3 cm. Series 3 image 32 . Spleen: Normal Pancreas: Normal Adrenal glands: The adrenal glands are normal. Gallbladder: Surgically absent Kidneys: No masses are evident. No hydronephrosis is present. No cysts are present. No renal or ur eteral stones are evident. Previous right upper pole right kidney stone is not visualized on the curr ent examination. No hydroureter is evident. No proximal right ureteral stone is evident. Aorta: Vascular calcification is within the aorta. Inferior vena cava: Normal. CT PELVIS: Lower pelvis is limited due to beam hardening artifact from right hip prosthesis. Nancy- Umbilical hernia containing mesenteric fat is present. Loops of bowel within the abdomen and pelvis are normal. Studies without oral contrast limiting t he bowel loop evaluation. Scattered diverticuli are within the sigmoid colon. Appendix: Normal as visualized. Urinary bladder: Limited evaluation due to beam hardening artifact Genitourinary structures: Uterus appears normal. Adnexal regions as visualized are normal. Osseous structures: No suspicious lytic or sclerotic lesions. Facet changes are within the lumbar spi ne. IMPRESSIONS: 1. Subtle hypodensity may be within the left lobe liver. Consider ultrasound for additional evaluati on. This is not readily apparent on the comparison of 08/13/2017. 2. Resolution of previous right renal and ureteral stones.
== END | disposition home or self-care (01) ==
LOC: RADCTMAIN 09:58
PROVIDERS: ATTEND Urology
DX: R10.9 Unspecified abdominal pain (principal); Z87.442 Personal history of urinary calculi
CPT/HCPCS: 74176

== ENCOUNTER → 2017-12-31 | Outpatient (CLI) | payer MEDICARE ==
--- NOTE | 2017-12-31 16:44 | US ---
EXAMINATION TYPE: US liver DATE OF EXAM: 12/31/2017 COMPARISON: NONE CLINICAL HISTORY: R94.5 ABN LIVER FUNCTION TEST. Possible mass on liver seen on recent CT exam. Nieves cystectomy. Abnormal liver function EXAM MEASUREMENTS: Liver Length: 15.2 cm Gallbladder Wall: Surgically absent CBD: 1.3 cm Right Kidney: 10.3 x 4.7 x 5.5 cm Pancreas: limited evaluation due to overlying bowel content, duct = 3.6mm Liver: hypoechoic area vs. cystic area left lobe = 1.1 x 1.2 x 1.5cm, unable to clear low-level echo es. MRI can be performed for closer evaluation. Gallbladder: Surgically absent Evidence for sonographic Foreman's sign: no CBD: appears dilated Right Kidney: no evidence of hydronephrosis IMPRESSION: 1. Complex cyst versus hypoechoic circumscribed mass medial left lobe liver. MRI with contrast could be utilized to further differentiate this structure.
== END | disposition home or self-care (01) ==
LOC: RADUSWWP 10:44
PROVIDERS: ATTEND Internal Medicine
DX: R94.5 Abnormal results of liver function studies (principal)
CPT/HCPCS: 76705

== ENCOUNTER → 2018-01-05 | Outpatient (CLI) | payer MEDICARE ==
[2018-01-05 10:51] VITALS: BP 163/89; PULSE 66; TEMP 97.7; BMI 36.0
--- NOTE | 2018-01-05 12:17 | P.HPOB ---
History of Present Illness H&P Date: 01/05/18 Chief Complaint: The patient is here for her routine gynecologic exam and mammogram. This is a 72-year-old with an LMP of 1993. The patient states she has had some left abdominal pains intermittently over the past 2 years. During the past one year they have become more frequent. They tend to be a crampy, achy or grabbing type pain. The pain can be rated at 4-8 out of 10. Currently the pain is 0 out of 10. She tends to notice this 3 or 4 times per week. Certain activities such as twisting to reach over her shoulder while in bed has caused the discomfort. She wants to make sure that this is not gynecologic in nature. She has had a colonoscopy, CT scan of the abdomen and liver ultrasound during the past year. She has also been having issues with kidney stones and had ureteral stents removed 4 to 6 weeks ago. She has noticed some pinkish discharge on her pad. She is not sure if this is from urinary leakage or from the vagina. She noticed this more when she had the ureteral stents in place. Review of Systems Weight has been stable. She denies respiratory, cardiac and G.I. problems. She denies maltreatment or problems with falling. : she has had occasional urinary leakage and is ready to wear pad. She has noticed some pinkish discharge on the pad as described in the HPI. Past Medical History Past Medical History: Asthma, COPD, GERD/Reflux, Hearing Disorder / Deafness, Hypertension, Myocardial Infarction (SC) (2017), Osteoarthritis (OA), Renal Disease (Kidney stones) Additional Past Medical History / Comment(s): COPD, nephrolithiasis and kidney stones, history of coronary artery disease with previous SC, degenerative arthritis, bilateral shoulder replacement, knee replacement, impaired hearing, acid reflux, previous urine checked infection with ESBL producing E. coli. 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 Last Myocardial Infarction Date:: 05-04-17 hfh(per pt) History of Any Multi-Drug Resistant Organisms: None Reported Date of last positivie culture/infection: 08/12/17 MDRO Source:: ESBL URINE,BLOOD Past Surgical History: Bariatric Surgery, Heart Catheterization, Joint Replacement (Hip replacement) Additional Past Surgical History / Comment(s): Shoulder bilateral shoulder replacement, left knee replacement, gastric bypass surgery, right ulnar nerve release, shock wave lithotripsy for nephrolithiasis, cardiac catheterization, cholecystectomy, cystoscopy with placement of right double-J catheter. Colonoscopy 2012. Additional Past Anesthesia/Blood Transfusion Reaction / Comment(s): "STATES WITH ULNAR RELEASE SHE WOKE UP DURING THE SURGERY AND FELT PAIN" Past Psychological History: No Psychological Hx Reported Additional Psychological History / Comment(s): Pt has a son who lives with her. She is independent. She has a cane or walker which she uses prn. She has a service dog d/t her [facility] Smoking Status: Current every day smoker (1 pack per day) Past Alcohol Use History: Occasional (Up to 1 per day) Additional Past Alcohol Use History / Comment(s): STARTED SMOKING AT AGE 20 a pack will last 3-4 days.stated drinks a shot of whisksy at bedtime daily Past Drug Use History: None Reported Additional History: She is and is not sexually active. She is unemployed. - Past Family History Sister(s) Family Medical History: Pulmonary Embolus Father Family Medical History: Cancer Additional Family Medical History / Comment(s): LIVER CANCER Medications and Allergies Home Medications Medication Instructions Recorded Confirmed Type Acetaminophen Tab [Tylenol Tab] 650 mg PO Q6H PRN 08/12/17 01/05/18 History Albuterol Inhaler [Ventolin Hfa 2 puff INHALATION RT-Q6H PRN 08/12/17 01/05/18 History Inhaler] Carvedilol [Coreg] 12.5 mg PO BID 08/12/17 01/05/18 History Clopidogrel Bisulfate [Plavix] 75 mg PO DAILY 08/12/17 01/05/18 History HYDROcodone/APAP 10-325MG [[place] 7.5 tab PO TID PRN 08/12/17 01/05/18 History 10-325] Lisinopril [Zestril] 20 mg PO DAILY 08/12/17 01/05/18 History Ertapenem [INVanz] 1 gm IVPB Q24H #12 bag 08/17/17 08/30/17 Rx Lisinopril [Zestril] mg PO DAILY 01/05/18 History Allergies Allergy/AdvReac Type Severity Reaction Status Date / Time aspirin Allergy Anaphylaxis Verified 01/05/18 10:42 NSAIDS (Non-Steroidal Allergy Anaphylaxis,ADDISON Verified 01/05/18 10:42 Anti-Inflamma -PARTHA SYNDROME paper tape Allergy welt Uncoded 01/05/18 10:42 Exam - Vital Signs Vital signs: Vital Signs Temp Pulse BP 01/05/18 10:43 97.7 F 66 163/89 Intake and Output 01/04/18 01/05/18 01/05/18 22:59 06:59 14:59 Other: Weight 104.326 kg Height 5'7", BMI 36.0. This is a well-developed well-nourished heavyset white female who is alert and oriented times 3 in no acute distress. HEENT: Within normal limits. NECK: Supple without mass or thyromegaly. CHEST AND LUNGS: Clear to auscultation. HEART: Regular rate and rhythm. BREASTS: Are without mass or discharge. AXILLARY EXAM: Negative for adenopathy. BACK: Negative for CVA tenderness. ABDOMEN: obese, soft, nontender, without palpable masses. PELVIC EXAM: Normal external genitalia with mild to moderate atrophy. Cervix and vagina appear normal mild atrophy. There is no unusual discharge. There is no evidence of blood. There is no evidence of prolapse. The uterus is midposition, nongravid size and nontender. There are no palpable adnexal masses or tenderness. Bimanual examination is somewhat limited secondary to her size. RECTAL EXAM: rectovaginal exam is negative for mass or tenderness and is negative for occult blood. EXTREMITIES: Nontender. Additional studies: CT scan of the abdomen and pelvis from 12/02/2017 did not show a definite cause for her left abdominal pain. There were some nonspecific liver findings. The uterus and adnexa were unremarkable. IMPRESSION: 1. 72-year-old menopausal female with unremarkable gynecologic exam. 2. Chronic left abdominal and left lower quadrant pain which is intermittent. There are no significant physical findings at this time. I do not believe that gynecologic cause is likely for this pain. Differential diagnosis will include G.I. pain, musculoskeletal pain, and abdominal or pelvic adhesions. 3. Possible small postmenopausal bleeding. Differential diagnosis would also include urinary incontinence with hematuria secondary to renal lithiasis or secondary to the ureteral stents that were in place open until 4 to 6 weeks ago. At this time I believe a urologic explanation is more likely than uterine bleeding based on her description. PLAN: 1. Pap smear was performed. 2. Self breast awareness was discussed. 3. Screening mammogram will be done today. 4. Pelvic ultrasound will be scheduled. We will evaluate the endometrial thickness and determine if endometrial tissue sampling is necessary after the ultrasound. 5. Osteoporosis prevention was discussed. Bone density screening will be done today. Her last one on 02/15/2012 was normal. 6. I recommended that she tried to quit smoking. We discussed several reasons for this especially with her recent history of SC. 7. She does get flu shots every fall. 8. She will return in one year and PRN.
--- NOTE | 2018-01-06 11:26 | BD ---
EXAMINATION TYPE: Axial Bone Density DATE OF EXAM: 01/05/2018 CLINICAL HISTORY: Osteoporosis screening Height: 65.5 Weight: 225 FRAX RISK QUESTIONS: Alcohol (3 or more units per day): no Family History (Parent hip fracture): no Glucocorticoids (More than 3mos): yes, inhaler (Ex: prednisone, prednisolone, methylprednisolone, dexamethasone, and hydrocortisone). History of Fracture in Adulthood: no Secondary Osteoporosis: 1. Type 1 Diabetes: no 2. Hyperthyroidism: no 3. Menopause before 45: no 4. Malnutrition: no 5. Chronic liver disease: no Rheumatoid Arthritis: no Current Tobacco Use: yes RISK FACTORS HISTORY OF: Surgery to Hip(right): yes; replacement....then adjustment due to dislocation of replacement When: 2017 Family History of Osteoporosis: yes, sisters Active: somewhat Diet low in dairy products/other sources of calcium: at least one serving a day Postmenopausal woman: yes Take estrogen and/or progesterone medications: no Lost more than 2 inches in height since high school: possibly..patient states height may have once be en about 67.5 inches Frequent falls: no Poor Health: somewhat Hyperparathyroidism: no Adrenal Insufficiency: unsure MEDICATIONS: Prednisone or other steroids: yes How Long: several years Thyroid Medications: no Osteoporosis Medications: no Additional Medications: pain meds Additional History: kidney stones & related severe infections , 2 heart attacks; back injections for pain; liver cyst with mass EXAM MEASUREMENTS: Bone mineral densitometry was performed using the [employer] System. Bone mineral density as measured about the Lumbar spine is: ----- L1-L4(G/cm2): 1.227 T Score Values are as follows: ----- L2: 0.4 ----- L3: 0.6 ----- L4: 0.4 ----- L1-L4: 0.4 Bone mineral density has: Decreased -4.2% since study of: 02/15/2012 Bone mineral density about the L hip (g/cm2): 0.896 T Score values are as follows: -----L Neck: -1.0 -----L Total: -0.9 Bone mineral density has: Decreased -11.5% since study of: 02/15/2012 IMPRESSION: Normal (Values between +1 and -1 indicate normal bone mass). Values approach osteopenia. Consider re peating this study in 5 years or sooner if there is some new clinical indication. NOTE: T-SCORE=SD OF THE YOUNG ADULT MEAN.
--- NOTE | 2018-01-06 13:17 | MM ---
Reason for exam: screening (asymptomatic). Last mammogram was performed 1 year and 2 months ago. History: Patient is postmenopausal. Physical Findings: A clinical breast exam by your physician is recommended on an annual basis and results should be correlated with mammographic findings. MG 3D Screening Mammo W/Cad Bilateral CC and MLO view(s) were taken. XCCL view(s) were taken of the right breast. Prior study comparison: November 05, 2016, bilateral MG 3d screening mammo w/cad. November 05, 2015, bilateral MG 3d screening mammo w/cad. There is a stable left upper outer quadrant retroareolar mass back to 2011. No suspicious abnormality. No significant changes when compared with prior studies. ASSESSMENT: Benign, BI-RAD 2 RECOMMENDATION: Routine screening mammogram of both breasts in 1 year.
== END | disposition home or self-care (01) ==
LOC: WWCWWP 09:28
PROVIDERS: ATTEND Obstetrics & Gynecology
DX: Z12.31 Encounter for screening mammogram for malignant neoplasm of breast (principal); Z78.0 Asymptomatic menopausal state
CPT/HCPCS: 77063; 77067; 77080

== ENCOUNTER → 2018-03-03 | Outpatient (CLI) | payer MEDICARE ==
--- NOTE | 2018-03-03 08:51 | US ---
EXAMINATION TYPE: US liver DATE OF EXAM: 03/03/2018 COMPARISON: 12/31/2017 CLINICAL HISTORY: D18.03 HEMANANGIOMA. EXAM MEASUREMENTS: Liver Length: 14.9 cm Gallbladder Wall: Surgically absent CBD: 1.3 cm Right Kidney: 10.9 x 5.6 x 5.5 cm Pancreas: Obscured by bowel gas Liver: 1.2 x 0.9 x 1.3 cm anechoic lesion without enhancement identified in left lobe. Attenuation i ndicative of fatty infiltrate Gallbladder: Surgically absent Evidence for sonographic Foreman's sign: no CBD: dilated Right Kidney: No hydronephrosis or masses seen IMPRESSION: 1. Fatty hepatic infiltration. 2. Nonspecific hepatic lesion. Follow-up CT recommended in 3-4 months.
== END | disposition home or self-care (01) ==
LOC: RADUSWWP 06:51
PROVIDERS: ATTEND Surgery
DX: K76.0 Fatty (change of) liver, not elsewhere classified (principal); K76.9 Liver disease, unspecified; D18.03 Hemangioma of intra-abdominal structures
CPT/HCPCS: 76705

== ENCOUNTER 2018-03-11 14:48 | Emergency (ER) | payer MEDICARE ==
[2018-03-11 14:56] VITALS: BP 161/89; PULSE 74; RESP 18; TEMP 98.3
--- NOTE | 2018-03-11 15:25 | ED ---
Back Pain HPI - General Chief Complaint: Back Pain/Injury Stated Complaint: Back Pain Time Seen by Provider: 03/11/18 14:59 Source: patient, RN notes reviewed Mode of arrival: wheelchair Limitations: no limitations - History of Present Illness Initial Comments: This is a 72-year-old female who presents to the emergency department with chief complaint of low back pain. Patient states that she was sitting at Dr. Dimas's office a couple of days ago filling out paperwork. She states that when her name was called she stood up from the chair and felt a sudden sharp pain in the left side of her back. She states that she had to grab the wall and had some difficulty ambulating. She states that she does normally walk with a walker but after the appointment needed help getting to her car. She states that the pain has improved since that time. She states that on the first day pain did radiate down her left leg, however pain is now just localized to the left side of her back. Patient also reports having muscle spasms. She denies saddle paresthesias or loss of bladder or bowel function. She denies numbness or tingling. She denies any falls. - Related Data Home Medications Medication Instructions Recorded Confirmed Acetaminophen Tab [Tylenol Tab] 650 mg PO Q6H PRN 08/12/17 01/05/18 Albuterol Inhaler [Ventolin Hfa 2 puff INHALATION RT-Q6H PRN 08/12/17 01/05/18 Inhaler] Carvedilol [Coreg] 12.5 mg PO BID 08/12/17 01/05/18 Clopidogrel Bisulfate [Plavix] 75 mg PO DAILY 08/12/17 01/05/18 HYDROcodone/APAP 10-325MG [[place] 7.5 tab PO TID PRN 08/12/17 01/05/18 10-325] Lisinopril [Zestril] 20 mg PO DAILY 08/12/17 01/05/18 Lisinopril [Zestril] mg PO DAILY 01/05/18 Previous Rx's Medication Instructions Recorded Ertapenem [INVanz] 1 gm IVPB Q24H #12 bag 08/17/17 Diazepam [Valium] 5 mg PO BID 2 Days #4 tab 03/11/18 Allergies Allergy/AdvReac Type Severity Reaction Status Date / Time aspirin Allergy Anaphylaxis Verified 01/05/18 10:42 NSAIDS (Non-Steroidal Allergy Anaphylaxis,ADDISON Verified 01/05/18 10:42 Anti-Inflamma -PARTHA SYNDROME tramadol [From Ultram] Allergy Anaphylaxis Verified 03/11/18 14:56 paper tape Allergy welt Uncoded 01/05/18 10:42 Review of Systems ROS Statement: Those systems with pertinent positive or pertinent negative responses have been documented in the HPI. ROS Other: All systems not noted in ROS Statement are negative. Past Medical History Past Medical History: Asthma, Coronary Artery Disease (CAD), COPD, GERD/Reflux, Hearing Disorder / Deafness, Hypertension, Myocardial Infarction ([place]), Osteoarthritis (OA), Renal Disease Additional Past Medical History / Comment(s): COPD, nephrolithiasis and kidney stones, degenerative arthritis, ESBL Last Myocardial Infarction Date:: 05-04-17 hfh(per pt) History of Any Multi-Drug Resistant Organisms: None Reported Date of last positivie culture/infection: 08/12/17 MDRO Source:: ESBL URINE,BLOOD Past Surgical History: Bariatric Surgery, Heart Catheterization, Joint Replacement Additional Past Surgical History / Comment(s): Shoulder bilateral shoulder replacement, left knee replacement, gastric bypass surgery, right ulnar nerve release, shock wave lithotripsy for nephrolithiasis, cardiac catheterization, cholecystectomy, cystoscopy with placement of right double-J catheter. Colonoscopy 2012. Additional Past Anesthesia/Blood Transfusion Reaction / Comment(s): "STATES WITH ULNAR RELEASE SHE WOKE UP DURING THE SURGERY AND FELT PAIN" Past Psychological History: No Psychological Hx Reported Smoking Status: Current every day smoker Past Alcohol Use History: Occasional Past Drug Use History: None Reported - Past Family History Sister(s) Family Medical History: Pulmonary Embolus Father Family Medical History: Cancer Additional Family Medical History / Comment(s): LIVER CANCER General Exam Limitations: no limitations General appearance: alert, in no apparent distress Head exam: Present: atraumatic, normocephalic Eye exam: Present: normal appearance, PERRL, EOMI ENT exam: Present: normal exam, normal oropharynx, mucous membranes moist Neck exam: Present: normal inspection, full ROM Respiratory exam: Present: normal lung sounds bilaterally. Absent: respiratory distress, wheezes, rales, rhonchi, stridor Cardiovascular Exam: Present: regular rate, normal rhythm, normal heart sounds Extremities exam: Present: normal inspection, full ROM, other (pedal pulses 2+ equal and palpable bilaterally). Absent: tenderness Back exam: Present: normal inspection, tenderness (left lumbar region ), muscle spasm (left lumbar ). Absent: vertebral tenderness Neurological exam: Present: alert, altered, oriented X3, CN II-XII intact Psychiatric exam: Present: normal affect, normal mood Skin exam: Present: warm, dry, intact, normal color Course Vital Signs 03/11/18 14:53 Temperature 98.3 F Pulse Rate 74 Respiratory 18 Rate Blood Pressure 161/89 O2 Sat by Pulse 95 Oximetry Medical Decision Making - Medical Decision Making This is a 72-year-old female who presents to the emergency department with chief complaint of low back pain. Patient reports going from a sitting to a standing position a couple of days ago and feeling a sudden pain in the left lumbar region. Patient also reports muscle spasms. She denies any direct trauma or falls. She states that the pain has actually improved however it has been constant. Denies saddle paresthesias or loss of bladder or bowel function. Patient is neurovascularly intact. Pain is reproducible and positional. Patient has difficulty fully standing straight as the musculature on the left lumbar region spasms. Patient does have an allergy to NSAIDs and tramadol. Case was discussed with attending physician, Dr. Arita. Patient will be started on low-dose Valium which does act as a muscle relaxer. Patient will also be recommended to apply ice and heat. MAPS was reviewed and patient is prescribed Jena, I did speak with patient regarding not taking Tylenol at the same time she is taking the Jena. Recommended follow-up lumbar x-ray or computed tomography scan if pain persists for greater than the next 5 days. This was discussed with patient who is in agreement. Vital signs are stable and she is in no acute distress. She will be discharged home at this time. All questions were answered. Disposition Clinical Impression: Strain of lumbar region Disposition: HOME SELF-CARE Condition: Good Instructions: Low Back Strain (ED), Acute Low Back Pain (ED), Lower Back Exercises (ED) Additional Instructions: If pain persists beyond the next 5 days or you develop bladder or bowel incontinence, please follow-up with your primary care provider for follow-up lumbar x-ray or computed tomography scan, as discussed. Please apply ice and/or heat frequently. Please take medications as prescribed. Please return to the emergency department if you develop new or worsening symptoms. Prescriptions: Diazepam [Valium] 5 mg PO BID 2 Days #4 tab Is patient prescribed a controlled substance at d/c from ED?: Yes When asked, does pt state using other controlled substances?: Yes If prescribed controlled substance>3 days was MAPS reviewed?: Prescribed <3 Days Referrals: Sophie Jacobson MD [Primary Care Provider] - 1-2 days Time of Disposition: 15:45
== END 2018-03-11 15:52 | disposition home or self-care (01) ==
LOC: EC 14:48
DX: S39.012A Strain of muscle, fascia and tendon of lower back, initial encounter (principal); I25.10 Atherosclerotic heart disease of native coronary artery without angina pectoris; J44.9 Chronic obstructive pulmonary disease, unspecified; H91.90 Unspecified hearing loss, unspecified ear; I10 Essential (primary) hypertension; I25.2 Old myocardial infarction; M19.90 Unspecified osteoarthritis, unspecified site; F17.200 Nicotine dependence, unspecified, uncomplicated; Z87.442 Personal history of urinary calculi; Z79.01 Long term (current) use of anticoagulants; Z79.899 Other long term (current) drug therapy; Z88.5 Allergy status to narcotic agent; Z88.6 Allergy status to analgesic agent; Z91.048 Other nonmedicinal substance allergy status; Z96.612 Presence of left artificial shoulder joint; Z96.611 Presence of right artificial shoulder joint; Z96.652 Presence of left artificial knee joint; Z95.818 Presence of other cardiac implants and grafts
CPT/HCPCS: 99283

== ENCOUNTER → 2018-03-29 | Outpatient (CLI) | payer MEDICARE ==
[2018-03-29 10:58] LABS: Basophils % (A) 1 %; Eosinophils # (A) 0.1 k/uL (0-0.7); Eosinophils % (A) 2 %; HCT 41.4 % (34.0-46.0); HGB 12.8 gm/dL (11.4-16.0); Hypochromasia Slight; Lymphocytes # (A) 1.3 k/uL (1.0-4.8); Lymphocytes % (A) 30 %; MCH 30.9 pg (25.0-35.0); MCHC 30.9 g/dL (31.0-37.0); Macrocytosis Slight; Mean Platelet Volume 6.5; Monocytes # (A) 0.3 k/uL (0-1.0); Monocytes % (A) 6 %; Neutrophils # (A) 2.5 k/uL (1.3-7.7); Neutrophils % (A) 59 %; Platelet Count 214 k/uL (150-450); RBC 4.14 m/uL (3.80-5.40); RDW 14.6 % (11.5-15.5); WBC 4.3 k/uL (3.8-10.6)
== END | disposition home or self-care (01) ==
LOC: LABWHC1 09:55
PROVIDERS: ATTEND Obstetrics & Gynecology
DX: Z01.812 Encounter for preprocedural laboratory examination (principal)
CPT/HCPCS: 36415; 85025

== ENCOUNTER 2018-04-05 06:00 | Day surgery (SDC) | payer MEDICARE ==
[2018-03-31 14:15] VITALS: BMI 37.5
--- NOTE | 2018-04-04 16:46 | P.HPOB ---
History of Present Illness H&P Date: 04/04/18 Chief Complaint: Postmenopausal bleeding Calvin is a 72-year-old female with a history of spotting for approximately 1 year. She notes that is intermittent and has never been consistent. She saw another artificial stone applicator who previously had recommended a D&C based on ultrasound showing a 0.6 cm lining. She does have multiple health concerns and we did discuss potentially doing a endometrium biopsy rather than a D&C, but she is adamant that she have an a D&C. She is counseled fully on risks and benefits of surgery including but not limited to bleeding and infection as well as potential anesthetic risks they could even potentially result in permanent injury or , as well as possibility she will need surgery down the road depending on the pathology. She was cleared by her plate straightener for this surgery. She does have acute shortness of breath on a routine basis but they believe she is stable for a D&C. All questions were answered for her prior to proceeding to the operating room. Past Medical History Past Medical History: Asthma, Coronary Artery Disease (CAD), COPD, GERD/Reflux, Hearing Disorder / Deafness, Hypertension, Myocardial Infarction ([place]), Osteoarthritis (OA), Renal Disease Additional Past Medical History / Comment(s): COPD, nephrolithiasis and kidney stones, degenerative arthritis, impaired hearing, acid reflux, previous urine checked infection with ESBL producing E. coli, vaginal spotting past year Last Myocardial Infarction Date:: 05-04-17 hfh(per pt) History of Any Multi-Drug Resistant Organisms: ESBL Date of last positivie culture/infection: 08/12/17 MDRO Source:: ESBL URINE,BLOOD Past Surgical History: Bariatric Surgery, Heart Catheterization, Joint Replacement Additional Past Surgical History / Comment(s): bilateral shoulder replacement, left knee replacement, rt hip replacement, gastric bypass surgery, right ulnar nerve release, shock wave lithotripsy for nephrolithiasis, cystoscopy with placement of right double-J catheter. Colonoscopy 2012. Past Anesthesia/Blood Transfusion Reactions: Family History of Problems w/ Anesthesia Additional Past Anesthesia/Blood Transfusion Reaction / Comment(s): "STATES WITH ULNAR RELEASE SHE WOKE UP DURING THE SURGERY AND FELT PAIN" Smoking Status: Current every day smoker - Past Family History Sister(s) Family Medical History: Pulmonary Embolus Father Family Medical History: Cancer Additional Family Medical History / Comment(s): LIVER CANCER Medications and Allergies Home Medications Medication Instructions Recorded Confirmed Type Albuterol Inhaler [Ventolin Hfa 2 puff INHALATION RT-Q6H PRN 08/12/17 03/31/18 History Inhaler] Carvedilol [Coreg] 12.5 mg PO BID 08/12/17 03/31/18 History Clopidogrel Bisulfate [Plavix] 75 mg PO DAILY 08/12/17 03/31/18 History HYDROcodone/APAP 10-325MG [[place] 1 tab PO TID PRN 08/12/17 03/31/18 History 10-325] Lisinopril [Zestril] 20 mg PO DAILY 08/12/17 03/31/18 History Allergies Allergy/AdvReac Type Severity Reaction Status Date / Time aspirin Allergy Anaphylaxis Verified 03/31/18 14:04 NSAIDS (Non-Steroidal Allergy Anaphylaxis,ADDISON Verified 03/31/18 14:04 Anti-Inflamma -PARTHA SYNDROME tramadol [From Ultram] Allergy Anaphylaxis Verified 03/31/18 14:04 paper tape Allergy welt Uncoded 03/31/18 14:04 Exam Osteopathic Statement: *. No significant issues noted on an osteopathic structural exam other than those noted in the History and Physical/Consult. - OBG Physical Exam Breast: both: normal (no masses) Abdomen: bowel sounds normal, no diffuse tenderness, no bruit present, no guarding noted, no hepatomegaly, no splenomegaly, no mass Vulva: both: normal Vagina: normal moisture, no discharge Cervix: no lesion, no discharge Uterus: normal size (Heart is regular lungs do have some wheezes bilaterally. Please see cardiology consult and clearance.), normal contour
[~2018-04-05 06:00] MED LIST changes: -HYDROmorphone 1 MG/ML 1 ML SYRINGE IVP PRN; +LIDOCAINE 1% 20 ML VIAL (10MG/ML) FOR IV START INTRADERMA PRN; +MIDAZOLAM 2 MG/2 ML VIAL IV PRN; +fentaNYL (PF) 50 MCG/ML 2 ML AMP IV PRN
[2018-04-05] MEDS ORDERED: LACTATED RINGERS 1,000 ML IV ONE (06:26)
[2018-04-05] MEDS ORDERED: LIDOCAINE 1% INJ 10MG/ML (20 ML MDV) ONE (07:22)
[2018-04-05] MEDS ORDERED: PROPOFOL 10 MG/ML 20 ML VIAL IV ONE (07:22)
[2018-04-05] MEDS ORDERED: MIDAZOLAM 2 MG/2 ML VIAL ONE (07:22)
[2018-04-05] MEDS ORDERED: SUCCINYLCHOLINE CHLORIDE 100 MG/5 ML SYR IV ONE (07:22)
--- NOTE | 2018-04-05 08:10 | P.OP ---
Date of Procedure: 04/05/18 Preoperative Diagnosis: Postmenopausal bleeding Postoperative Diagnosis: Same Procedure(s) Performed: No significant pathology noted, and minimal tissue obtained. Anesthesia: MENGA Surgeon: Chris Dimas Estimated Blood Loss (ml): 5 Pathology: other (Uterine curettings) Condition: stable Disposition: same day Operative Findings: Scant tissue obtained due to minimal endometrial presence Description of Procedure: And was taken to the operating suite where a general anesthetic was found be adequate. She was prepped and draped in the normal sterile fashion and placed in dorsal lithotomy position. Initially a speculum was inserted into the vagina and the anterior lip of the cervix was identified and grasped with a single-tooth tenaculum. Cervix was then dilated. Camera was then inserted pathologies noted. Camera was therefore removed and sharp curettings of the endometrium were obtained. All tissues collected placed on Telfa and sent to pathology for evaluation. Once at this point all instruments were removed. Sponge, lap, needle counts were all correct 2. Patient was then taken to the recovery room in stable and satisfactory condition. Plan - Discharge Summary New Discharge Prescriptions: No Action Lisinopril [Zestril] 20 mg PO DAILY Clopidogrel Bisulfate [Plavix] 75 mg PO DAILY Carvedilol [Coreg] 12.5 mg PO BID Albuterol Inhaler [Ventolin Hfa Inhaler] 2 puff INHALATION RT-Q6H PRN PRN Reason: Shortness Of Breath HYDROcodone/APAP 10-325MG [[place] 10-325] 1 tab PO TID PRN PRN Reason: Pain Discharge Medication List Albuterol Inhaler [Ventolin Hfa Inhaler] 2 puff INHALATION RT-Q6H PRN 08/12/17 [ History] Carvedilol [Coreg] 12.5 mg PO BID 08/12/17 [History] Clopidogrel Bisulfate [Plavix] 75 mg PO DAILY 08/12/17 [History] HYDROcodone/APAP 10-325MG [[place] 10-325] 1 tab PO TID PRN 08/12/17 [History] Lisinopril [Zestril] 20 mg PO DAILY 08/12/17 [History] Follow up Appointment(s)/Referral(s): Chris Dimas DO [Doctor of Osteopathic Medicine] - 1 Week Activity/Diet/Wound Care/Special Instructions: No heavy lifting and limit stairs today. Pelvic rest. Call for any high temperatures, heavy bleeding or severe pain. Expect some vaginal spotting. Discharge Disposition: HOME SELF-CARE
[2018-04-05 08:18] VITALS: TEMP 97
[2018-04-05 09:54] VITALS: BP 145/69; PULSE 66; RESP 24
== END 2018-04-05 09:14 | disposition home or self-care (01) ==
LOC: OR 06:00
PROVIDERS: ATTEND Obstetrics & Gynecology
DX: N85.8 Other specified noninflammatory disorders of uterus (principal); N95.0 Postmenopausal bleeding; J44.9 Chronic obstructive pulmonary disease, unspecified; I25.10 Atherosclerotic heart disease of native coronary artery without angina pectoris; K21.9 Gastro-esophageal reflux disease without esophagitis; I10 Essential (primary) hypertension; I25.2 Old myocardial infarction; M19.90 Unspecified osteoarthritis, unspecified site; K76.0 Fatty (change of) liver, not elsewhere classified; F17.210 Nicotine dependence, cigarettes, uncomplicated; Z96.612 Presence of left artificial shoulder joint; Z96.611 Presence of right artificial shoulder joint; Z96.652 Presence of left artificial knee joint; Z96.641 Presence of right artificial hip joint; Z98.84 Bariatric surgery status; Z79.899 Other long term (current) drug therapy; Z79.02 Long term (current) use of antithrombotics/antiplatelets; Z88.6 Allergy status to analgesic agent; Z88.5 Allergy status to narcotic agent; Z91.048 Other nonmedicinal substance allergy status; Z87.442 Personal history of urinary calculi; Z98.61 Coronary angioplasty status
CPT/HCPCS: 88305; 58558; J2250; J1100; J2405; J2001; J0330; J2704

== ENCOUNTER 2018-04-06 12:09 | Emergency (ER) | payer MEDICARE ==
[2018-04-06 12:22] VITALS: RESP 18
--- NOTE | 2018-04-06 13:20 | ED ---
General Adult HPI - General Chief complaint: Back Pain/Injury Stated complaint: Back Pain Time Seen by Provider: 04/06/18 12:47 Source: patient, EMS, RN notes reviewed, old records reviewed Mode of arrival: EMS Limitations: no limitations - History of Present Illness Initial comments: Patient 72-year-old female presents emergency room today by EMS, the chief complaint of increased lower back pain. Patient was history of chronic low back pain. She states that approximately a month ago she suffered a muscle sprain. She states that she was getting to feel better. She states she had a D &C procedure performed yesterday. She states that after procedure her back has been bothering her more. She is unsure if it's related to how she was position during procedure. Patient does admit that she has pain radiating down both left and right leg to approximately the knee area. Denies any bowel or bladder incontinence or retention. Denies any saddle anesthesia. Patient doesn't that she used [place] this morning with some relief. - Related Data Home Medications Medication Instructions Recorded Confirmed Albuterol Inhaler [Ventolin Hfa 2 puff INHALATION RT-Q6H PRN 08/12/17 03/31/18 Inhaler] Carvedilol [Coreg] 12.5 mg PO BID 08/12/17 03/31/18 Clopidogrel Bisulfate [Plavix] 75 mg PO DAILY 08/12/17 03/31/18 HYDROcodone/APAP 10-325MG [[place] 1 tab PO TID PRN 08/12/17 03/31/18 10-325] Lisinopril [Zestril] 20 mg PO DAILY 08/12/17 03/31/18 Allergies Allergy/AdvReac Type Severity Reaction Status Date / Time aspirin Allergy Anaphylaxis Verified 04/06/18 12:22 NSAIDS (Non-Steroidal Allergy Anaphylaxis,ADDISON Verified 04/06/18 12:22 Anti-Inflamma -PARTHA SYNDROME tramadol [From Ultram] Allergy Anaphylaxis Verified 04/06/18 12:22 paper tape Allergy welt Uncoded 03/31/18 14:04 Review of Systems ROS Statement: Those systems with pertinent positive or pertinent negative responses have been documented in the HPI. ROS Other: All systems not noted in ROS Statement are negative. Past Medical History Past Medical History: Asthma, Coronary Artery Disease (CAD), COPD, GERD/Reflux, Hearing Disorder / Deafness, Hypertension, Myocardial Infarction ([place]), Osteoarthritis (OA), Renal Disease Additional Past Medical History / Comment(s): COPD, nephrolithiasis and kidney stones, degenerative arthritis, ESBL Last Myocardial Infarction Date:: 05-04-17 hfh(per pt) History of Any Multi-Drug Resistant Organisms: None Reported Date of last positivie culture/infection: 08/12/17 MDRO Source:: ESBL URINE,BLOOD Past Surgical History: Bariatric Surgery, Heart Catheterization, Joint Replacement Additional Past Surgical History / Comment(s): Shoulder bilateral shoulder replacement, left knee replacement, gastric bypass surgery, right ulnar nerve release, shock wave lithotripsy for nephrolithiasis, cardiac catheterization, cholecystectomy, cystoscopy with placement of right double-J catheter. Colonoscopy 2012. Additional Past Anesthesia/Blood Transfusion Reaction / Comment(s): "STATES WITH ULNAR RELEASE SHE WOKE UP DURING THE SURGERY AND FELT PAIN" Past Psychological History: No Psychological Hx Reported Smoking Status: Current every day smoker - Past Family History Sister(s) Family Medical History: Pulmonary Embolus Father Family Medical History: Cancer Additional Family Medical History / Comment(s): LIVER CANCER General Exam - General Exam Comments Initial Comments: General: The patient is awake and alert, in no distress, and does not appear acutely ill. Eye: Pupils are equal, round and reactive to light, extra-ocular movements are intact. No nystagmus. There is normal conjunctiva bilaterally. No signs of icterus. Ears, nose, mouth and throat: There are moist mucous membranes and no oral lesions. Neck: The neck is supple. Cardiovascular: There is a regular rate and rhythm. No murmur, rub or gallop is appreciated. Respiratory: Lungs are clear to auscultation, respirations are non-labored, breath sounds are equal. No wheezes, stridor, rales, or rhonchi. Gastrointestinal: Soft, non-distended, non-tender abdomen without masses or organomegaly noted. There is no rebound or guarding present. No CVA tenderness. Musculoskeletal: Normal ROM. Normal appearance of thoracic and lumbar spine with no step-off deformity. Strength 5/5. Sensation intact. Pulses equal bilaterally 2+. Neurological: A&O x 3. CN II-XII intact, There are no obvious motor or sensory deficits. Coordination appears grossly intact. Speech is normal. Skin: Skin is warm and dry and no rashes or lesions are noted. Psychiatric: Cooperative, appropriate mood & affect, normal judgment. Limitations: no limitations Course Vital Signs 04/06/18 04/06/18 12:19 13:10 Temperature 98.0 F Pulse Rate 62 Respiratory 18 Rate Blood Pressure 113/66 O2 Sat by Pulse 88 L 93 L Oximetry Medical Decision Making - Medical Decision Making Case discussed and seen by attending detail with attending physician Patient reexamined at this time shows no signs of distress resting comfortably. Patient reexamined at this time shows no signs of distress resting comfortably in the stretcher. X-rays of abdomen obtained of the chest which was negative. X-rays of the lumbar spine show degenerative changes. Patient has pain radiating to her legs bilaterally. There is no bowel or bladder incontinence retention. No saddle anesthesia. Patient is able to freely move her legs but is having difficulty with ambulation. Patient did have a D&C yesterday. She states that she's had problems after anesthesia similar to this in the past. Patient labs are unremarkable. Options were discussed with patient about admission to hospital. Patient states that she does not want chance of having a another hospital. She states she will follow up with her pain management and family physician symptoms. Patient advised return if symptoms increase worsen. - Lab Data Result diagrams: 04/06/18 15:19 04/06/18 15:19 Lab Results 04/06/18 04/06/18 04/06/18 Range/Units 15:19 15:19 15:19 WBC 6.1 (3.8-10.6) k/uL RBC 4.04 (3.80-5.40) m/uL Hgb 12.8 (11.4-16.0) gm/dL Hct 40.6 (34.0-46.0) % MCV 100.4 H (80.0-100.0) fL MCH 31.7 (25.0-35.0) pg MCHC 31.5 (31.0-37.0) g/dL RDW 14.5 (11.5-15.5) % Plt Count 218 (150-450) k/uL Neutrophils % 62 % Lymphocytes % 29 % Monocytes % 6 % Eosinophils % 1 % Basophils % 0 % Neutrophils # 3.8 (1.3-7.7) k/uL Lymphocytes # 1.8 (1.0-4.8) k/uL Monocytes # 0.4 (0-1.0) k/uL Eosinophils # 0.1 (0-0.7) k/uL Basophils # 0.0 (0-0.2) k/uL Hypochromasia Slight Macrocytosis Slight PT (9.0-12.0) sec INR (<1.2) APTT (22.0-30.0) sec Sodium 144 (137-145) mmol/L Potassium 4.1 (3.5-5.1) mmol/L Chloride 107 (98-107) mmol/L Carbon Dioxide 27 (22-30) mmol/L Anion Gap 10 mmol/L BUN 14 (7-17) mg/dL Creatinine 0.60 (0.52-1.04) mg/dL Est GFR (CKD-EPI)AfAm >90 (>60 ml/min/1.73 sqM) Est GFR (CKD-EPI)NonAf >90 (>60 ml/min/1.73 sqM) Glucose 92 (74-99) mg/dL Calcium 9.2 (8.4-10.2) mg/dL Total Bilirubin 0.3 (0.2-1.3) mg/dL AST 32 (14-36) U/L ALT 31 (9-52) U/L Alkaline Phosphatase 62 (38-126) U/L CK-MB (CK-2) 1.6 (0.0-2.4) ng/mL Total Protein 6.1 L (6.3-8.2) g/dL Albumin 3.7 (3.5-5.0) g/dL 04/06/18 Range/Units 15:19 WBC (3.8-10.6) k/uL RBC (3.80-5.40) m/uL Hgb (11.4-16.0) gm/dL Hct (34.0-46.0) % MCV (80.0-100.0) fL MCH (25.0-35.0) pg MCHC (31.0-37.0) g/dL RDW (11.5-15.5) % Plt Count (150-450) k/uL Neutrophils % % Lymphocytes % % Monocytes % % Eosinophils % % Basophils % % Neutrophils # (1.3-7.7) k/uL Lymphocytes # (1.0-4.8) k/uL Monocytes # (0-1.0) k/uL Eosinophils # (0-0.7) k/uL Basophils # (0-0.2) k/uL Hypochromasia Macrocytosis PT 9.7 (9.0-12.0) sec INR 1.0 (<1.2) APTT 20.8 L (22.0-30.0) sec Sodium (137-145) mmol/L Potassium (3.5-5.1) mmol/L Chloride (98-107) mmol/L Carbon Dioxide (22-30) mmol/L Anion Gap mmol/L BUN (7-17) mg/dL Creatinine (0.52-1.04) mg/dL Est GFR (CKD-EPI)AfAm (>60 ml/min/1.73 sqM) Est GFR (CKD-EPI)NonAf (>60 ml/min/1.73 sqM) Glucose (74-99) mg/dL Calcium (8.4-10.2) mg/dL Total Bilirubin (0.2-1.3) mg/dL AST (14-36) U/L ALT (9-52) U/L Alkaline Phosphatase (38-126) U/L CK-MB (CK-2) (0.0-2.4) ng/mL Total Protein (6.3-8.2) g/dL Albumin (3.5-5.0) g/dL Disposition Clinical Impression: Acute low back pain Disposition: HOME SELF-CARE Condition: Good Instructions: Acute Low Back Pain (ED) Additional Instructions: Please follow family physician tomorrow. Please return to emergency room for any other concerns. Is patient prescribed a controlled substance at d/c from ED?: No Referrals: Sophie Jacobson MD [Primary Care Provider] - 1-2 days Time of Disposition: 17:25
--- NOTE | 2018-04-06 13:48 | XR ---
EXAMINATION TYPE: XR chest 2V DATE OF EXAM: 04/06/2018 COMPARISON: Prior chest 08/18/2017 HISTORY: Cough, pain TECHNIQUE: Frontal and lateral views of the chest are obtained on 3 images. FINDINGS: There is no focal air space opacity, pleural effusion, or pneumothorax seen. The cardiac silhouette size is stable, enlarged. The osseous structures are intact. Patient is status post righ t shoulder arthroplasty. Prominent lung lines could be indicative of underlying COPD. IMPRESSION: No acute cardiopulmonary process. Cardiomegaly.
--- NOTE | 2018-04-06 13:49 | XR ---
Lumbar spine HISTORY: Pain 3 views of the lumbar spine Lumbar vertebral bodies show preserved height. Anterolisthesis grade 1 L4-5, L5-S1. Loss of disc heig ht present at the intervertebral levels. There is multilevel spondylosis. Sclerotic vascular calcific ations noted incidentally. Sclerosis in the posterior elements is compatible with facet arthropathy. Bone mineralization is reduced which may limit sensitivity. IMPRESSION: Suspect degenerative disc disease, facet arthropathy, spinal listhesis. Osteopenia, addit ional findings above. Lumbar MRI may be of benefit.
[2018-04-06 15:28] LABS: Basophils % (A) 0 %; Eosinophils # (A) 0.1 k/uL (0-0.7); Eosinophils % (A) 1 %; HCT 40.6 % (34.0-46.0); HGB 12.8 gm/dL (11.4-16.0); Hypochromasia Slight; Lymphocytes # (A) 1.8 k/uL (1.0-4.8); Lymphocytes % (A) 29 %; MCH 31.7 pg (25.0-35.0); MCHC 31.5 g/dL (31.0-37.0); MCV 100.4 fL (80.0-100.0); Macrocytosis Slight; Mean Platelet Volume 6.3; Monocytes # (A) 0.4 k/uL (0-1.0); Monocytes % (A) 6 %; Neutrophils # (A) 3.8 k/uL (1.3-7.7); Neutrophils % (A) 62 %; Platelet Count 218 k/uL (150-450); RBC 4.04 m/uL (3.80-5.40); RDW 14.5 % (11.5-15.5); WBC 6.1 k/uL (3.8-10.6)
[2018-04-06 15:39] LABS: ALT 31 U/L (9-52); AST 32 U/L (14-36); Albumin 3.7 g/dL (3.5-5.0); Alkaline Phosphatase 62 U/L (38-126); Anion Gap 10 mmol/L; Blood Urea Nitrogen 14 mg/dL (7-17); Calcium 9.2 mg/dL (8.4-10.2); Carbon Dioxide 27 mmol/L (22-30); Chloride 107 mmol/L (98-107); Glucose 92 mg/dL (74-99); Potassium 4.1 mmol/L (3.5-5.1); Sodium 144 mmol/L (137-145); Total Bilirubin 0.3 mg/dL (0.2-1.3); Total Protein 6.1 g/dL (6.3-8.2)
[2018-04-06 15:52] LABS: Prothrombin Time 9.7 sec (9.0-12.0)
[2018-04-06 15:54] LABS: Partial Thromboplastin Time 20.8 sec (22.0-30.0)
[2018-04-06] MEDS ORDERED: HYDROcodone/APAP 10-325MG 1 EACH TAB PO ONE (16:07)
[2018-04-06 17:59] VITALS: BP 186/90; PULSE 65; TEMP 98.5
== END 2018-04-06 17:59 | disposition home or self-care (01) ==
LOC: EC 12:09
DX: M54.5 Low back pain (principal); J44.9 Chronic obstructive pulmonary disease, unspecified; I10 Essential (primary) hypertension; E78.5 Hyperlipidemia, unspecified; I25.10 Atherosclerotic heart disease of native coronary artery without angina pectoris; H91.90 Unspecified hearing loss, unspecified ear; I25.2 Old myocardial infarction; M19.90 Unspecified osteoarthritis, unspecified site; F17.200 Nicotine dependence, unspecified, uncomplicated; Z98.84 Bariatric surgery status; Z96.611 Presence of right artificial shoulder joint; Z96.612 Presence of left artificial shoulder joint; Z96.652 Presence of left artificial knee joint; Z98.890 Other specified postprocedural states; Z79.02 Long term (current) use of antithrombotics/antiplatelets; Z79.899 Other long term (current) drug therapy; Z88.5 Allergy status to narcotic agent; Z88.6 Allergy status to analgesic agent; Z91.048 Other nonmedicinal substance allergy status
CPT/HCPCS: 36415; 71046; 72100; 80053; 82553; 85025; 85610; 85730; 99284

== ENCOUNTER 2018-05-20 02:09 | Observation (INO) | payer MEDICARE ==
[2018-05-20 03:01] LABS: Basophils % (A) 0 %; Eosinophils # (A) 0.2 k/uL (0-0.7); Eosinophils % (A) 2 %; HCT 37.9 % (34.0-46.0); HGB 12.1 gm/dL (11.4-16.0); Hypochromasia Slight; Lymphocytes # (A) 1.4 k/uL (1.0-4.8); Lymphocytes % (A) 15 %; MCH 32.4 pg (25.0-35.0); MCHC 31.9 g/dL (31.0-37.0); MCV 101.6 fL (80.0-100.0); Macrocytosis Slight; Mean Platelet Volume 7.4; Monocytes # (A) 0.5 k/uL (0-1.0); Monocytes % (A) 5 %; Neutrophils # (A) 7.1 k/uL (1.3-7.7); Neutrophils % (A) 75 %; Platelet Count 140 k/uL (150-450); RBC 3.73 m/uL (3.80-5.40); RDW 15.6 % (11.5-15.5); WBC 9.4 k/uL (3.8-10.6)
[2018-05-20 03:06] LABS: ALT 23 U/L (9-52); AST 24 U/L (14-36); Albumin 3.6 g/dL (3.5-5.0); Alcohol 55 mg/dL; Alkaline Phosphatase 60 U/L (38-126); Anion Gap 10 mmol/L; Blood Urea Nitrogen 29 mg/dL (7-17); Calcium 9.3 mg/dL (8.4-10.2); Carbon Dioxide 24 mmol/L (22-30); Chloride 109 mmol/L (98-107); Glucose 130 mg/dL (74-99); Potassium 4.7 mmol/L (3.5-5.1); Sodium 143 mmol/L (137-145); Total Bilirubin 0.4 mg/dL (0.2-1.3); Total Protein 5.9 g/dL (6.3-8.2)
[2018-05-20] MEDS ORDERED: PANTOPRAZOLE 40 MG/10 ML VIAL IVP STA (03:25)
--- NOTE | 2018-05-20 03:35 | XR ---
EXAMINATION TYPE: XR chest 1V portable DATE OF EXAM: 05/20/2018 COMPARISON: 04/06/2018 HISTORY: COPD. Asthma TECHNIQUE: Single frontal view of the chest is obtained. FINDINGS: Heart and mediastinum are normal. Lungs are clear. Diaphragm is normal. There are chest le ads. Costophrenic angles are clear. There is bilateral shoulder prosthesis. IMPRESSION: No active cardiopulmonary disease. No change. Normal heart.
[2018-05-20] MEDS ORDERED: ONDANSETRON 4 MG/2 ML VIAL IVP STA (04:06)
[2018-05-20] MEDS ORDERED: HYDROcodone/APAP 5-325MG 1 EACH TAB PO STA (04:07)
[2018-05-20] MEDS ORDERED: NALOXONE 0.4 MG/ML 1 ML VIAL IV PRN (04:20)
[2018-05-20] MEDS ORDERED: ONDANSETRON 4 MG/2 ML VIAL IVP PRN (04:20)
--- NOTE | 2018-05-20 04:20 | ED ---
GI Bleed HPI - General Chief complaint: GI Bleed Stated complaint: Vomiting Blood Time Seen by Provider: 05/20/18 03:03 Source: patient Mode of arrival: ambulatory Limitations: no limitations - History of Present Illness MD complaint: coffee ground emesis -: hour(s) Radiation: none Quality: burning Consistency: now resolved Improves with: none Worsens with: none Associated Symptoms: denies other symptoms - Related Data Home Medications Medication Instructions Recorded Confirmed Carvedilol [Coreg] 12.5 mg PO BID 08/12/17 05/20/18 Clopidogrel Bisulfate [Plavix] 75 mg PO DAILY 08/12/17 05/20/18 Lisinopril [Zestril] 30 mg PO DAILY 08/12/17 05/20/18 Albuterol Sulfate [Proair Hfa] 2 inhalation INHALATION Q6HR PRN 05/20/18 Atorvastatin [Lipitor] 40 mg PO DAILY 05/20/18 05/20/18 Fluticasone/Vilanterol [Breo 1 inhalation INHALATION DAILY 05/20/18 05/20/18 Ellipta 100-25 Mcg Inhaler] HYDROcodone/APAP 7.5-325MG [[place] 1 tablet PO TID 05/20/18 05/20/18 7.5-325] Allergies Allergy/AdvReac Type Severity Reaction Status Date / Time aspirin Allergy Anaphylaxis Verified 05/20/18 04:44 NSAIDS (Non-Steroidal Allergy Anaphylaxis,ADDISON Verified 05/20/18 04:44 Anti-Inflamma -PARTHA SYNDROME tramadol [From Ultram] Allergy Anaphylaxis Verified 05/20/18 04:44 paper tape Allergy welt Uncoded 05/20/18 04:44 Review of Systems ROS Statement: Those systems with pertinent positive or pertinent negative responses have been documented in the HPI. ROS Other: All systems not noted in ROS Statement are negative. Constitutional: Denies: fever, chills Respiratory: Denies: cough, dyspnea Cardiovascular: Denies: chest pain, palpitations, edema Gastrointestinal: Reports: nausea, vomiting, hematemesis. Denies: abdominal pain, diarrhea, melena, hematochezia Genitourinary: Denies: dysuria, hematuria Musculoskeletal: Denies: back pain Skin: Denies: rash Neurological: Denies: headache, weakness, numbness Hematological/Lymphatic: Denies: easy bleeding Past Medical History Past Medical History: Asthma, Coronary Artery Disease (CAD), COPD, GERD/Reflux, Hearing Disorder / Deafness, Hypertension, Myocardial Infarction ([place]), Osteoarthritis (OA), Renal Disease Additional Past Medical History / Comment(s): COPD, nephrolithiasis and kidney stones, degenerative arthritis, ESBL Last Myocardial Infarction Date:: 05-04-17 hfh(per pt) History of Any Multi-Drug Resistant Organisms: None Reported Date of last positivie culture/infection: 08/12/17 MDRO Source:: ESBL URINE,BLOOD Past Surgical History: Bariatric Surgery, Heart Catheterization, Joint Replacement Additional Past Surgical History / Comment(s): Shoulder bilateral shoulder replacement, left knee replacement, gastric bypass surgery, right ulnar nerve release, shock wave lithotripsy for nephrolithiasis, cardiac catheterization, cholecystectomy, cystoscopy with placement of right double-J catheter. Colonoscopy 2012. Myocitic syndrome Additional Past Anesthesia/Blood Transfusion Reaction / Comment(s): "STATES WITH ULNAR RELEASE SHE WOKE UP DURING THE SURGERY AND FELT PAIN" Past Psychological History: No Psychological Hx Reported Smoking Status: Current every day smoker Past Alcohol Use History: Occasional Past Drug Use History: None Reported - Past Family History Sister(s) Family Medical History: Pulmonary Embolus Father Family Medical History: Cancer Additional Family Medical History / Comment(s): LIVER CANCER General Exam Limitations: no limitations General appearance: alert, in no apparent distress, obese Head exam: Present: atraumatic, normocephalic Eye exam: Present: normal appearance. Absent: scleral icterus, conjunctival injection ENT exam: Present: normal oropharynx Neck exam: Present: normal inspection Respiratory exam: Present: normal lung sounds bilaterally. Absent: respiratory distress, wheezes, rales, rhonchi, stridor Cardiovascular Exam: Present: normal rhythm, tachycardia (rate 104), normal heart sounds. Absent: systolic murmur, diastolic murmur, rubs, gallop GI/Abdominal exam: Present: soft. Absent: distended, tenderness, guarding, rebound, mass Extremities exam: Present: normal inspection, normal capillary refill. Absent: pedal edema, calf tenderness Back exam: Present: normal inspection. Absent: CVA tenderness (R), CVA tenderness (L) Neurological exam: Present: alert Skin exam: Present: warm, dry, intact, normal color. Absent: rash Course Vital Signs 05/20/18 05/20/18 05/20/18 02:21 03:38 04:45 Temperature 97.9 F 97.3 F L Pulse Rate 109 H 96 103 H Respiratory 20 18 18 Rate Blood Pressure 96/63 140/96 133/59 O2 Sat by Pulse 92 L 97 95 Oximetry Medical Decision Making - Lab Data Result diagrams: 05/20/18 02:47 05/20/18 02:47 Lab Results 05/20/18 05/20/18 05/20/18 Range/Units 02:47 02:47 03:12 WBC 9.4 (3.8-10.6) k/uL RBC 3.73 L (3.80-5.40) m/uL Hgb 12.1 (11.4-16.0) gm/dL Hct 37.9 (34.0-46.0) % MCV 101.6 H (80.0-100.0) fL MCH 32.4 (25.0-35.0) pg MCHC 31.9 (31.0-37.0) g/dL RDW 15.6 H (11.5-15.5) % Plt Count 140 L (150-450) k/uL Neutrophils % 75 % Lymphocytes % 15 % Monocytes % 5 % Eosinophils % 2 % Basophils % 0 % Neutrophils # 7.1 (1.3-7.7) k/uL Lymphocytes # 1.4 (1.0-4.8) k/uL Monocytes # 0.5 (0-1.0) k/uL Eosinophils # 0.2 (0-0.7) k/uL Basophils # 0.0 (0-0.2) k/uL Hypochromasia Slight Macrocytosis Slight Sodium 143 (137-145) mmol/L Potassium 4.7 (3.5-5.1) mmol/L Chloride 109 H (98-107) mmol/L Carbon Dioxide 24 (22-30) mmol/L Anion Gap 10 mmol/L BUN 29 H (7-17) mg/dL Creatinine 0.56 (0.52-1.04) mg/dL Est GFR (CKD-EPI)AfAm >90 (>60 ml/min/1.73 sqM) Est GFR (CKD-EPI)NonAf >90 (>60 ml/min/1.73 sqM) Glucose 130 H (74-99) mg/dL Calcium 9.3 (8.4-10.2) mg/dL Total Bilirubin 0.4 (0.2-1.3) mg/dL AST 24 (14-36) U/L ALT 23 (9-52) U/L Alkaline Phosphatase 60 (38-126) U/L Total Protein 5.9 L (6.3-8.2) g/dL Albumin 3.6 (3.5-5.0) g/dL Serum Alcohol 55 mg/dL Blood Type A Positive Blood Type Confirm Blood Type Recheck CABO Indicated Antibody Screen NEGATIVE Spec Expiration Date 05/23/2018 - 231105/20/18 Range/Units 03:56 WBC (3.8-10.6) k/uL RBC (3.80-5.40) m/uL Hgb (11.4-16.0) gm/dL Hct (34.0-46.0) % MCV (80.0-100.0) fL MCH (25.0-35.0) pg MCHC (31.0-37.0) g/dL RDW (11.5-15.5) % Plt Count (150-450) k/uL Neutrophils % % Lymphocytes % % Monocytes % % Eosinophils % % Basophils % % Neutrophils # (1.3-7.7) k/uL Lymphocytes # (1.0-4.8) k/uL Monocytes # (0-1.0) k/uL Eosinophils # (0-0.7) k/uL Basophils # (0-0.2) k/uL Hypochromasia Macrocytosis Sodium (137-145) mmol/L Potassium (3.5-5.1) mmol/L Chloride (98-107) mmol/L Carbon Dioxide (22-30) mmol/L Anion Gap mmol/L BUN (7-17) mg/dL Creatinine (0.52-1.04) mg/dL Est GFR (CKD-EPI)AfAm (>60 ml/min/1.73 sqM) Est GFR (CKD-EPI)NonAf (>60 ml/min/1.73 sqM) Glucose (74-99) mg/dL Calcium (8.4-10.2) mg/dL Total Bilirubin (0.2-1.3) mg/dL AST (14-36) U/L ALT (9-52) U/L Alkaline Phosphatase (38-126) U/L Total Protein (6.3-8.2) g/dL Albumin (3.5-5.0) g/dL Serum Alcohol mg/dL Blood Type Blood Type Confirm A Positive Blood Type Recheck Antibody Screen Spec Expiration Date - EKG Data -: EKG Interpreted by Me EKG shows normal: sinus rhythm, axis (Normal), intervals (Normal), QRS complexes (Normal) Rate: tachycardia (rate 102) Interpretation: nonspecific ST-T wave changes Disposition Clinical Impression: Upper gastrointestinal hemorrhage Disposition: ADMITTED IP TO THIS HOSP Condition: Fair Is patient prescribed a controlled substance at d/c from ED?: No
[2018-05-20] MEDS ORDERED: HYDROcodone/APAP 10-325MG 1 EACH TAB PO PRN (04:24)
[2018-05-20] MEDS ORDERED: ALBUTEROL NEBULIZED 2.5 MG/3 ML INHALATION PRN (04:24)
[2018-05-20] MEDS: SODIUM CHLORIDE 0.9% 1,000 ML IV SCH ×3 (04:59→21:44)
[2018-05-20] MEDS: SYMBICORT 160-4.5 MCG INHALER INHALATION SCH ×2 (07:53→20:22)
[2018-05-20] MEDS: LISINOPRIL 20 MG TAB PO SCH (08:50)
[2018-05-20] MEDS: CARVEDILOL 12.5 MG TAB PO SCH ×2 (08:50→17:37)
[2018-05-20] MEDS: PANTOPRAZOLE 40 MG/10 ML VIAL IV SCH (08:51)
[2018-05-20] MEDS: ACETAMINOPHEN IV (For NPO) 1,000 MG in EMPTY BAG 1 BAG IVPB PRN ×2 (08:51→15:20)
[2018-05-20] MEDS ORDERED: LISINOPRIL 20 MG TAB PO SCH (09:00)
[2018-05-20 10:29] LABS: INR 1.1 (<1.2); Prothrombin Time 10.8 sec (9.0-12.0)
--- NOTE | 2018-05-20 11:51 | P.CONS ---
History of Present Illness - Reason for Consult Consult date: 05/20/18 Hematemesis Requesting physician: Raiza Carballo - Chief Complaint Hematemesis - History of Present Illness 72-year-old female patient Dr. Jacobson with a past medical history of asthma, CAD maintained on Plavix, [place], GERD, COPD, daily alcohol intake admitted with mixed coffee-ground red hematemesis. Patient vomited blood twice 2 days ago as well as last night prior to admission. No further hematemesis since admission. She drinks a few shots of whiskey every night to help her sleep. No aspirin or NSAIDs. Denies melena or hematochezia. No history of peptic ulcer disease or EGD. Last colonoscopy to her memory about 18 months ago he polyps removed. No PPI or H2 antagonist daily takes omeprazole as needed. Admission he will and 12.1 previously 12.8 in March. MCV 101 platelet 140. INR 1.1. BUN 29. Creatinine 0.5. Serum alcohol 55. Review of Systems Constitutional: Denies fever, chills, sweats, weight gain, or loss. HEENT: Negative for migraines, blurred vision or loss, earaches, drainage, tinnitus, oral mucosal lesions, dysphagia, or odynophagia. CARDIAC: Negative for chest pain, arrhythmias, or palpitation. RESPIRATORY: Negative for shortness of breath, hemoptysis, cough, or sputum production. GI: See HPI for pertinent findings. : Negative for hematuria, urgency, frequency, polyuria, or dysuria. GYNc: Denies possibility of . Negative vaginal discharge. MUSCULOSKELETAL: Negative for muscle aches, swelling, arthritis, and arthralgias. NEUROLOGIC: Negative for stroke or TIA. ENDOCRINE: Negative for thyroid problems. SKIN: Negative for rash or itching. PSYCHIATRIC: Negative history for depression and anxiety Past Medical History Past Medical History: Asthma, Coronary Artery Disease (CAD), COPD, GERD/Reflux, Hearing Disorder / Deafness, Hypertension, Myocardial Infarction ([place]), Osteoarthritis (OA), Renal Disease Additional Past Medical History / Comment(s): COPD, nephrolithiasis and kidney stones, degenerative arthritis, ESBL Last Myocardial Infarction Date:: 05-04-17 hfh(per pt) History of Any Multi-Drug Resistant Organisms: None Reported Year Discovered:: 08/12/17 MDRO Source:: ESBL URINE,BLOOD Past Surgical History: Bariatric Surgery, Heart Catheterization, Joint Replacement Additional Past Surgical History / Comment(s): Shoulder bilateral shoulder replacement, left knee replacement, gastric bypass surgery, right ulnar nerve release, shock wave lithotripsy for nephrolithiasis, cardiac catheterization, cholecystectomy, cystoscopy with placement of right double-J catheter. Colonoscopy 2012. Myocitic syndrome Additional Past Anesthesia/Blood Transfusion Reaction / Comm: "STATES WITH ULNAR RELEASE SHE WOKE UP DURING THE SURGERY AND FELT PAIN" Past Psychological History: No Psychological Hx Reported Additional Psychological History / Comment(s): Pt has a son who lives with her. She is independent. She has a cane or walker which she uses prn. She has a service dog d/t her [facility] Smoking Status: Current every day smoker Past Alcohol Use History: Occasional Additional Past Alcohol Use History / Comment(s): STARTED SMOKING AT AGE 20 a pack will last 3-4 days.stated drinks a shot of whisksy at bedtime daily Past Drug Use History: None Reported - Past Family History Sister(s) Family Medical History: Pulmonary Embolus Father Family Medical History: Cancer Additional Family Medical History / Comment(s): LIVER CANCER Medications and Allergies Home Medications Medication Instructions Recorded Confirmed Type Carvedilol [Coreg] 12.5 mg PO BID 08/12/17 05/20/18 History Clopidogrel Bisulfate [Plavix] 75 mg PO DAILY 08/12/17 05/20/18 History Lisinopril [Zestril] 30 mg PO DAILY 08/12/17 05/20/18 History Albuterol Sulfate [Proair Hfa] 2 puff INHALATION RT-Q6H PRN 05/20/18 05/20/18 History Atorvastatin [Lipitor] 40 mg PO DAILY 05/20/18 05/20/18 History Fluticasone/Vilanterol [Breo 1 puff INHALATION RT-DAILY 05/20/18 05/20/18 History Ellipta 100-25 Mcg Inhaler] HYDROcodone/APAP 7.5-325MG [[place] 1 tab PO TID PRN 05/20/18 05/20/18 History 7.5-325] Allergies Allergy/AdvReac Type Severity Reaction Status Date / Time aspirin Allergy Anaphylaxis Verified 05/20/18 07:49 NSAIDS (Non-Steroidal Allergy Anaphylaxis,ADDISON Verified 05/20/18 07:49 Anti-Inflamma -PARTHA SYNDROME tramadol [From Ultram] Allergy Anaphylaxis Verified 05/20/18 07:49 paper tape Allergy welt Uncoded 05/20/18 04:44 Physical Exam Vitals: Vital Signs Temp Pulse Pulse Resp BP BP Pulse Ox 05/20/18 08:02 88 05/20/18 07:52 92 92 L 05/20/18 05:45 97.8 F 94 20 134/83 97 05/20/18 04:45 97.3 F L 103 H 18 133/59 95 05/20/18 03:38 96 18 140/96 97 05/20/18 02:21 97.9 F 109 H 20 96/63 92 L Intake and Output 05/19/18 05/20/18 05/20/18 22:59 06:59 14:59 Intake Total 0 Balance 0 Intake: Oral 0 Other: # Voids 1 Weight 103.419 kg General appearance: The patient is alert, oriented, in no acute distress. HET: Head is normocephalic and atraumatic. Pupils are equal and reactive. Oropharynx is clear without lesions. Neck: Supple without lymphadenopathy. Trachea midline. Heart: S1 S2. Regular rate and rhythm. Lungs: No crackles or wheezes are heard. Abdomen: Soft, mild midepigastric tenderness, nondistended with bowel sounds. No peritoneal signs. No palpable organomegaly or masses. Extremities: Normal skin color and turgor. No cyanosis, rash, ulceration, clubbing, or edema. Radial and pedal pulses are 2/4 bilaterally. Neurological: No focal deficits. Strength and sensation are grossly intact. Results CBC & Chem 7: 05/20/18 02:47 05/20/18 02:47 Labs: Abnormal Lab Results - Last 24 Hours (Table) 05/20/18 05/20/18 Range/Units 02:47 02:47 RBC 3.73 L (3.80-5.40) m/uL MCV 101.6 H (80.0-100.0) fL RDW 15.6 H (11.5-15.5) % Plt Count 140 L (150-450) k/uL Chloride 109 H (98-107) mmol/L BUN 29 H (7-17) mg/dL Glucose 130 H (74-99) mg/dL Total Protein 5.9 L (6.3-8.2) g/dL Assessment and Plan (1) Hematemesis Narrative/Plan: 72 year old female admitted with 2 day history of acute hematemesis next coffee- ground red in color with underlying history of GERD, CAD maintained on Plavix with daily alcohol intake shots of whiskey every night for insomnia. Possible esophagitis gastritis and duodenitis possible peptic ulcer disease possible esophageal varices. Current Visit: Yes Status: Acute Code(s): K92.0 - HEMATEMESIS SNOMED Code( s): 4934504 Plan: 1. Protonix 40 mg IV twice daily. CBC monitoring. EGD evaluation. Alcohol abstinence was advised. The [employer] criminal [employer] has discussed the risks, benefits and alternative therapies for the above-mentioned procedure and for both sedation/analgesia as well as necessary blood product administration, if indicated, as they pertain to this patient. The patient has indicated understanding and acceptance of the risks and procedures discussed. Thank you for this kind referral and the opportunity to participate in the care of your patient. This consultation was discussed with Dr. Sterling. The impression and plan of care have been directed as dictated.
[2018-05-20] MEDS ORDERED: ALBUTEROL INHALER 60 PUFF/8 GM INHALER INHALATION PRN (12:37)
--- NOTE | 2018-05-20 15:17 | P.HPIM ---
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 Does drink alcohol for pain sometimes. Patient was unable to see because of which she had a shift to shots of hard liquor to go to sleep and woke up throwing up blood minimal blood hemoglobin is 12 at this time. Patient denied any NSAID use denied any hematochezia or melena. Patient will undergo upper GI endoscopy later today patient was started on proton pump inhibitor. Patient denied any fever chills abdominal pain dysuria. Review of Systems REVIEW OF SYSTEMS: CONSTITUTIONAL: No fever, no malaise, no fatigue. HEENT: No recent visual problems or hearing problems. Denied any sore throat. CARDIOVASCULAR: No chest pain, orthopnea, PND, no palpitations, no syncope. PULMONARY: No shortness of breath, no cough, no hemoptysis. GASTROINTESTINAL: As mentioned in HPI NEUROLOGICAL: No headaches, no weakness, no numbness. HEMATOLOGICAL: Denies any bleeding or petechiae. GENITOURINARY: Denies any burning micturition, frequency, or urgency. MUSCULOSKELETAL/RHEUMATOLOGICAL: Denies any joint pain, swelling, or any muscle pain. ENDOCRINE: Denies any polyuria or polydipsia. The rest of the 14-point review of systems is negative. Past Medical History Past Medical History: Asthma, Coronary Artery Disease (CAD), COPD, GERD/Reflux, Hearing Disorder / Deafness, Hypertension, Myocardial Infarction ([place]), Osteoarthritis ([place]), Renal Disease Additional Past Medical History / Comment(s): COPD, nephrolithiasis and kidney stones, degenerative arthritis, ESBL Last Myocardial Infarction Date:: 05-04-17 hfh(per pt) History of Any Multi-Drug Resistant Organisms: None Reported Date of last positivie culture/infection: 08/12/17 MDRO Source:: ESBL URINE,BLOOD Past Surgical History: Bariatric Surgery, Heart Catheterization, Joint Replacement Additional Past Surgical History / Comment(s): Shoulder bilateral shoulder replacement, left knee replacement, gastric bypass surgery, right ulnar nerve release, shock wave lithotripsy for nephrolithiasis, cardiac catheterization, cholecystectomy, cystoscopy with placement of right double-J catheter. Colonoscopy 2012. Myocitic syndrome Additional Past Anesthesia/Blood Transfusion Reaction / Comment(s): "STATES WITH ULNAR RELEASE SHE WOKE UP DURING THE SURGERY AND FELT PAIN" Past Psychological History: No Psychological Hx Reported Additional Psychological History / Comment(s): Pt has a son who lives with her. She is independent. She has a cane or walker which she uses prn. She has a service dog d/t her [place] [employer] Smoking Status: Current every day smoker Past Alcohol Use History: Occasional Additional Past Alcohol Use History / Comment(s): STARTED SMOKING AT AGE 20 a pack will last 3-4 days.stated drinks a shot of whisksy at bedtime daily Past Drug Use History: None Reported - Past Family History Sister(s) Family Medical History: Pulmonary Embolus Father Family Medical History: Cancer Additional Family Medical History / Comment(s): LIVER CANCER Medications and Allergies Home Medications Medication Instructions Recorded Confirmed Type Carvedilol [Coreg] 12.5 mg PO BID 08/12/17 05/20/18 History Clopidogrel Bisulfate [Plavix] 75 mg PO DAILY 08/12/17 05/20/18 History Lisinopril [Zestril] 30 mg PO DAILY 08/12/17 05/20/18 History Albuterol Sulfate [Proair Hfa] 2 puff INHALATION RT-Q6H PRN 05/20/18 05/20/18 History Atorvastatin [Lipitor] 40 mg PO DAILY 05/20/18 05/20/18 History Fluticasone/Vilanterol [Breo 1 puff INHALATION RT-DAILY 05/20/18 05/20/18 History Ellipta 100-25 Mcg Inhaler] HYDROcodone/APAP 7.5-325MG [[place] 1 tab PO TID PRN 05/20/18 05/20/18 History 7.5-325] Omeprazole [PriLOSEC] 40 mg PO AC-BID #30 capsule. 05/20/18 Rx Allergies Allergy/AdvReac Type Severity Reaction Status Date / Time aspirin Allergy Anaphylaxis Verified 05/20/18 07:49 NSAIDS (Non-Steroidal Allergy Anaphylaxis,ADDISON Verified 05/20/18 07:49 Anti-Inflamma -PARTHA SYNDROME tramadol [From Ultram] Allergy Anaphylaxis Verified 05/20/18 07:49 paper tape Allergy welt Uncoded 05/20/18 04:44 Physical Exam Vitals: Vital Signs Temp Pulse Pulse Resp BP BP Pulse Ox 05/20/18 08:02 88 05/20/18 07:52 92 92 L 05/20/18 05:45 97.8 F 94 20 134/83 97 05/20/18 04:45 97.3 F L 103 H 18 133/59 95 05/20/18 03:38 96 18 140/96 97 05/20/18 02:21 97.9 F 109 H 20 96/63 92 L Intake and Output 05/20/18 05/20/18 05/20/18 06:59 14:59 22:59 Intake Total 0 Balance 0 Intake: Oral 0 Other: # Voids 1 Weight 103.419 kg PHYSICAL EXAMINATION: GENERAL: The patient is alert and oriented x3, not in any acute distress. Well developed, well nourished. HEENT: Pupils are round and equally reacting to light. EOMI. No scleral icterus. No conjunctival pallor. Normocephalic, atraumatic. No pharyngeal erythema. No thyromegaly. CARDIOVASCULAR: S1 and S2 present. No murmurs, rubs, or gallops. PULMONARY: Chest is clear to auscultation, no wheezing or crackles. ABDOMEN: Soft, nontender, nondistended, normoactive bowel sounds. No palpable organomegaly. MUSCULOSKELETAL: No joint swelling or deformity. EXTREMITIES: No cyanosis, clubbing, or pedal edema. NEUROLOGICAL: Gross neurological examination did not reveal any focal deficits. SKIN: No rashes. Results CBC & Chem 7: 05/20/18 02:47 05/20/18 02:47 Labs: Abnormal Lab Results - Last 24 Hours (Table) 05/20/18 05/20/18 Range/Units 02:47 02:47 RBC 3.73 L (3.80-5.40) m/uL MCV 101.6 H (80.0-100.0) fL RDW 15.6 H (11.5-15.5) % Plt Count 140 L (150-450) k/uL Chloride 109 H (98-107) mmol/L BUN 29 H (7-17) mg/dL Glucose 130 H (74-99) mg/dL Total Protein 5.9 L (6.3-8.2) g/dL Thrombosis Risk Factor Assmnt - Choose All That Apply Any of the Below Risk Factors Present?: Yes Each Factor Represents 1 point: Abnormal pulmonary function (COPD), Acute [place], Obesity (BMI >25) Other Risk Factors: Yes Each Risk Factor Represents 2 Points: Age 61-74 years Other congenital or acquired thrombophilia - If yes, enter type in comment: No Thrombosis Risk Factor Assessment Total Risk Factor Score: 5 Thrombosis Risk Factor Assessment Level: High Risk Assessment and Plan Plan: -Acute upper GI bleed probably secondary to peptic acid disease alcohol cessation counseling was provided secondary to alcoholism. Patient was started on Protonix. -Coronary artery disease: Other medications will be continued antiplatelet therapy will be held temporarily because of acute GI upper GI bleed after endoscopy will decide on restarting this medication -Hypertension -COPD without any acute exacerbation although patient is bit hypoxic patient will be continued on inhaled steroids patient will be started on albuterol ipratropium nebulization we'll reassess her if he can he is to be short of breath will need systemic steroids.
[2018-05-20] MEDS ORDERED: HYDROcodone/APAP 7.5-325MG 1 EACH TAB PO SCH (16:00)
[2018-05-20] MEDS: IPRATROPIUM-ALBUTEROL 3 ML NEB INHALATION SCH ×2 (16:32→20:22)
[2018-05-20] MEDS ORDERED: PROPOFOL 10 MG/ML 20 ML VIAL IV ONE (18:45)
[2018-05-20] MEDS ORDERED: LIDOCAINE 1% INJ 10MG/ML (20 ML MDV) ONE (18:45)
[2018-05-20] MEDS ORDERED: IV FLUID CONTINUATION 1,000 ML IV ONE (18:49)
--- NOTE | 2018-05-20 19:30 | P.PCN ---
Date of Procedure: 05/20/18 Procedure(s) Performed: Procedure: Esophagogastroduodenoscopy. Preoperative diagnosis: Upper GI bleeding. Postoperative diagnosis: S/P gastric bypass surgery with no obvious bleeding or potential source of upper GI bleeding. Preparation and sedation: Was provided by anesthesia. Brief clinical history: The patient is a 72-year-old female with a past medical history of asthma, CAD maintained on Plavix, [place], GERD, COPD, daily alcohol intake admitted with mixed coffee-ground/red hematemesis. Patient vomited blood twice 2 days ago as well as last night prior to admission. No further hematemesis since admission. She drinks a few shots of whiskey every night to help her sleep. No aspirin or NSAIDs. Denies melena or hematochezia. No history of peptic ulcer disease or prior EGD. Her last colonoscopy about 18 months ago. Not on PPI or H2 antagonist daily, but takes omeprazole as needed. Her admission Hb 12.1 was 12.8 in March. MCV 101 platelet 140. INR 1.1. BUN 29. Creatinine 0.5. Serum alcohol 55. Other details are summarized in the history and physical and dictated consultation. Procedure: With the patient on her left lateral decubitus position and after informed consent and adequate sedation, I passed the Olympus-GIF 160 video upper endoscope through the cricopharyngeus down the esophagus. The esophagus appeared healthy with no obvious erosions, ulcers, mucosal tears or varices. The endoscope was then advanced into what appeared to be a gastric remnant. Patient had prior bariatric surgery. The area of the anastomosis with the small bowel appeared healthy so did the small bowel. No obvious abnormalities or sources of potential bleeding were noted in the gastric remnant. All secretions encountered were clear in color. The patient tolerated the procedure well. Plan: The patient was reassured. It is possible that she had a superficial mucosal tear or other superficial pathology secondary to her drinking and vomiting that spontaneously healed. Will allow clear liquids and monitor her blood counts and advance her diet as tolerated. I will discuss with you and follow with you with interest.
[2018-05-20] MEDS: HYDROcodone/APAP 7.5-325MG 1 EACH TAB PO PRN (21:44)
[2018-05-21] MEDS: SODIUM CHLORIDE 0.9% 1,000 ML IV SCH ×2 (06:15→12:12)
[2018-05-21 06:31] VITALS: BP 120/64; RESP 16; TEMP 97
[2018-05-21] MEDS ORDERED: NON-FORMULARY DRUG (Fluticasone/Vilanterol [Breo Ellipta 100-25 Mcg Inhaler] 1 PUFF) INHALATION SCH (08:00)
[2018-05-21 08:41] LABS: Basophils % (A) 0 %; Eosinophils # (A) 0.1 k/uL (0-0.7); Eosinophils % (A) 1 %; HCT 27.2 % (34.0-46.0); Lymphocytes % (A) 40 %; MCH 32.9 pg (25.0-35.0); MCHC 32.5 g/dL (31.0-37.0); MCV 101.2 fL (80.0-100.0); Macrocytosis Slight; Mean Platelet Volume 6.6; Monocytes # (A) 0.3 k/uL (0-1.0); Monocytes % (A) 6 %; Neutrophils # (A) 2.5 k/uL (1.3-7.7); Neutrophils % (A) 50 %; Platelet Count 190 k/uL (150-450); RBC 2.69 m/uL (3.80-5.40)
[2018-05-21 08:44] LABS: HGB 8.9 gm/dL (11.4-16.0)
[2018-05-21] MEDS: CARVEDILOL 12.5 MG TAB PO SCH (08:49)
[2018-05-21] MEDS: PANTOPRAZOLE 40 MG/10 ML VIAL IV SCH (08:49)
[2018-05-21] MEDS: LISINOPRIL 20 MG TAB PO SCH (08:49)
[2018-05-21] MEDS: HYDROcodone/APAP 7.5-325MG 1 EACH TAB PO PRN (08:55)
[2018-05-21] MEDS ORDERED: ATORVASTATIN 40 MG TAB PO SCH (09:00)
[2018-05-21] MEDS: SYMBICORT 160-4.5 MCG INHALER INHALATION SCH (09:02)
[2018-05-21] MEDS: IPRATROPIUM-ALBUTEROL 3 ML NEB INHALATION SCH ×2 (09:02→11:57)
[2018-05-21 12:11] VITALS: PULSE 79
--- NOTE | 2018-05-21 16:45 | P.DS ---
Providers Date of admission: 05/20/18 04:24 Attending physician: Raiza Carballo Consults: 05/20/18 04:22 Consult Physician Routine Consulting Provider: Sobia Lima Consult Reason/Comments: Hematemesis Do you want consulting provider notified?: Yes Primary care physician: Sophie Jacobson Hospital Course: was admitted secondary to hematemesis and underwent upper GI endoscopy which showed some mucosal tears from vomiting, no active bleeding, hemoglobin did drop from her previous hematemesis no symptoms of dark stools or hematemesis anymore.. Patient was advised to quit alcohol and patient will be discharged today. Will be resumed on her Plavix PHYSICAL EXAMINATION: GENERAL: The patient is alert and oriented x3, not in any acute distress. Well developed, well nourished. HEENT: Pupils are round and equally reacting to light. EOMI. No scleral icterus. No conjunctival pallor. Normocephalic, atraumatic. No pharyngeal erythema. No thyromegaly. CARDIOVASCULAR: S1 and S2 present. No murmurs, rubs, or gallops. PULMONARY: Chest is clear to auscultation, no wheezing or crackles. ABDOMEN: Soft, nontender, nondistended, normoactive bowel sounds. No palpable organomegaly. MUSCULOSKELETAL: No joint swelling or deformity. EXTREMITIES: No cyanosis, clubbing, or pedal edema. NEUROLOGICAL: Gross neurological examination did not reveal any focal deficits. SKIN: No rashes. For other chronic medical problems and hospitalization course please refer to my HPI from yesterday Patient Condition at Discharge: Fair Plan - Discharge Summary Discharge Rx Participant: No New Discharge Prescriptions: New Omeprazole [PriLOSEC] 40 mg PO AC-BID #30 capsule. Zolpidem Tartrate [Ambien] 5 mg PO HS PRN 3 Days #3 tab PRN Reason: Insomnia No Action Lisinopril [Zestril] 30 mg PO DAILY Clopidogrel Bisulfate [Plavix] 75 mg PO DAILY Carvedilol [Coreg] 12.5 mg PO BID HYDROcodone/APAP 7.5-325MG [[place] 7.5-325] 1 tab PO TID PRN PRN Reason: Pain Atorvastatin [Lipitor] 40 mg PO DAILY Albuterol Sulfate [Proair Hfa] 2 puff INHALATION RT-Q6H PRN PRN Reason: Shortness Of Breath Fluticasone/Vilanterol [Breo Ellipta 100-25 Mcg Inhaler] 1 puff INHALATION RT -DAILY Discharge Medication List Carvedilol [Coreg] 12.5 mg PO BID 08/12/17 [History] Clopidogrel Bisulfate [Plavix] 75 mg PO DAILY 08/12/17 [History] Lisinopril [Zestril] 30 mg PO DAILY 08/12/17 [History] Albuterol Sulfate [Proair Hfa] 2 puff INHALATION RT-Q6H PRN 05/20/18 [History] Atorvastatin [Lipitor] 40 mg PO DAILY 05/20/18 [History] Fluticasone/Vilanterol [Breo Ellipta 100-25 Mcg Inhaler] 1 puff INHALATION RT- DAILY 05/20/18 [History] HYDROcodone/APAP 7.5-325MG [[place] 7.5-325] 1 tab PO TID PRN 05/20/18 [History] Omeprazole [PriLOSEC] 40 mg PO AC-BID #30 capsule.dr 05/20/18 [Rx] Zolpidem Tartrate [Ambien] 5 mg PO HS PRN 3 Days #3 tab 05/21/18 [Rx] Follow up Appointment(s)/Referral(s): Jimbo Sterling MD [STAFF PHYSICIAN] - 1 Week Sophie Jacobson MD [Primary Care Provider] - 05/24/18 9:45 am Patient Instructions/Handouts: Gastrointestinal Bleeding (DC) Activity/Diet/Wound Care/Special Instructions: Cardiac diet. Activity as tolerated. No smoking, cessation information provided. Discharge Disposition: HOME SELF-CARE
== END 2018-05-21 14:32 | disposition home or self-care (01) ==
LOC: EC 02:09 → 4MS4W 04:24
PROVIDERS: ADMIT Hospitalist; ATTEND Hospitalist
DX: K92.0 Hematemesis (principal); J44.9 Chronic obstructive pulmonary disease, unspecified; I25.10 Atherosclerotic heart disease of native coronary artery without angina pectoris; K21.9 Gastro-esophageal reflux disease without esophagitis; I10 Essential (primary) hypertension; R09.02 Hypoxemia; K30 Functional dyspepsia; F10.20 Alcohol dependence, uncomplicated; I25.2 Old myocardial infarction; M19.90 Unspecified osteoarthritis, unspecified site; H91.90 Unspecified hearing loss, unspecified ear; F17.210 Nicotine dependence, cigarettes, uncomplicated; Z87.442 Personal history of urinary calculi; Z79.899 Other long term (current) drug therapy; Z79.02 Long term (current) use of antithrombotics/antiplatelets; Z88.6 Allergy status to analgesic agent; Z88.5 Allergy status to narcotic agent; Z88.8 Allergy status to other drugs, medicaments and biological substances; Z91.048 Other nonmedicinal substance allergy status; Z98.84 Bariatric surgery status; Z90.49 Acquired absence of other specified parts of digestive tract; Z80.0 Family history of malignant neoplasm of digestive organs; Z82.49 Family history of ischemic heart disease and other diseases of the circulatory system; E66.9 Obesity, unspecified; Z68.35 Body mass index [BMI] 35.0-35.9, adult; Y90.2 Blood alcohol level of 40-59 mg/100 ml
CPT/HCPCS: 96374 ×2; 96375 ×3; 96376; 99285; 36415; 94640 ×4; 94760; 93005; 86900; 86901; 80053; 82607; 85025 ×2; 85610; 86850; 71045; 43235; G0378 ×2; G0480; J2405; J2001; J0131; J2704; C9113 ×2; 80320

== ENCOUNTER → 2018-09-01 | Outpatient (CLI) | payer MEDICARE ==
--- NOTE | 2018-09-02 15:42 | MR ---
EXAMINATION TYPE: MR cervical spine wo con DATE OF EXAM: 09/01/2018 COMPARISON: 08/30/2014 HISTORY: Spinal stenosis, cervical TECHNIQUE: Multiplanar, multisequence images of the cervical spine were acquired without intravenous contrast. The cervical spine vertebral bodies maintain normal vertebral body heights. There is grade 1 retrolis thesis of C5 on C6 with a posterior disc osteophyte complex at this level. Multilevel disc desiccatio n is seen. Bone marrow signal is within normal limits. Visualized portions of posterior fossa are unr emarkable. No prevertebral soft tissue swelling is evident. There is T2 hyperintensity at C5-C6 as se en on the prior of 08/30/2014, slightly progressed relating to focal myelomalacia. C2-C3: There is a very small central disc osteophyte complex with uncovertebral hypertrophy and facet arthropathy creating mild left neural foraminal narrowing. Right neuroforamen and spinal canal are p atent. This is new from the prior. C3-C4: There is uncovertebral hypertrophy and facet arthropathy creating mild left neural foraminal n arrowing. Broad-based disc bulge is seen. No spinal canal stenosis nor right neural foraminal narrowi ng. Findings are new from the prior. C4-C5: There is a small broad-based disc bulge, uncovertebral hypertrophy and facet arthropathy creat ing mild left neural foraminal narrowing and slightly narrowing the ventral subarachnoid space withou t impression upon the ventral cervical cord. No evidence of spinal canal stenosis or right neural elizabeth rowing. Findings are similar to the prior. C5-C6: There is progression of degenerative disc disease with new left paracentral disc herniation davies perimposed upon a broad-based disc bulge with uncovertebral hypertrophy and facet arthropathy again c reating moderate spinal canal stenosis and resulting in progression of myelomalacia although this aga in is focal and remains overall mild in degree. There is also ligamentum flavum buckling contributing to this moderate spinal canal stenosis as well as severe left and moderate right neural foraminal na rrowing. C6-C7: There is a broad-based disc bulge, uncovertebral hypertrophy and facet arthropathy creating mi ld bilateral neural foraminal narrowing without significant spinal canal stenosis. Similar to the prior. C7-T1: No evidence for degenerative disc disease. No disc bulge/herniation or protrusion. No Canal stenosis. Foramina are patent bilaterally. IMPRESSION: 1. Progression of degenerative disc disease with a new focal disc herniation at C5-C6 and combination with retrolisthesis, ligamentum flavum buckling, facet arthropathy and uncovertebral hypertrophy cre ating progressive focal myelomalacia at C5-C6 in comparison to the prior. 2. Multilevel degenerative disc disease as described above has also progressed at multiple levels in comparison the prior. No additional disc herniations.
== END | disposition home or self-care (01) ==
LOC: RADMRIMAIN 13:25
PROVIDERS: ATTEND Psychiatry & Neurology Neurology
DX: M50.222 Other cervical disc displacement at C5-C6 level (principal); M50.322 Other cervical disc degeneration at C5-C6 level; M46.92 Unspecified inflammatory spondylopathy, cervical region; G95.89 Other specified diseases of spinal cord
CPT/HCPCS: 72141

== ENCOUNTER → 2019-05-12 | Outpatient (CLI) | payer MEDICARE ==
--- NOTE | 2019-05-12 15:36 | XR ---
EXAM TYPE: LUMBAR SPINE X RAY SERIES COMPARISON: NONE HISTORY: Pain TECHNIQUE: 7 views are submitted routine flexion and extension lateral views. FINDINGS: Multilevel hypertrophic and degenerative disc disease with facet arthropathy. Grade 1 anterolisthesis L4 on L5 and L5-S1. Findings are stable in flexion and extension. Multilevel facet arthropathy noted . Vascular calcifications noted. IMPRESSION: 1. Multilevel degenerative disc disease with anterolisthesis of L4-5 and L5-S1.
== END | disposition home or self-care (01) ==
LOC: RADXRMAIN 14:49
PROVIDERS: ATTEND Physical Medicine & Rehabilitation
DX: M51.36 Other intervertebral disc degeneration, lumbar region (principal); M51.37 Other intervertebral disc degeneration, lumbosacral region; M43.16 Spondylolisthesis, lumbar region; M43.17 Spondylolisthesis, lumbosacral region
CPT/HCPCS: 72114

== ENCOUNTER → 2019-06-22 | Outpatient (CLI) | payer MEDICARE ==
--- NOTE | 2019-06-22 12:04 | MR ---
EXAMINATION TYPE: MR lumbar spine wo con DATE OF EXAM: 06/22/2019 11:55 AM COMPARISON: March 09, 2015 HISTORY: Low back pain Multiplanar, MultiSpin echo imaging of the lumbar spine was performed. L1-L2: Mild disc desiccation. Posterior disc bulge. Mild effacement ventral thecal sac. No evidence f or herniation protrusion or central stenosis. Foramina are patent bilaterally. L2-L3: Mild disc desiccation. Posterior disc bulge. Mild effacement ventral thecal sac. No evidence f or herniation protrusion or central stenosis. Foramina are patent bilaterally. L3-L4: Moderate disc desiccation noted. Moderate sequential disc bulge greatest posteriorly with effa cement ventral thecal sac. There is bilateral lateral recess stenosis. No central stenosis. Bilateral foraminal encroachment with facet joint arthropathy. Findings have mildly progressed since prior exa mination at this level. L4-L5: Mild disc desiccation. Posterior disc bulge. Mild effacement ventral thecal sac. No evidence f or herniation protrusion or central stenosis. Foramina are patent bilaterally. L5-S1: Moderate disc desiccation. Posterior disc bulge. No herniation protrusion or central stenosis. Foramina are patent bilaterally. Lumbar segments are intact. Bone marrow signal intensity remains heterogenous. Correlate with CBC. N o paraspinal masses are identified. Conus medullaris has a normal appearance. S2 Tarlov cyst remain stable. IMPRESSION: 1. Bone marrow signal intensity remains heterogenous. Correlate with CBC. 2. Multilevel degenerative disc disease with disc bulging greatest at L3-4 where there is bilateral l ateral recess stenosis.
== END ==
LOC: RADMRIMAIN 11:14
PROVIDERS: ATTEND Physical Medicine & Rehabilitation
DX: M48.061 Spinal stenosis, lumbar region without neurogenic claudication (principal); M51.26 Other intervertebral disc displacement, lumbar region
CPT/HCPCS: 72148

== ENCOUNTER → 2019-07-18 | Outpatient (CLI) | payer MEDICARE ==
--- NOTE | 2019-07-18 21:34 | CT ---
EXAMINATION TYPE: CT abdomen pelvis wo/w con DATE OF EXAM: 07/18/2019 COMPARISON: 12/02/2017 HISTORY: Lower abdominal pain and hematuria. CT DLP: 2620.9 mGycm CONTRAST: CT scan of the abdomen and pelvis is performed with Oral Contrast and without and with IV Contrast, p atient injected with 100ml mL of Isovue 300. FINDINGS: LUNG BASES-: No visible nodule. No infiltrate. LIVER/GB: Gallbladder surgically absent. No space occupying hepatic lesion. Biliary tree is of nor mal caliber. PANCREAS: No inflammation. No distinct mass. SPLEEN: No splenic enlargement. No lesion seen. ADRENALS: No nodule. No thickening. KIDNEYS/BLADDER: No hydronephrosis. No nephrolithiasis. No distinct solid renal mass. There are 4 small subcentimeter renal cysts noted bilaterally. Urinary bladder grossly unremarkable. BOWEL: Normal appendix. Normal bowel caliber. No inflammation. GENITAL ORGANS: No gross abnormality. LYMPH NODES: No greater than 1cm abdominal or pelvic lymph nodes are appreciated. AORTA: No significant abnormality. OSSEOUS STRUCTURES: Right hip prosthesis is in place. OTHER: Small fat-containing umbilical hernia. Small fat-containing ventral hernia. IMPRESSION: 1. Small renal cortical cysts. No evidence of hydronephrosis or nephrolithiasis at this time. 2. Small fat-containing ventral and umbilical hernias.
== END ==
LOC: RADCTMAIN 16:09
PROVIDERS: ATTEND Urology
DX: N28.1 Cyst of kidney, acquired (principal); K42.9 Umbilical hernia without obstruction or gangrene
CPT/HCPCS: 82565; 84520; 74178; 36415; Q9967

== ENCOUNTER → 2019-08-22 | Day surgery (SDC) | payer MEDICARE ==
[2019-08-17 15:26] VITALS: BMI 39.2
[~2019-08-22] MED LIST changes: -DEXAMETHASONE SOD PHOSPHATE 10 MG/ML 1 ML VIAL IV ONE; -LACTATED RINGERS 1,000 ML IV SCH; -LIDOCAINE 1% 20 ML VIAL (10MG/ML) FOR IV START INTRADERMA PRN; +LIDOCAINE 1% INJ 10MG/ML (20 ML MDV) ONE; +LIDOCAINE 1% INJ 10MG/ML (20 ML MDV) SQ ONE; -MIDAZOLAM 2 MG/2 ML VIAL IV PRN; -ONDANSETRON 4 MG/2 ML VIAL IVP ONE; -Pre Op ABX Message 1 EACH MISC MISCELLANE ONE; +SODIUM CHLORIDE 0.9% 1,000 ML IV SCH; +SODIUM CHLORIDE 0.9% 500 ML 500 ML IV ONE; -fentaNYL (PF) 50 MCG/ML 2 ML AMP IV PRN; +fentaNYL (PF) 50 MCG/ML 2 ML AMP ONE
--- NOTE | 2019-08-22 12:32 | P.PCN ---
Preoperative Diagnosis: Loop monitor implant Primary care physician: Helio Infrastructure Engineer: Dr. Chanel Operators: Dr. Chanel and Kateryna Blackman PA-C Indication: Recurrent presyncope, paroxysmal atrial fibrillation Patient was brought to the EP lab in a fasting state. Written informed consent was obtained prior to the procedure. The left pectoral area was prepped and draped per protocol. Intravenous antibiotic was administered preoperatively. A subcutaneous Loop monitor was implanted successfully and the wound was closed per protocol. The device was programmed to detect significant william- arrhythmic and tachy-arrhythmic events, per protocol. Device and programming details: Programmed A. fib protocol
--- NOTE | 2019-08-22 12:35 | P.PCN ---
Preoperative Diagnosis: Diagnosis: A. fib Patient underwent EP procedure under conscious sedation/moderate sedation under Dr. Chanel's supervision, monitoring of the level of consciousness and physiologic parameters including but not limited to vital signs and oxygenation. Patient tolerated the procedure well without any acute complications. Start time: 1205 Stop time: 1220
--- NOTE | 2019-08-22 12:40 | P.PRLE ---
RE: Ladonna Bryson Dear Dr. Helio Dougherty underwent implantation of loop monitor for diagnosis and management of any atrial fibrillation I will keep posted if he to detect atrial fibrillation Thank you for entrusting me with the care of the patient Warm regards Sincerely Param Chanel
[2019-08-22 12:52] VITALS: PULSE 70
[2019-08-22 13:17] VITALS: BP 186/92; RESP 18; TEMP 68
== END | disposition home or self-care (01) ==
LOC: CATHEP 10:18
PROVIDERS: ATTEND Internal Medicine Clinical Cardiac Electrophysiology
DX: I48.0 Paroxysmal atrial fibrillation (principal); I42.0 Dilated cardiomyopathy; I10 Essential (primary) hypertension; F17.210 Nicotine dependence, cigarettes, uncomplicated; J44.9 Chronic obstructive pulmonary disease, unspecified; I77.89 Other specified disorders of arteries and arterioles; E78.5 Hyperlipidemia, unspecified; R06.09 Other forms of dyspnea; R60.0 Localized edema; R32 Unspecified urinary incontinence; E66.3 Overweight; Z68.38 Body mass index [BMI] 38.0-38.9, adult; I89.0 Lymphedema, not elsewhere classified; Z90.49 Acquired absence of other specified parts of digestive tract; Z98.890 Other specified postprocedural states; Z79.899 Other long term (current) drug therapy; Z79.02 Long term (current) use of antithrombotics/antiplatelets; Z79.51 Long term (current) use of inhaled steroids
CPT/HCPCS: 33285; C1764; J0690; J2001

== ENCOUNTER → 2022-03-11 | Outpatient (CLI) | payer MEDICARE ==
--- NOTE | 2022-03-11 16:00 | NM ---
EXAMINATION TYPE: NM bone 3 phase, NM bone SPECT DATE OF EXAM: 03/11/2022 COMPARISON: CT 07/18/2019 HISTORY: M 79.81, Z 96.651 Triple phase bone scintigraphy was performed following the injection of 24.4 mCi Tc 99m MDP. Immedia te images and 5 hours post injection images acquired over the pelvis. FINDINGS: Symmetric uptake is noted at the level of the pelvis on blood flow images. On blood pool im aging, some mild increased uptake is present posteriorly on the right at the lateral aspect of the ex am, mild soft tissue uptake is noted on delayed images at this level. Uptake appears to be elliptical within the soft tissues. Photopenic area at the right hip may represent prior hip arthroplasty, nehal elate. No evident fracture or dislocation. Abnormal fluid collection is noted within the soft tissues laterally the level of the right hip on pr ior CT, axial images #75 through 91 There is no significant abnormal accumulation of radiotracer to suggest metastatic disease to the bon e or other significant abnormality. IMPRESSION: Findings are thought likely to represent a remote hematoma, possible dystrophic calcification, hetero topic new bone formation, chronic
== END | disposition home or self-care (01) ==
LOC: RADNMMAIN 06:41
PROVIDERS: ATTEND Orthopaedic Surgery
DX: M79.81 Nontraumatic hematoma of soft tissue (principal); Z96.651 Presence of right artificial knee joint
CPT/HCPCS: 78315; 78803; A9503

== ENCOUNTER → 2024-02-04 | Outpatient (CLI) | payer MEDICARE, OTHER ==
--- NOTE | 2024-02-09 14:32 | CT ---
EXAMINATION TYPE: CT chest wo con DATE OF EXAM: 02/04/2024 COMPARISON: None HISTORY: cough, SOB CT DLP: 497.[address] of the chest was performed with lung and mediastinal window settings submitted. The la ck of contrast limits evaluation of the vascular, mediastinal and parenchymal structures including th e upper abdomen. LUNGS: Parenchymal scarring right lung base The lungs are clear and free of infiltrate. No atelectasi s. No pulmonary nodule or mass is detected. No pleural effusion. No CT evidence of interstitial caroline ng disease. MEDIASTINUM/CYNTHIA: Thoracic aorta is of normal caliber with limited evaluation given lack of contrast . The heart is not enlarged. No evidence for mediastinal mass. No lymph nodes greater than 1cm. UPPER ABDOMEN: No significant abnormality is seen. OTHER: No significant other abnormality. IMPRESSION: 1. Parenchymal scarring right lung base
== END | disposition home or self-care (01) ==
LOC: RADCTMAIN 13:47
PROVIDERS: ATTEND Internal Medicine
DX: R91.8 Other nonspecific abnormal finding of lung field (principal); J98.4 Other disorders of lung
CPT/HCPCS: 71250

== ENCOUNTER 2024-05-26 03:42 | Observation (INO) | payer MEDICARE, OTHER ==
[2024-05-26 03:58] LABS: Basophils % (A) 0 %; Eosinophils # (A) 0.1 k/uL (0-0.7); Eosinophils % (A) 1 %; HCT 31.4 % (34.0-46.0); HGB 9.7 gm/dL (11.4-16.0); Hypochromasia Marked; Lymphocytes # (A) 0.9 k/uL (1.0-4.8); Lymphocytes % (A) 7 %; MCH 28.4 pg (25.0-35.0); MCV 91.8 fL (80.0-100.0); Mean Platelet Volume 6.6; Monocytes # (A) 0.7 k/uL (0-1.0); Monocytes % (A) 6 %; Neutrophils % (A) 85 %; Platelet Count 307 k/uL (150-450); RBC 3.42 m/uL (3.80-5.40); RDW 15.1 % (11.5-15.5); WBC 12.9 k/uL (3.8-10.6)
[2024-05-26] MEDS: SODIUM CHLORIDE 0.9% 500 ML 500 ML IV ONE (04:06)
[2024-05-26] MEDS: methylPREDNISolone SOD SUCCI 125 MG/2 ML VIAL IV STA (04:06)
[2024-05-26] MEDS: ACETAMINOPHEN TAB 500 MG TAB PO STA (04:14)
[2024-05-26 04:16] LABS: ALT 19 U/L (4-34); AST 32 U/L (14-36); African American GFR (CKD) >90 (>60 ml/min/1.73 sqM); Albumin 3.5 g/dL (3.5-5.0); Alkaline Phosphatase 75 U/L (38-126); Anion Gap 2 mmol/L; Blood Urea Nitrogen 28 mg/dL (7-17); Calcium 8.8 mg/dL (8.4-10.2); Carbon Dioxide 35 mmol/L (22-30); Chloride 101 mmol/L (98-107); Glucose 129 mg/dL (74-99); Non-African American GFR(CKD) 88 (>60 ml/min/1.73 sqM); Potassium 3.8 mmol/L (3.5-5.1); Sodium 138 mmol/L (137-145); Total Bilirubin 0.6 mg/dL (0.2-1.3)
[2024-05-26 04:22] LABS: INR 1.2 (<1.2); Partial Thromboplastin Time 31.3 sec (22.0-30.0); Prothrombin Time 12.5 sec (10.0-12.5)
--- NOTE | 2024-05-26 04:56 | XR ---
EXAMINATION TYPE: XR chest 1V portable DATE OF EXAM: 05/26/2024 COMPARISON: CT chest February 04, 2024 HISTORY: Cough and fever TECHNIQUE: Single frontal view of the chest is obtained. FINDINGS: There is no suspicious new focal air space opacity, pleural effusion, or pneumothorax seen . Cardiomegaly redemonstrated. Overlying loop recorder now seen. Surgical change of bilateral shoulde rs partially imaged similar to prior. Surgical change to the cervical spine partially imaged. IMPRESSION: Cardiomegaly without acute pulmonary process. [facility], , 05/26/2024 4:54 AM
[2024-05-26] MEDS ORDERED: NALOXONE 0.4 MG/ML 1 ML VIAL IVP PRN (06:13)
[2024-05-26] MEDS ORDERED: IPRATROPIUM-ALBUTEROL 3 ML NEB INHALATION PRN (06:13)
[2024-05-26] MEDS ORDERED: ACETAMINOPHEN TAB 325 MG TAB PO PRN (06:13)
--- NOTE | 2024-05-26 06:19 | ED ---
General Adult HPI - General Chief complaint: Shortness of Breath Stated complaint: SOB Time Seen by Provider: 05/26/24 03:46 Source: patient, EMS, RN notes reviewed, old records reviewed Mode of arrival: EMS Limitations: no limitations - History of Present Illness Initial comments: 78-year-old female presenting from [facility] with fever, increased dyspnea. Patient has noted a productive cough which she states is chronic but reported as worsening. No central chest pain. Patient was febrile at the time of transfer. She had increased oxygen requirement, typically wears 4 L required 6 L during transport to maintain oxygen above 90%. Patient is bedbound. Denies lower extremity pain or swelling. Denies abdominal pain nausea or vomiting. - Related Data Home Medications Medication Instructions Recorded Confirmed Clopidogrel Bisulfate [Plavix] 75 mg PO DAILY 08/12/17 08/22/19 carvediloL [Coreg] 12.5 mg PO BID 08/12/17 08/22/19 lisinopriL [Zestril] 30 mg PO DAILY 08/12/17 08/22/19 Atorvastatin [Lipitor] 40 mg PO DAILY 05/20/18 08/22/19 HYDROcodone/APAP 7.5-325MG [[place] 1 tab PO QID 05/20/18 08/22/19 7.5-325] Albuterol Nebulized [Ventolin 2.5 mg INHALATION Q4H PRN 08/17/19 08/17/19 Nebulized] Baclofen [Lioresal] 10 mg PO TID 08/17/19 08/22/19 Estradiol Cream [Estrace Cream 1 gm VAGINAL NIETO 08/17/19 08/22/19 0.01%] Mirabegron [Myrbetriq] 25 mg PO DAILY 08/17/19 08/22/19 Pantoprazole [Protonix] 40 mg PO DAILY 08/17/19 08/22/19 Trimethoprim [Trimpex] 100 mg PO DAILY 08/17/19 08/22/19 traZODone HCL [Desyrel] 100 mg PO HS 08/17/19 08/22/19 Allergies Allergy/AdvReac Type Severity Reaction Status Date / Time aspirin Allergy Anaphylaxis Verified 05/26/24 03:49 NSAIDS (Non-Steroidal Allergy Anaphylaxis,ADDISON Verified 05/26/24 03:49 Anti-Inflamma -PARTHA SYNDROME tramadol [From Ultram] Allergy Anaphylaxis Verified 05/26/24 03:49 paper tape Allergy welt Uncoded 05/26/24 03:49 Review of Systems ROS Statement: Those systems with pertinent positive or pertinent negative responses have been documented in the HPI. ROS Other: All systems not noted in ROS Statement are negative. Past Medical History Past Medical History: Asthma, Coronary Artery Disease (CAD), COPD, GERD/Reflux, Hearing Disorder / Deafness, Hypertension, Myocardial Infarction (DC), Osteoarthritis (OA), Renal Disease Additional Past Medical History / Comment(s): COPD, nephrolithiasis and kidney stones, degenerative arthritis, ESBL Last Myocardial Infarction Date:: 05-04-17 [facility](per pt) History of Any Multi-Drug Resistant Organisms: None Reported Date of last positivie culture/infection: 08/12/17 MDRO Source:: ESBL URINE,BLOOD Past Surgical History: Bariatric Surgery, Heart Catheterization, Joint Replacement Additional Past Surgical History / Comment(s): Shoulder bilateral shoulder replacement, left knee replacement, gastric bypass surgery, right ulnar nerve release, shock wave lithotripsy for nephrolithiasis, cardiac catheterization, cholecystectomy, cystoscopy with placement of right double-J catheter. Colonoscopy 2012. Myocitic syndrome Past Anesthesia/Blood Transfusion Reactions: No Reported Reaction, Previous Problems w/ Anesthesia Additional Past Anesthesia/Blood Transfusion Reaction / Comment(s): "STATES WITH ULNAR RELEASE SHE WOKE UP DURING THE SURGERY AND FELT PAIN" Past Psychological History: No Psychological Hx Reported Smoking Status: Never smoker Past Alcohol Use History: Occasional Past Drug Use History: None Reported - Past Family History Sister(s) Family Medical History: Pulmonary Embolus Father Family Medical History: Cancer Additional Family Medical History / Comment(s): LIVER CANCER General Exam Limitations: no limitations General appearance: alert, in no apparent distress Head exam: Present: atraumatic, normocephalic Eye exam: Present: normal appearance, PERRL Neck exam: Present: normal inspection. Absent: tenderness Respiratory exam: Present: wheezes, rhonchi, decreased breath sounds. Absent: respiratory distress Cardiovascular Exam: Present: normal rhythm, tachycardia GI/Abdominal exam: Present: soft. Absent: distended, tenderness, guarding Extremities exam: Absent: pedal edema, calf tenderness Neurological exam: Present: alert, oriented X3 Psychiatric exam: Present: normal affect, normal mood Skin exam: Present: warm Course Vital Signs 05/26/24 05/26/24 03:43 05:05 Temperature 99.9 F H Pulse Rate 121 H 86 Respiratory 28 H 24 Rate Blood Pressure 132/77 103/64 O2 Sat by Pulse 90 L 96 Oximetry Medical Decision Making - Medical Decision Making Was pt. sent in by a medical professional or institution ([facility]OS[facility] Phipps, POLISHING WHEEL REPAIRER, urgent care, hospital, or residential...) When possible be specific @ -[No] Did you speak to anyone other than the patient for history (EMS, parent, family, police, friend...)? What history was obtained from this source @ -[No] Did you review nursing and triage notes (agree or disagree)? Why? @ -[I reviewed and agree with nursing and triage notes] Were old charts reviewed (outside hosp., previous admission, EMS record, old EKG, old radiological studies, urgent care reports/EKG's, residential records)? Report findings @ -[No old charts were reviewed] Differential Dyspnea: Coronary syndrome, arrhythmia, tamponade, asthma, COPD, pulmonary embolism, pneumonia, pneumothorax, pulmonary effusion, anaphylaxis, diabetic ketoacidosis, flailed chest, pulmonary contusion, diaphragmatic rupture, anemia, neuromuscular, this is not meant to be an all-inclusive list. EKG interpreted by me (3pts min.). @Sinus tachycardia rate of [address] segment elevation MA interval 116, QRS duration 85, QTc 384 X-rays interpreted by me (1pt min.). @ -Chest x-ray concerning for developing infiltrate. CT interpreted by me (1pt min.). @ -[None done] U/S interpreted by me (1pt. min.). @ -[None done] What testing was considered but not performed or refused? (CT, X-rays, U/S, labs)? Why? @ -[None] What meds were considered but not given or refused? Why? @ -[None] Did you discuss the management of the patient with other professionals (professionals i.e. JOSH Phipps, POLISHING WHEEL REPAIRER, lab, RT, psych nurse, social services technician, microstrategy bi developer, teacher, tank officer, case packer)? Give summary @ -[No] Was smoking cessation discussed for >3mins.? @ -[No] Was critical care preformed (if so, how long)? @ -[No] Were there social determinants of health that impacted care today? How? (Homelessness, low income, unemployed, alcoholism, drug addiction, transportation, low edu. Level, literacy, decrease access to med. care, half-way, rehab)? @ -[No] Was there de-escalation of care discussed even if they declined (Discuss DNR or withdrawal of care, Hospice)? DNR status @ -[No] What co-morbidities impacted this encounter? (DM, HTN, Smoking, COPD, CAD, Cancer, CVA, ARF, Chemo, Hep., AIDS, mental health diagnosis, sleep apnea, morbid obesity)? @ -COPD. Was patient admitted / discharged? Hospital course, mention meds given and route, prescriptions, significant lab abnormalities, going to OR and other pertinent info. @78-year-old female with COPD presenting with fever, increased dyspnea and productive cough. Patient has elevated heart rate and increased oxygen requirement as well as a leukocytosis. She is given albuterol, Atrovent, steroids and started on IV antibiotics in the emergency department. [facility]. Undiagnosed new problem with uncertain prognosis? @ -[No] Drug Therapy requiring intensive monitoring for toxicity (Heparin, Nitro, Insulin, Cardizem)? @ -[No] Were any procedures done? @ -[No] Diagnosis/symptom? @COPD exacerbation, pneumonia Acute, or Chronic, or Acute on Chronic? @Acute Uncomplicated (without systemic symptoms) or Complicated (systemic symptoms)? @ -[default] Side effects of treatment? @ -[No] Exacerbation, Progression, or Severe Exacerbation? @ -[No] Poses a threat to life or bodily function? How? (Chest pain, USA, DC, pneumonia, PE, COPD, DKA, ARF, appy, cholecystitis, CVA, Diverticulitis, Homicidal, Suicidal, threat to staff... and all critical care pts) @yes, sepsis, pneumonia, respiratory failure - Lab Data Result diagrams: 05/26/24 03:50 05/26/24 03:50 Lab Results 05/26/24 05/26/24 05/26/24 Range/Units 03:50 03:50 03:50 WBC 12.9 H (3.8-10.6) k/uL RBC 3.42 L (3.80-5.40) m/uL Hgb 9.7 L (11.4-16.0) gm/dL Hct 31.4 L (34.0-46.0) % MCV 91.8 (80.0-100.0) fL MCH 28.4 (25.0-35.0) pg MCHC 31.0 (31.0-37.0) g/dL RDW 15.1 (11.5-15.5) % Plt Count 307 (150-450) k/uL MPV 6.6 Neutrophils % 85 % Lymphocytes % 7 % Monocytes % 6 % Eosinophils % 1 % Basophils % 0 % Neutrophils # 11.0 H (1.3-7.7) k/uL Lymphocytes # 0.9 L (1.0-4.8) k/uL Monocytes # 0.7 (0-1.0) k/uL Eosinophils # 0.1 (0-0.7) k/uL Basophils # 0.0 (0-0.2) k/uL Hypochromasia Marked PT 12.5 (10.0-12.5) sec INR 1.2 H (<1.2) APTT 31.3 H (22.0-30.0) sec Sodium 138 (137-145) mmol/L Potassium 3.8 (3.5-5.1) mmol/L Chloride 101 (98-107) mmol/L Carbon Dioxide 35 H (22-30) mmol/L Anion Gap 2 mmol/L BUN 28 H (7-17) mg/dL Creatinine 0.58 (0.52-1.04) mg/dL Est GFR (CKD-EPI)AfAm >90 (>60 ml/min/1.73 sqM) Est GFR (CKD-EPI)NonAf 88 (>60 ml/min/1.73 sqM) Glucose 129 H (74-99) mg/dL Plasma Lactic Acid Dennis (0.7-2.0) mmol/L Calcium 8.8 (8.4-10.2) mg/dL Total Bilirubin 0.6 (0.2-1.3) mg/dL AST 32 (14-36) U/L ALT 19 (4-34) U/L Alkaline Phosphatase 75 (38-126) U/L Total Protein 6.0 L (6.3-8.2) g/dL Albumin 3.5 (3.5-5.0) g/dL Influenza Type A (PCR) (Not Detectd) Influenza Type B (PCR) (Not Detectd) RSV (PCR) (Not Detectd) SARS-CoV-2 (PCR) (Not Detectd) 05/26/24 05/26/24 Range/Units 03:50 03:55 WBC (3.8-10.6) k/uL RBC (3.80-5.40) m/uL Hgb (11.4-16.0) gm/dL Hct (34.0-46.0) % MCV (80.0-100.0) fL MCH (25.0-35.0) pg MCHC (31.0-37.0) g/dL RDW (11.5-15.5) % Plt Count (150-450) k/uL MPV Neutrophils % % Lymphocytes % % Monocytes % % Eosinophils % % Basophils % % Neutrophils # (1.3-7.7) k/uL Lymphocytes # (1.0-4.8) k/uL Monocytes # (0-1.0) k/uL Eosinophils # (0-0.7) k/uL Basophils # (0-0.2) k/uL Hypochromasia PT (10.0-12.5) sec INR (<1.2) APTT (22.0-30.0) sec Sodium (137-145) mmol/L Potassium (3.5-5.1) mmol/L Chloride (98-107) mmol/L Carbon Dioxide (22-30) mmol/L Anion Gap mmol/L BUN (7-17) mg/dL Creatinine (0.52-1.04) mg/dL Est GFR (CKD-EPI)AfAm (>60 ml/min/1.73 sqM) Est GFR (CKD-EPI)NonAf (>60 ml/min/1.73 sqM) Glucose (74-99) mg/dL Plasma Lactic Acid Dennis 1.4 (0.7-2.0) mmol/L Calcium (8.4-10.2) mg/dL Total Bilirubin (0.2-1.3) mg/dL AST (14-36) U/L ALT (4-34) U/L Alkaline Phosphatase (38-126) U/L Total Protein (6.3-8.2) g/dL Albumin (3.5-5.0) g/dL Influenza Type A (PCR) Not Detected (Not Detectd) Influenza Type B (PCR) Not Detected (Not Detectd) RSV (PCR) Not Detected (Not Detectd) SARS-CoV-2 (PCR) Not Detected (Not Detectd) Disposition Clinical Impression: Acute exacerbation of chronic obstructive pulmonary disease, Pneumonia Disposition: ADMITTED IP TO THIS [facility] Condition: Stable Is patient prescribed a controlled substance at d/c from ED?: No Referrals: Mary Jo Arora DO [Primary Care Provider] - 1-2 days Time of Disposition: 06:19
[2024-05-26] MEDS: cefTRIAXone IN SWFI 1,000 MG/10 ML SYRINGE IVP STA (06:21)
[2024-05-26] MEDS: ALBUTEROL NEBULIZED 2.5 MG/3 ML INHALATION STA (06:24)
[2024-05-26] MEDS: IPRATROPIUM-ALBUTEROL 3 ML NEB INHALATION STA (06:24)
[2024-05-26] MEDS: AZITHROMYCIN 500 MG in SODIUM CHLORIDE 0.9% 250 ML IVPB STA (06:27)
[2024-05-26 07:54] VITALS: RESP 20
[2024-05-26 09:34] VITALS: TEMP 97.9
[2024-05-26] MEDS: IPRATROPIUM-ALBUTEROL 3 ML NEB INHALATION SCH (10:25)
[2024-05-26] MEDS ORDERED: NON FORMULARY DRUG (Naloxone Hcl [Narcan] 4 MG Each) NASAL PRN (11:22)
[2024-05-26] MEDS ORDERED: NALOXONE IM PRN (11:22)
[2024-05-26] MEDS ORDERED: BACLOFEN 10 MG TAB PO PRN (11:22)
[2024-05-26] MEDS ORDERED: RIVAROXABAN 20 MG TAB PO SCH (11:30)
--- NOTE | 2024-05-26 11:32 | P.HPIM ---
History of Present Illness 78-year-old female was sent in from [facility] because of increasing shortness of breath and fever. Patient only had low-grade fever of 91.9 here. Patient is afebrile today. Patient denies any UTI symptoms at this time patient was co mplaining of cough with sputum production but no pneumonic infiltrate on the chest x-ray. Patient uses 4 L of oxygen was requiring 6 L was given systemic steroids and a dose of antibiotics after which patient had a significant improvement patient is at her baseline at this time. Patient had history of lung cancer received chemotherapy in the past patient denied any symptoms at this time. REVIEW OF SYSTEMS: All other systems are negative except those mentioned in the HPI PHYSICAL EXAMINATION: GENERAL: The patient is alert and oriented x3, not in any acute distress. Well developed, well nourished. HEENT: Pupils are round and equally reacting to light. EOMI. No scleral icterus. No conjunctival pallor. Normocephalic, atraumatic. No pharyngeal erythema. No thyromegaly. CARDIOVASCULAR: S1 and S2 present. No murmurs, rubs, or gallops. PULMONARY: Mild bilateral rhonchi, no wheezing or crackles. ABDOMEN: Soft, nontender, nondistended, normoactive bowel sounds. No palpable organomegaly. MUSCULOSKELETAL: No joint swelling or deformity. EXTREMITIES: No cyanosis, clubbing, or pedal edema. NEUROLOGICAL: Gross neurological examination did not reveal any focal deficits. SKIN: No rashes. Assessment and plan -Acute on chronic hypoxic and hypercapnic respiratory failure secondary to COPD exacerbation patient is significant improvement patient is at her baseline patient is presently requiring 4 L of oxygen saturating at 97% no evidence of pneumonia patient will be discharged on systemic steroids and additional treatments. -Bacterial bronchitis no evidence of pneumonia patient was given total of 5 days of Ceftin for severe bronchitis. -Coronary artery disease -Gastroesophageal reflux disease -Hypertension -Lung cancer in remission at this time Patient is significant improvement since yesterday since admission will be discharged today in stable medical condition back to subacute rehabilitation Past Medical History Past Medical History: Asthma, Coronary Artery Disease (CAD), COPD, GERD/Reflux, Hearing Disorder / Deafness, Hypertension, Myocardial Infarction (HI), Osteoarthritis (OA), Renal Disease Additional Past Medical History / Comment(s): COPD, nephrolithiasis and kidney stones, degenerative arthritis, ESBL Last Myocardial Infarction Date:: 05-04-17 [facility](per pt) History of Any Multi-Drug Resistant Organisms: None Reported Date of last positivie culture/infection: 08/12/17 MDRO Source:: ESBL URINE,BLOOD Past Surgical History: Bariatric Surgery, Heart Catheterization, Joint Replacement Additional Past Surgical History / Comment(s): Shoulder bilateral shoulder replacement, left knee replacement, gastric bypass surgery, right ulnar nerve release, shock wave lithotripsy for nephrolithiasis, cardiac catheterization, cholecystectomy, cystoscopy with placement of right double-J catheter. Colonoscopy 2012. Myocitic syndrome Past Anesthesia/Blood Transfusion Reactions: No Reported Reaction, Previous Prob lems w/ Anesthesia Additional Past Anesthesia/Blood Transfusion Reaction / Comment(s): "STATES WITH ULNAR RELEASE SHE WOKE UP DURING THE SURGERY AND FELT PAIN" Past Psychological History: No Psychological Hx Reported Smoking Status: Never smoker Past Alcohol Use History: Occasional Past Drug Use History: None Reported - Past Family History Sister(s) Family Medical History: Pulmonary Embolus Father Family Medical History: Cancer Additional Family Medical History / Comment(s): LIVER CANCER Medications and Allergies Home Medications Medication Instructions Recorded Confirmed Type Atorvastatin [Lipitor] 40 mg PO HS 05/20/18 05/26/24 History HYDROcodone/APAP 7.5-325MG [[place] 1 tab PO TID@0500,1300,2100 05/20/18 05/26/24 History 7.5-325] Pantoprazole [Protonix] 40 mg PO DAILY 08/17/19 05/26/24 History Albuterol Inhaler [Ventolin Hfa 1 - 2 puff INHALATION Q6HR PRN #1 05/26/24 Rx Inhaler] each Baclofen 5 mg PO BID PRN 05/26/24 05/26/24 History Budesonide-Formot 160-4.5 Mcg 2 puff INHALATION BID #10.2 gm 05/26/24 Rx [Symbicort 160-4.5 Mcg Inhaler] Calcium Carbonate [Tums] 1,000 mg PO Q8H PRN 05/26/24 05/26/24 History Cholecalciferol [Vitamin D3 (25 50 mcg PO DAILY 05/26/24 05/26/24 History Mcg = 1000 Iu)] Docusate [Colace] 100 mg PO DAILY 05/26/24 05/26/24 History Ezetimibe [Zetia] 10 mg PO DAILY 05/26/24 05/26/24 History Famotidine [Pepcid] 20 mg PO BID #30 tablet 05/26/24 Rx Fluticasone Propionate [Flonase 1 spray EA NOSTRIL DAILY 05/26/24 05/26/24 Hi [place] Allergy Relief] Fluticasone/Umeclidin/Vilanter 1 puff INHALATION RT-DAILY 05/26/24 05/26/24 History [Trelegy Ellipta 200-62.5-25] Montelukast [Singulair] 10 mg PO HS 05/26/24 05/26/24 History Naloxone 0.4mg/Ml 0.4 mg IM BID PRN 05/26/24 05/26/24 History Naloxone HCl [Narcan] 4 mg NASAL BID PRN 05/26/24 05/26/24 History Rivaroxaban [Xarelto] 20 mg PO DAILY 05/26/24 05/26/24 History Torsemide [Demadex] 10 mg PO DAILY 05/26/24 05/26/24 History Vibegron [Gemtesa] 75 mg PO DAILY 05/26/24 05/26/24 History cefUROXime axetiL [Ceftin] 500 mg PO BID 4 Days #8 tab 05/26/24 Rx predniSONE 10 mg PO DAILY #30 tab 05/26/24 Rx rOPINIRole HCL [Requip] 0.25 mg PO TID 05/26/24 05/26/24 History traZODone HCL 150 mg PO HS 05/26/24 05/26/24 History Allergies Allergy/AdvReac Type Severity Reaction Status Date / Time amoxicillin Allergy Unknown Verified 05/26/24 07:46 aspirin Allergy Anaphylaxis Verified 05/26/24 07:46 celecoxib [From Celebrex] Allergy Unknown Verified 05/26/24 07:46 ciprofloxacin [From Cipro] Allergy Unknown Verified 05/26/24 07:46 cyproheptadine Allergy Unknown Verified 05/26/24 07:46 ketorolac Allergy Unknown Verified 05/26/24 07:46 nitrofurantoin Allergy Unknown Verified 05/26/24 07:46 [From Macrobid] NSAIDS (Non-Steroidal Allergy Anaphylaxis,ADDISON Verified 05/26/24 07:46 Anti-Inflamma -PARTHA SYNDROME rofecoxib Allergy Unknown Verified 05/26/24 07:46 tramadol [From Ultram] Allergy Anaphylaxis Verified 05/26/24 07:46 paper tape Allergy welt Uncoded 05/26/24 07:46 Physical Exam Vitals: Vital Signs Temp Pulse Resp BP Pulse Ox 05/26/24 10:40 78 05/26/24 10:25 84 05/26/24 09:21 97.9 F 05/26/24 09:16 82 20 116/74 97 05/26/24 07:54 91 20 100/54 92 L 05/26/24 06:33 86 05/26/24 06:26 86 05/26/24 06:00 86 22 120/68 97 05/26/24 05:05 86 24 103/64 96 05/26/24 03:43 99.9 F H 121 H 28 H 132/77 90 L Intake and Output 05/25/24 05/26/24 05/26/24 22:59 06:59 14:59 Other: Weight 131.542 kg Results CBC & Chem 7: 05/26/24 03:50 05/26/24 03:50 Labs: Abnormal Lab Results - Last 24 Hours (Table) 05/26/24 05/26/24 05/26/24 Range/Units 03:50 03:50 03:50 WBC 12.9 H (3.8-10.6) k/uL RBC 3.42 L (3.80-5.40) m/uL Hgb 9.7 L (11.4-16.0) gm/dL Hct 31.4 L (34.0-46.0) % Neutrophils # 11.0 H (1.3-7.7) k/uL Lymphocytes # 0.9 L (1.0-4.8) k/uL INR 1.2 H (<1.2) APTT 31.3 H (22.0-30.0) sec Carbon Dioxide 35 H (22-30) mmol/L BUN 28 H (7-17) mg/dL Glucose 129 H (74-99) mg/dL Total Protein 6.0 L (6.3-8.2) g/dL
--- NOTE | 2024-05-26 11:32 | P.DS ---
Providers Date of admission: 05/26/24 06:14 Attending physician: Raiza Carballo Primary care physician: Mary Jo Arora DO Hospital Course: 78-year-old female was sent in from [facility] because of increasing shortness of breath and fever. Patient only had low-grade fever of 91.9 here. Patient is afebrile today. Patient denies any UTI symptoms at this time patient was complaining of cough with sputum production but no pneumonic infiltrate on the chest x-ray. Patient uses 4 L of oxygen was requiring 6 L was given systemic steroids and a dose of antibiotics after which patient had a significant improvement patient is at her baseline at this time. Patient had history of lung cancer received chemotherapy in the past patient denied any symptoms at this time. REVIEW OF SYSTEMS: All other systems are negative except those mentioned in the HPI PHYSICAL EXAMINATION: GENERAL: The patient is alert and oriented x3, not in any acute distress. Well developed, well nourished. HEENT: Pupils are round and equally reacting to light. EOMI. No scleral icterus. No conjunctival pallor. Normocephalic, atraumatic. No pharyngeal erythema. No thyromegaly. CARDIOVASCULAR: S1 and S2 present. No murmurs, rubs, or gallops. PULMONARY: Mild bilateral rhonchi, no wheezing or crackles. ABDOMEN: Soft, nontender, nondistended, normoactive bowel sounds. No palpable organomegaly. MUSCULOSKELETAL: No joint swelling or deformity. EXTREMITIES: No cyanosis, clubbing, or pedal edema. NEUROLOGICAL: Gross neurological examination did not reveal any focal deficits. SKIN: No rashes. Assessment and plan -Acute on chronic hypoxic and hypercapnic respiratory failure secondary to COPD exacerbation patient is significant improvement patient is at her baseline patient is presently requiring 4 L of oxygen saturating at 97% no evidence of pneumonia patient will be discharged on systemic steroids and additional treatments. -Bacterial bronchitis no evidence of pneumonia patient was given total of 5 days of Ceftin for severe bronchitis. -Coronary artery disease -Gastroesophageal reflux disease -Hypertension -Lung cancer in remission at this time Patient is significant improvement since yesterday since admission will be discharged today in stable medical condition back to subacute rehabilitation Patient Condition at Discharge: Stable Plan - Discharge Summary New Discharge Prescriptions: New Famotidine [Pepcid] 20 mg PO BID #30 tablet predniSONE 10 mg PO DAILY #30 tab Budesonide-Formot 160-4.5 Mcg [Symbicort 160-4.5 Mcg Inhaler] 2 puff INHALATION BID #10.2 gm Albuterol Inhaler [Ventolin Hfa Inhaler] 1 - 2 puff INHALATION Q6HR PRN #1 each PRN Reason: Shortness Of Breath Or Wheezing cefUROXime axetiL [Ceftin] 500 mg PO BID 4 Days #8 tab Continue HYDROcodone/APAP 7.5-325MG [[place] 7.5-325] 1 tab PO TID@0500,1300,2100 Atorvastatin [Lipitor] 40 mg PO HS Pantoprazole [Protonix] 40 mg PO DAILY Naloxone HCl [Narcan] 4 mg NASAL BID PRN PRN Reason: opiod overdose Naloxone 0.4mg/Ml 0.4 mg IM BID PRN PRN Reason: suspected opiate overdose rOPINIRole HCL [Requip] 0.25 mg PO TID Rivaroxaban [Xarelto] 20 mg PO DAILY Torsemide [Demadex] 10 mg PO DAILY Fluticasone Propionate [Flonase Allergy Relief] 1 spray EA NOSTRIL DAILY Docusate [Colace] 100 mg PO DAILY Cholecalciferol [Vitamin D3 (25 Mcg = 1000 Iu)] 50 mcg PO DAILY Calcium Carbonate [Tums] 1,000 mg PO Q8H PRN PRN Reason: increased acid reflux Baclofen 5 mg PO BID PRN PRN Reason: Pain Fluticasone/Umeclidin/Vilanter [Trelegy Ellipta 200-62.5-25] 1 puff INHALATION RT-DAILY traZODone HCL 150 mg PO HS Montelukast [Singulair] 10 mg PO HS Vibegron [Gemtesa] 75 mg PO DAILY Ezetimibe [Zetia] 10 mg PO DAILY Discharge Medication List Atorvastatin [Lipitor] 40 mg PO HS 05/20/18 [History] HYDROcodone/APAP 7.5-325MG [[place] 7.5-325] 1 tab PO TID@0500,1300,2100 05/20/18 [History] Pantoprazole [Protonix] 40 mg PO DAILY 08/17/19 [History] Albuterol Inhaler [Ventolin Hfa Inhaler] 1 - 2 puff INHALATION Q6HR PRN #1 each 05/26/24 [Rx] Baclofen 5 mg PO BID PRN 05/26/24 [History] Budesonide-Formot 160-4.5 Mcg [Symbicort 160-4.5 Mcg Inhaler] 2 puff INHALATION BID #10.2 gm 05/26/24 [Rx] Calcium Carbonate [Tums] 1,000 mg PO Q8H PRN 05/26/24 [History] Cholecalciferol [Vitamin D3 (25 Mcg = 1000 Iu)] 50 mcg PO DAILY 05/26/24 [History] Docusate [Colace] 100 mg PO DAILY 05/26/24 [History] Ezetimibe [Zetia] 10 mg PO DAILY 05/26/24 [History] Famotidine [Pepcid] 20 mg PO BID #30 tablet 05/26/24 [Rx] Fluticasone Propionate [Flonase Allergy Relief] 1 spray EA NOSTRIL DAILY 05/26/24 [History] Fluticasone/Umeclidin/Vilanter [Trelegy Ellipta 200-62.5-25] 1 puff INHALATION RT-DAILY 05/26/24 [History] Montelukast [Singulair] 10 mg PO HS 05/26/24 [History] Naloxone 0.4mg/Ml 0.4 mg IM BID PRN 05/26/24 [History] Naloxone HCl [Narcan] 4 mg NASAL BID PRN 05/26/24 [History] Rivaroxaban [Xarelto] 20 mg PO DAILY 05/26/24 [History] Torsemide [Demadex] 10 mg PO DAILY 05/26/24 [History] Vibegron [Gemtesa] 75 mg PO DAILY 05/26/24 [History] cefUROXime axetiL [Ceftin] 500 mg PO BID 4 Days #8 tab 05/26/24 [Rx] predniSONE 10 mg PO DAILY #30 tab 05/26/24 [Rx] rOPINIRole HCL [Requip] 0.25 mg PO TID 05/26/24 [History] traZODone HCL 150 mg PO HS 05/26/24 [History] Follow up Appointment(s)/Referral(s): Mary Jo Arora DO [Primary Care Provider] - 3 Days Discharge Disposition: TRANSFER TO SNF/F
[2024-05-26] MEDS ORDERED: methylPREDNISolone SOD SUCCI 125 MG/2 ML VIAL IV SCH (12:00)
[2024-05-26 12:47] VITALS: BP 112/74; PULSE 84
[2024-05-26] MEDS ORDERED: HYDROcodone/APAP 7.5-325MG 1 EACH TAB PO SCH (13:00)
[2024-05-26] MEDS ORDERED: SYMBICORT 160-4.5 MCG INHALER INHALATION SCH (20:00)
[2024-05-26] MEDS ORDERED: traZODone HCL 50 MG TAB PO SCH (21:00)
[2024-05-26] MEDS ORDERED: MONTELUKAST 10 MG TAB PO SCH (21:00)
[2024-05-26] MEDS ORDERED: methylPREDNISolone SOD SUCCI 40 MG/ML 1 ML VIAL IV SCH (21:00)
[2024-05-26] MEDS ORDERED: ATORVASTATIN 40 MG TAB PO SCH (21:00)
[2024-05-27] MEDS ORDERED: TORSEMIDE 20 MG TAB PO SCH (09:00)
[2024-05-27] MEDS ORDERED: FLUTICASONE NASAL 50MCG/SPRAY 16GM BTL EA NOSTRIL SCH (09:00)
[2024-05-27] MEDS ORDERED: EZETIMIBE 10 MG TAB PO SCH (09:00)
[2024-05-27] MEDS ORDERED: PATIENT'S OWN (Vibegron [Gemtesa] 75 MG Tablet) PO SCH (09:00)
[2024-05-27] MEDS ORDERED: DOCUSATE 100 MG CAP PO SCH (09:00)
== END 2024-05-26 13:37 ==
LOC: EC 03:42 → 5NMEDONC 06:14
PROVIDERS: ADMIT Hospitalist; ATTEND Hospitalist
DX: J44.1 Chronic obstructive pulmonary disease with (acute) exacerbation (principal); J96.21 Acute and chronic respiratory failure with hypoxia; J96.22 Acute and chronic respiratory failure with hypercapnia; I25.10 Atherosclerotic heart disease of native coronary artery without angina pectoris; K21.9 Gastro-esophageal reflux disease without esophagitis; I10 Essential (primary) hypertension; Z92.21 Personal history of antineoplastic chemotherapy; Z85.118 Personal history of other malignant neoplasm of bronchus and lung; H91.90 Unspecified hearing loss, unspecified ear; I25.2 Old myocardial infarction; M19.90 Unspecified osteoarthritis, unspecified site; N28.9 Disorder of kidney and ureter, unspecified; Z87.442 Personal history of urinary calculi; Z80.0 Family history of malignant neoplasm of digestive organs; Z79.899 Other long term (current) drug therapy; Z79.51 Long term (current) use of inhaled steroids; Z79.01 Long term (current) use of anticoagulants; Z88.1 Allergy status to other antibiotic agents; Z88.8 Allergy status to other drugs, medicaments and biological substances; Z91.048 Other nonmedicinal substance allergy status
CPT/HCPCS: 96361; 96365; 96375; 99285; 36415; 94640; 93005; 80053; 83605; 85025; 85610; 85730; 87040; 84145; 87636; 71045; G0378; J0456; J0696; J2919